=== PATIENT | female | born 1975 | race Caucasian/White ===

== ENCOUNTER 2024-05-28 15:58 | Outpatient (RCR) | payer MEDICARE, MEDICAID, SELFPAY ==
--- NOTE | 2024-05-28 17:31 | OPREHPOC ---
Outpatient Therapy Plan of Care This is a Multidisciplinary Plan of Care that may contain components documented by all disciplines (PT, OT, and ST.) PT Problem 1 PT Problem #1 Knowledge Deficit PT Goal 1 Goal / Goal Update The patient will be independent in a home exercise program. Target Visit 6 PT Problem 2 PT Problem #2 Pain PT Goal 1 Goal / Goal Update The patient will report no greater than 2/10 neck pain at worst Target Visit 12 PT Problem 3 PT Problem #3 Impaired Functional Mobility PT Goal 1 Goal / Goal Update The patient will demonstrate 20 % or less self perceived disability per the Neck Index questionnaire. Target Visit 12 PT Problem 4 PT Problem #4 Impaired Range of Motion PT Goal 1 Goal / Goal Update 1. 50 degrees or better active cervical flexion and extension 2. 40 degrees or better active cervical side bending bilat 3. 75 degrees or better active cervical rotation bilat Target Visit 12 PT Problem 5 PT Problem #5 Impaired Strength PT Goal 1 Goal / Goal Update 1. patient to display 5/5 UE strength 2. 4/5 or better deep neck flexor strength Target Visit 12
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
--- NOTE | 2024-06-18 09:03 | OPREHPOC ---
Outpatient Therapy Plan of Care This is a Multidisciplinary Plan of Care that may contain components documented by all disciplines (PT, OT, and ST.) PT Problem 1 PT Problem #1 Knowledge Deficit PT Goal 1 Goal / Goal Update The patient will be independent in a home exercise program. Target Visit 6 Progress Met PT Problem 2 PT Problem #2 Pain PT Goal 1 Goal / Goal Update The patient will report no greater than 2/10 neck pain at worst Target Visit 12 Progress Not Met PT Problem 3 PT Problem #3 Impaired Functional Mobility PT Goal 1 Goal / Goal Update The patient will demonstrate 20 % or less self perceived disability per the Neck Index questionnaire. Target Visit 12 Progress Not Met PT Problem 4 PT Problem #4 Impaired Range of Motion PT Goal 1 Goal / Goal Update 1. 50 degrees or better active cervical flexion and extension 2. 40 degrees or better active cervical side bending bilat 3. 75 degrees or better active cervical rotation bilat Target Visit 12 Progress Not Met PT Problem 5 PT Problem #5 Impaired Strength PT Goal 1 Goal / Goal Update 1. patient to display 5/5 UE strength 2. 4/5 or better deep neck flexor strength Target Visit 12 Progress Not Met
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
--- NOTE | 2024-07-09 07:36 | OPREHPOC ---
Outpatient Therapy Plan of Care This is a Multidisciplinary Plan of Care that may contain components documented by all disciplines (PT, OT, and ST.) PT Problem 1 PT Problem #1 Knowledge Deficit PT Goal 1 Goal / Goal Update The patient will be independent in a home exercise program. Target Visit 6 Progress Met PT Problem 2 PT Problem #2 Pain PT Goal 1 Goal / Goal Update The patient will report no greater than 2/10 neck pain at worst Target Visit 18 Progress Not Met PT Problem 3 PT Problem #3 Impaired Functional Mobility PT Goal 1 Goal / Goal Update The patient will demonstrate 20 % or less self perceived disability per the Neck Index questionnaire. Target Visit 18 Progress Not Met PT Problem 4 PT Problem #4 Impaired Range of Motion PT Goal 1 Goal / Goal Update 1. 50 degrees or better active cervical flexion and extension 2. 40 degrees or better active cervical side bending bilat 3. 75 degrees or better active cervical rotation bilat. partially met Target Visit 18 Progress Not Met PT Problem 5 PT Problem #5 Impaired Strength PT Goal 1 Goal / Goal Update 1. patient to display 5/5 UE strength 2. 4/5 or better deep neck flexor strength Target Visit 18 Progress Not Met PT Goal 2 Goal / Goal Update progressing
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
--- NOTE | 2024-07-15 09:13 | OPREHPOC ---
Outpatient Therapy Plan of Care This is a Multidisciplinary Plan of Care that may contain components documented by all disciplines (PT, OT, and ST.) PT Problem 1 PT Problem #1 Knowledge Deficit PT Goal 1 Goal / Goal Update The patient will be independent in a home exercise program. Target Visit 6 Progress Met PT Problem 2 PT Problem #2 Pain PT Goal 1 Goal / Goal Update The patient will report no greater than 2/10 neck pain at worst Target Visit 18 Progress Not Met PT Problem 3 PT Problem #3 Impaired Functional Mobility PT Goal 1 Goal / Goal Update The patient will demonstrate 20 % or less self perceived disability per the Neck Index questionnaire. Target Visit 18 Progress Met PT Problem 4 PT Problem #4 Impaired Range of Motion PT Goal 1 Goal / Goal Update 1. 50 degrees or better active cervical flexion and extension 2. 40 degrees or better active cervical side bending bilat 3. 75 degrees or better active cervical rotation bilat. partially met Target Visit 18 Progress Partially Met PT Problem 5 PT Problem #5 Impaired Strength PT Goal 1 Goal / Goal Update 1. patient to display 5/5 UE strength 2. 4/5 or better deep neck flexor strength Target Visit 18 Progress Met PT Goal 2 Goal / Goal Update .
--- NOTE | 2024-07-15 09:14 | PTOPDC ---
Assessment and note entered by JT File, PT Evaluation Information Assessment Status Discharge ICD-10 Condition Codes (PT) Cervicalgia M54.2,Pain in Thoracic Spine M54.6 Onset 05/21/24 Subjective Information patient reports she feels Good today. she reports she was unable to get her morning stretching done before therapy, but reports she still has little to no pain in the neck. she reports her pain does not fluctuate much over a 2- 3/10 pain any more. Reported Pain Level Pain Score 2: Self Report Assessment PT Clinical Summary mrs. reyez presents to skilled PT for her 18th skilled PT visit today. she presents with reduced pain, improve cervical rom, improve UE strength, and improved cervical strength. she has met or partially met nearly all goals. she is ready to transition to an independent HEP at this time. she will be DC'd from skilled PT services today. Plan of Care PT Services Indicated Yes
== END 2024-07-15 15:08 | disposition other institution (70) ==
LOC: CHSPT 15:58
PROVIDERS: Visit Provider Family Medicine
DX: M54.6 Pain in thoracic spine (principal); S16.1XXA Strain of muscle, fascia and tendon at neck level, initial encounter
CPT/HCPCS: 97110; 97140; 97150; 97161

== ENCOUNTER 2024-06-04 09:40 | Outpatient (CLI) | payer MEDICARE, MEDICAID, SELFPAY ==
--- NOTE | ~2024-06-04 | CT_ITS ---
Clinical Indication: Brachiocephalic artery stenosis CT Scan of the Chest with Contrast: Technique: Contiguous sections were acquired throughout the chest after intravenous administration of 75 cc of Omnipaque 350. Dose reduction technique was used on this scan by utilizing automated exposu re control and iterative reconstruction technique. The dose-length product (DLP) was 242.91 mGy-cm. Findings: There is no evidence of any significant mediastinal, hilar or axillary lymphadenopathy. Large densely calcified precarinal lymph node present. There is no filling defect in the pulmonary arterial tree t o suggest pulmonary embolus. There is no evidence of aortic dissection or aneurysm. No significant ar terial stenosis seen of the great vessels or aortic arch region. There is no evidence of pleural or pericardial effusion. Endovascular coils or other metallic artifact present in the left lower lobe. There is a small pulmon astrid AVM peripheral to the coils in the left lower lobe, with nidus measuring approximately 8 mm (axia l image 69). Calcified right lower lobe granuloma present. Images through the upper abdomen reveal no abnormalities. Impression: Small left lower lobe pulmonary AVM with 8 mm nidus and evidence of prior proximal endovascular coili ng. No evidence of brachiocephalic arterial stenosis. Reviewed, dictated and finalized at location M. RINTENDENT ELECTRIC POWER Impression: Small left lower lobe pulmonary AVM with 8 mm nidus and evidence of prior proxi mal endovascular coiling. No evidence of brachiocephalic arterial stenosis.
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
--- OUTSIDE RECORDS SUMMARY | 2024-06-05 22:41 | XMS_ITS | Encounter Summary ---
Author Organization [facility] [employer] [facility] Address [address] [place] [address] Phone Care Team Providers Care Hammer Runner Name Role Phone Robert Bernard MD Primary Care Provider Mark Mccurdy MD Unavailable [phone] Encounter Details Date Type Department Care Team (Latest Contact Info) Description 12/04/2016 Orders Only [facility] CONVERSION Scanning, Provider Social History Tobacco Use Types Packs/Day Years Used Date Smoking Tobacco: Never Assessed Comments Unknown Sex and Gender Information Value Date Recorded Sex Assigned at Not on file 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 Gender Identity Not on file Sexual Orientation Not on file documented as of this encounter Plan of Treatment Not on file documented as of this encounter Procedures Procedure Name Priority Date/Time Associated Diagnosis Comments VASCULAR LABORATORY REPORT 12/04/2016 6:35 PM CDT documented in this encounter Results * VASCULAR LABORATORY REPORT (12/04/2016 6:35 PM CDT) Anatomical Region Laterality Modality Ultrasound us Provider Scanning CV VASCULAR PROCEDURES Final R esult documented in this encounter Visit Diagnoses Not on filedocumented in this encounter Care Teams Hammer Runner Relationship Specialty Start Date End Date Robert Bernard MD PCP - General 10/06/16 Mark Mccurdy MD [address] [place] [address] Referring Physician Cardiology 01/21/20 documented as of this encounter
--- OUTSIDE RECORDS SUMMARY | 2024-06-05 22:41 | XMS_ITS | Encounter Summary ---
Author Organization [facility] Address [address] [place] [address] Phone Care Team Providers Care Office Support Name Role Phone Robert Bernard MD Primary Care Provider Mark Mccurdy MD Unavailable Encounter Details Date Type Department Care Team (Late st Contact Info) Description 07/03/2015 Orders Only [facility] IM CAR CLINCONV ProviderToney MD [address] [place], [place] [id number] Social History Tobacco Use Types Packs/Day Years Used Date Smoking Tobacco: Never Assessed Comments Unknown Sex and Gender Information Value Date Recorded Sex Assigned at Not on file 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 Historical Provider CV CARDIAC SERVICES HUNTER COCHRAN Final Result * CARDIOLOGY REPORT (07/03/2015) Anatomical Region Laterality Modality Other Narrative 07/03/2015 Ordered by an unspecified provider. Historical Provider CV CARDIAC SERVICES HUNTER COCHRAN Final Result documented in this encounter Visit Diagnoses Not on filedocumented in this encounter Care Teams Office Support Relationship Specialty Start Date End Date Robert Bernard MD PCP - General 10/06/16 Mark Mccurdy MD [address] [facility] [address] [place] [address] Referring Physician Cardiology 01/21/20 documented as of this encounter
--- OUTSIDE RECORDS SUMMARY | 2024-06-05 22:41 | XMS_ITS | Encounter Summary ---
Author Organization [facility] Address [address] [place] [address] Phone Care Team Providers Care Tray Checker Name Role Phone Robert Bernard MD Primary Care Provider Mark Mccurdy MD Unavailable [phone] Encounter Details Date Type Department Care Team (Late st Contact Info) Description 02/05/2015 Orders Only [facility] IM CAR CLINCONV ProviderToney MD [address] [place], [place] [id number] Social History Tobacco Use Types Packs/Day Years Used Date Smoking Tobacco: Never Assessed Comments Unknown Sex and Gender Information Value Date Recorded Sex Assigned at Not on file 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 Historical Provider CV CARDIAC SERVICES HUNTER COCHRAN Final Result * CARDIOLOGY REPORT (02/05/2015) Anatomical Region Laterality Modality Other Narrative 02/05/2015 Ordered by an unspecified provider. Historical Provider CV CARDIAC SERVICES HUNTER COCHRAN Final Result documented in this encounter Visit Diagnoses Not on filedocumented in this encounter Care Teams Tray Checker Relationship Specialty Start Date End Date Robert Bernard MD PCP - General 10/06/16 Mark Mccurdy MD [address] [facility] [address] [place] [address] Referring Physician Cardiology 01/21/20 documented as of this encounter
--- OUTSIDE RECORDS SUMMARY | 2024-06-05 22:41 | XMS_ITS | Encounter Summary ---
Author Organization [facility] [employer] [facility] Address [address] [place] [address] Phone Care Team Providers Care Hazmat Technician Name Role Phone Robert Bernard MD Primary Care Provider [phone] Mark Mccurdy MD Unavailable [phone] Encounter Details Date Type Department Care Team (Late st Contact Info) Description 04/14/2015 Orders Only [facility] IM CAR CLINCONV Provider, MD Toney [address] [place] [address] Social History Tobacco Use Types Packs/Day Years Used Date Smoking Tobacco: Never Assessed Comments Unknown Sex and Gender Information Value Date Recorded Sex Assigned at Not on file 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 Historical Provider CV CARDIAC SERVICES HUNTER COCHRAN Final Result documented in this encounter Visit Diagnoses Not on filedocumented in this encounter Care Teams Hazmat Technician Relationship Specialty Start Date End Date Robert Bernard MD PCP - General 10/06/16 Mark Mccurdy MD [address] [place] [address] Referring Physician Cardiology 01/21/20 documented as of this encounter
--- OUTSIDE RECORDS SUMMARY | 2024-06-05 22:41 | XMS_ITS | Encounter Summary ---
Author Organization [facility] Address [address] [place] [address] Phone Care Team Providers Care Operations Business Partner Name Role Phone Robert Bernard MD Primary Care Provider [phone] Mark Mccurdy MD Unavailable [phone] Encounter Details Date Type Department Care Team (Late st Contact Info) Description 07/15/2014 Orders Only [facility] IM CAR CLINCONV ProviderToney MD [address] [place], [place] [phone] Social History Tobacco Use Types Packs/Day Years Used Date Smoking Tobacco: Never Assessed Comments Unknown Sex and Gender Information Value Date Recorded Sex Assigned at Not on file 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 Historical Provider CV CARDIAC SERVICES PROCE DIMAS Final Result * CARDIOLOGY REPORT (07/15/2014) Anatomical Region Laterality Modality Other Narrative 07/15/2014 Ordered by an unspecified provider. Historical Provider CV CARDIAC SERVICES HUNTER COCHRAN Final Result documented in this encounter Visit Diagnoses Not on filedocumented in this encounter Care Teams Operations Business Partner Relationship Specialty Start Date End Date Robert Bernard MD PCP - General 10/06/16 Mark Mccurdy MD [address] [facility] [address] [place] [address] Referring Physician Cardiology 01/21/20 documented as of this encounter
--- OUTSIDE RECORDS SUMMARY | 2024-06-05 22:41 | XMS_ITS | Encounter Summary ---
Author Organization [facility] Address [address] [place] [address] Phone Care Team Providers Care Hoisting Laborer Name Role Phone Robert Bernard MD Primary Care Provider [phone] Mark Mccurdy MD Unavailable [phone] Encounter Details Date Type Department Care Team (Late st Contact Info) Description 09/26/2014 Orders Only [facility] IM CAR CLINCONV ProviderToney MD [address] [place], [place] [phone] Social History Tobacco Use Types Packs/Day Years Used Date Smoking Tobacco: Never Assessed Comments Unknown Sex and Gender Information Value Date Recorded Sex Assigned at Not on file 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 Historical Provider CV CARDIAC SERVICES HUNTER COCHRAN Final Result * CARDIOLOGY REPORT (09/26/2014) Anatomical Region Laterality Modality Other Narrative 09/26/2014 Ordered by an unspecified provider. Historical Provider CV CARDIAC SERVICES HUNTER COCHRAN Final Result documented in this encounter Visit Diagnoses Not on filedocumented in this encounter Care Teams Hoisting Laborer Relationship Specialty Start Date End Date Robert Bernard MD PCP - General 10/06/16 Mark Mccurdy MD [address] [facility] [address] [place] [address] Referring Physician Cardiology 01/21/20 documented as of this encounter
--- OUTSIDE RECORDS SUMMARY | 2024-06-05 22:41 | XMS_ITS | Clinical Summary ---
Author Organization [facility] Address [address] [place] [address]. [place], [place] [address] [place] [address] Care Team Providers Care Shipping Manager Name Role Phone Robert Bernard MD Primary Care Provider Social History Tobacco Use Types Packs/Day Years Used Date Smoking Tobacco: Former Comments No Sex and Gender Information Value Date Recorded Sex Assigned at Not on file Legal Sex Female 9:15 PM CDT Gender Identity Not on file Sexual Orientation Not on file Last Filed Vital Signs Vital Sign Reading Time Taken Comments Blood Pressure 114/82 06/29/2014 2:06 PM BARREL RAISER HELPER Pulse 91 06/29/2014 2:06 PM BARREL RAISER HELPER Temperature - - Respiratory Rate 18 06/29/2014 2:06 PM BARREL RAISER HELPER Oxygen Saturation - - Inhaled Oxygen Concentration - - Weight 64.4 kg (142 lb) 06/29/2014 2:06 PM BARREL RAISER HELPER Height 167.6 cm (5' 6 ) 06/29/2014 2:06 PM BARREL RAISER HELPER Body Mass Index 22.92 06/29/2014 2:06 PM BARREL RAISER HELPER Plan of Treatment Health Maintenance Due Date Last Done Comments Cervical Cancer Screening Pa p Smear (Age 30 to 64) Every 3 Years 1976 Colorectal Cancer Screening Colonoscopy (10 Years) 1976 Annual Physical 1979 Hepatitis C 1994 Hepatitis B Vaccines (1 of 3 - 19+ 3-dose series) 1995 Cervical Cancer Screening Pa p with HPV Testing (Age 30 to 64) Every 5 Years 2006 Cervical Cancer Screening wi th HPV 2006 COVID-19 Vaccine (2023-2 5 season) 2024 Influenza Adult (#1) 2024 02/07/2016 Mammogram Screening 12/20/2024 12/20/2022, 10/31/2022 DTaP, Tdap and Td Vaccines ( 2 - Td or Tdap) 01/10/2026 01/11/2016 Meningococcal B Vaccine Aged Out No l onger eligible based on patient's age to complete this topic Meningococcal Vaccine Aged Out No bebeto mckenzie eligible based on patient's age to complete this topic Pneumococcal Vaccine: Pediatrics (0 to 5 Years) and At-Risk Patients (6 to 64 Years) Aged Out No longer eligible b ased on patient's age to complete this topic RSV Immunizations Under 20 Months Aged Out No longer eligible b ased on patient's age to complete this topic Procedures Procedure Name Priority Date/Time Associated Diagnosis Comments MG DIAG W JESSIE RT DIGI Routine 12/20/2022 1:41 PM CDT Abnormal mammogram from Last 3 Months or Most Recently Relevant to Health Maintenance Results * MG DIAG W JESSIE RT DIGI (12/20/2022 1:41 PM CDT) Anatomical Region Laterality Modality Breast Right Mammography, Rad iographic Imaging 12/20/2022 3:1 8 PM CDT Narrative 12/20/2022 3:25 PM CDT Examination: Digital right diagnostic mammogram with CAD. [id number] Clinical history: Follow-up, abnormal screening mammogram. History of breast cysts. Comparison: 10/31/2022. Technique: True lateral and spot compression CC and MLO right digital mammograms. The exam was interpreted with the use of a computer-aided detection (CAD) system. Additional 3-D Tomosynthesis images were acquired. Tissue density: ??The breast tissue is heterogeneously dense. Findings: The patient returned for additional diagnostic imaging to further evaluate the upper outer quadrant fibroglandular asymmetry identified at screening. The area in question changes in configuration on the true lateral view. Under spot compression there is subtotal effacement with suggestion of an underlying partially obscured round to ovoid mass at the 11:30 position projecting approximately 7 cm deep to the nipple in the CC projection. This measures approximately 1.7 cm in greatest dimension. The visualized margins appear smooth. There is no associated architectural distortion or microcalcification. No other discrete mammographic abnormality is identified. Examination: Right breast ultrasound. Technique:Grayscale and color Doppler images. Findings: Survey was performed from the 9:00-3:00 positions through 12:00 encompassing the broad region of interest. At the 12:00 position 3 cm from the nipple a 1.9 x 1.6 x 0.7 cm simple cyst is demonstrated judged concordant with the mammographic finding. Additional scattered simple cysts are demonstrated measuring up to 1.8 cm in greatest dimension. These are mammographically occult. [place] appearing tissue architecture is otherwise demonstrated. No other sonographically discrete finding is identified. No sonographically suspicious abnormality is identified. Based on these findings, resumption of routine mammographic screening in October 2023 would now seem adequate. These findings were discussed with the patient. IMPRESSION: Additional diagnostic imaging fails to disclose any suspicious abnormality. There are benign findings as described. Resumption of routine mammographic screening in October 2023 would now seem adequate. Recommendation: 1: Routine screening mammogram ??Bilateral ?? in October 2023 Overall assessment: ACR BI-RADS Category 2 - Benign. Return for Routine Follow-Up: Yes Ordered By: RAHEEL YAEGER Interpreted By: Kevin Cabrera MD, 12/20/2022 3:18 PM Raheel Yeager [facility] MAMMO Final Result from Last 3 Months or Most Recently Relevant to Health Maintenance Insurance MEDICARE MEDICAID Care Teams Shipping Manager Relationship Specialty Start Date End Date Robert Bernard MD [address] [place] [phone] PCP - General FAMILY PRACTICE 07/01/19
--- OUTSIDE RECORDS SUMMARY | 2024-06-05 22:41 | XMS_ITS | Encounter Summary ---
Author Organization 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 Historical Provider [facility] Final Result * CARDIOLOGY REPORT (06/06/2015) Anatomical Region Laterality Modality Other Narrative 06/06/2015 Ordered by an unspecified provider. Historical Provider [facility] Final Result documented in this encounter Visit Diagnoses Not on filedocumented in this encounter Care Teams Gis Analyst Developer Relationship Specialty Start Date End Date Robert Bernard MD PCP - General 10/06/16 Mark Mccurdy MD [address] [facility] [address] [place] [address] Referring Physician Cardiology 01/21/20 documented as of this encounter
--- OUTSIDE RECORDS SUMMARY | 2024-06-05 22:41 | XMS_ITS | Referral Summary ---
Author Organization [facility] Address [address] [place] [address] Care Team Providers Care Antenna Specialist Name Role Phone Robert Bernard MD Primary Care Provider [phone] Mark Mccurdy MD Unavailable [phone] Encounters Date Type Department Care Team Description 05/26/2024 Orders Only [facility] Card[facility] [address] [facility] [address] [place] [address] Hema Norton MD PhD 05/26/2024 Telephone [facility] [address] [facility] [address]th [place] [address] [place] [address] Hema Norton MD PhD 05/23/2024 Telephone [facility] [address] [facility] 8th [place] [address] [place] [address] Hema Norton MD PhD 03/10/2024 Orders Only [facility] [address] [facility] 8th [place] [address] [place] [address] Douglas Orta MD from Last 3 Months Allergies No known active allergies Medications venlafaxine 150 mg tablet extended release 24hr 24 hr tablet Take 1 tablet (150 mg total) by mouth daily 04/29/2016 Active omeprazole (PriLOSEC) 20 mg capsule Take 1 capsule (20 mg total) by mouth daily as needed 02/24/2020 Active ARIPiprazole (ABILIFY) 10 mg tablet 1 tablet (10 mg total) daily 03/29/2021 Active baclofen (LIORESAL) 20 mg tabletIndicatio ns:Chronic pain syndrome Take 1 tablet (20 mg total) by mouth every 6 (six) hours 120 tablet 5 03/30/2021 Active atorvastatin (LIPITOR) 10 mg tablet TAKE 1 TABLET BY MOUTH EVERY DAY AT BEDTIME 30 tablet 11 04/24/2022 Active traMADoL (ULTRAM) 50 mg tablet Take by mouth 2 (two) times a day as needed 12/26/2022 Active clopidogreL (PLAVIX) 75 mg tablet TAKE 1 TABLET BY MOUTH DAILY 30 tablet 10 02/21/2024 Active metoprolol XL (TOPROL-XL) 100 mg 24 hr tablet TAKE 1 TABLET BY MOUTH DAILY 30 tablet 10 02/21/2024 Active Active Problems Problem Noted Date Diagnosed Date Patent foramen ovale 12/31/2017 SSS (sick sinus syndrome) (CMS/HCC) 12/27/2017 Presence of cardiac pacemaker 12/27/2017 Chronic pain syndrome 12/06/2017 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 VICE PRESIDENT Gender Identity Not on file Sexual Orientation Not on file Last Filed Vital Signs Vital Sign Reading Time Taken Comments Blood Pressure 115/79 02/26/2023 8:44 AM CDT Pulse 83 02/26/2023 8:44 AM CDT Temperature 36.5 ??C (97.7 ??F) 03/30/2021 10:[address] Respiratory Rate 16 03/30/2021 10:39 AM ORTHODONTIST VICE PRESIDENT Oxygen Saturation 99% 02/26/2023 8:44 AM CDT Inhaled Oxygen Concentration - - Weight 79.4 kg (175 lb) 02/26/2023 8:44 AM CDT Height 162.6 cm (5' 4 ) 12/05/2021 10:25 AM CDT Body Mass Index 30.04 12/05/2021 10:25 AM CDT Plan of Treatment Not on file Goals Goal Patient Goal Type Associated Problems Recent Progress Patient-Stated? Author CCM Chronic Pain Care Plan Chronic Care Management No change(03/30 10:46 AM ORTHODONTIST VICE PRESIDENT) No Gillian Vela RN Note: Problem: Chronic Pain Goals: 1. Minimize further functional decline 2. Maximize quality of life 3. Control pain Strategies: - Activity/exercise program recommendation - Conservative stepwise pain medicine strategy with multi-disciplinary approach - Recommend healthy lifestyle strategies and compensatory methods as needed Medical Devices Implanted Type Area Relocation Associate Device Identifier Shelf Expiration Date Model / Serial / Lot Pacemaker Chest Procedures Procedure Name Priority Date/Time Associated Diagnosis Comments DEVICE CHECK - REMOTE Routine 05/26/2024 9:30 PM ORTHODONTIST VICE PRESIDENT DEVICE CHECK - REMOTE Routine 03/10/2024 3:17 PM CDT from Last 3 Months Results * DEVICE CHECK - REMOTE (05/26/2024 9:30 PM ORTHODONTIST VICE PRESIDENT) Anatomical Region Laterality Modality Other 05/26/2024 9:30 PM ORTHODONTIST VICE PRESIDENT Narrative 06/01/2024 9:32 AM ORTHODONTIST VICE PRESIDENT Interpretation Summary: Battery and Leads (BL) Normal parameters noted on battery and lead(s) --- 1.5 yrs (1 to 1.5 yrs) remaining longevity (implanted 2014). ?Lead impedance, threshold, and RA sensing trends stable and appropriate. ?? No short V-V intervals. R wave out of range --- R wave 4.5 mV. ?? Trend is stable. ?? RV sensitivity is programmed 2.0 mV. Presenting Rhythm (RI) Atrial Sensing-Ventricular Sensing (-VS) --- /VS (SR/ST) 94 to 105 bpm. Arrhythmic events (AE) Atrial High-Rate Episode(s) identified --- Since 10/28/24: ?? 2 SVT/ST detections, max 38 sec, with EGMs appearing to show 1:1 AV rhythm, likely ST, max 182 bpm. Transmission Information (TI) Device Summary Report Follow Up (FU) Patient's primary treating physician will be apprised of findings Procedure Hema Bean MD PhD - 06/01/2024 Interpretation Summary: Battery and Leads (BL) Normal parameters noted on battery and lead(s) --- 1.5 yrs (1 to 1.5 yrs)remaining longevity (implanted 2014). Lead impedance, threshold, and RAsensing trends stable and appropriate. No short V-V intervals. R wave out of range --- R wave 4.5 mV. Trend is stable. RV sensitivityis programmed 2.0 mV. Presenting Rhythm (RI) Atrial Sensing-Ventricular Sensing (-VS) --- /VS (SR/ST) 94 to 105bpm. Arrhythmic events (AE) Atrial High-Rate Episode(s) identified --- Since 03/10/24: 2 SVT/STdetections, max 38 sec, with EGMs appearing to show 1:1 AV rhythm, likelyST, max 182 bpm. Transmission Information (TI) Device Summary Report Follow Up (FU) Patient's primary treating physician will be apprised of findings Hema Norton MD PhD [facility] PROCEDURES Final Result * DEVICE CHECK - REMOTE (03/10/2024 3:17 PM CDT) Anatomical Region Laterality Modality Other 03/10/2024 3:17 PM CDT Narrative 03/17/2024 10:07 AM ORTHODONTIST VICE PRESIDENT Interpretation Summary: Battery and Leads (BL) Normal parameters noted on battery and lead(s) --- 1.5 yrs (1 to 2 yrs) remaining longevity (implanted 2014). ?? Lead impedance, threshold, and RA sensing trends stable and appropriate. ??No short V-V intervals. R wave out of range --- R wave 3.8 mV. ?? Trend is stable over the past year. ?RV sensitivity is programmed 2.0 mV. ?CHANNEL PARTNERS <0.1%. Presenting Rhythm (RI) Atrial Sensing-Ventricular Sensing (-VS) --- /VS (SR) 74 to 84 bpm. Arrhythmic events (AE) Atrial High-Rate Episode(s) identified --- Since 11/20/23: ?? 2 SVT/ST detections, max 25 sec, with EGMs appearing to show 1:1 AV rhythm, likely ST, max 170s. Anticoagulation ??(AC) Patient is not on anticoagulant therapy Anticoagulation is not clinically indicated Transmission Information (TI) Device Summary Report Procedure Note Douglas Orta MD - 03/17/2024 Interpretation Summary: Battery and Leads (BL) Normal parameters noted on battery and lead(s) --- 1.5 yrs (1 to 2 yrs)remaining longevity (implanted 2014). Lead impedance, threshold, and RAsensing trends stable and appropriate. No short V-V intervals. R wave out of range --- R wave 3.8 mV. Trend is stable over the pastyear. RV sensitivity is programmed 2.0 mV. CHANNEL PARTNERS <0.1%. Presenting Rhythm (RI) Atrial Sensing-Ventricular Sensing (-VS) --- /VS (SR) 74 to 84 bpm. Arrhythmic events (AE) Atrial High-Rate Episode(s) identified --- Since 11/20/23: 2 SVT/STdetections, max 25 sec, with EGMs appearing to show 1:1 AV rhythm, likelyST, max 170s. Anticoagulation (AC) Patient is not on anticoagulant therapy Anticoagulation is not clinically indicated Transmission Information (TI) Device Summary Report Douglas Orta MD [facility] PROCEDURES Final Result from Last 3 Months [place] [address] [facility] Care Teams Antenna Specialist Relationship Specialty Start Date End Date Robert Bernard MD PCP - General 10/06/16 Mark Mccurdy MD [address] [place] [address] Referring Physician Cardiology 01/21/20
--- OUTSIDE RECORDS SUMMARY | 2024-06-05 22:41 | XMS_ITS | Encounter Summary ---
Author Organization [facility] Address [address] [place] [address] Phone Care Team Providers Care Mems Engineer Name Role Phone Robert Bernard MD Primary Care Provider Mark Mccurdy MD Unavailable [phone] Encounter Details Date Type Department Care Team (Late st Contact Info) Description 12/10/2015 Orders Only [facility] Provider, MD Toney [address] [place] [id number] Social History Tobacco Use Types Packs/Day Years Used Date Smoking Tobacco: Never Assessed Comments Unknown Sex and Gender Information Value Date Recorded Sex Assigned at Not on file Legal Sex Female 5:12 AM DENTURE WAXER Gender Identity Not on file Sexual Orientation Not on file documented as of this encounter Plan of Treatment Not on file documented as of this encounter Procedures Procedure Name Priority Date/Time Associated Diagnosis Comments CARDIOLOGY REPORT 12/10/2015 documented in this encounter Results * CARDIOLOGY REPORT (12/10/2015) Anatomical Region Laterality Modality Other Narrative 12/10/2015 Ordered by an unspecified provider. Historical Provider [facility] Final Result documented in this encounter Visit Diagnoses Not on filedocumented in this encounter Care Teams Mems Engineer Relationship Specialty Start Date End Date Robert Bernard MD PCP - General 10/06/16 Mark Mccurdy MD [address] [place] [address] Referring Physician Cardiology 01/21/20 documented as of this encounter
--- OUTSIDE RECORDS SUMMARY | 2024-06-05 22:41 | XMS_ITS | Encounter Summary ---
Author Organization [facility] Address [address] [place] [address] Phone Care Team Providers Care Carpentry Teacher Name Role Phone Robert Bernard MD Primary Care Provider Mark Mccurdy MD Unavailable [phone] Encounter Details Date Type Department Care Team (Late st Contact Info) Description 07/16/2016 Orders Only [facility] ProviderToney MD [address] [place], [place] [id number] Social History Tobacco Use Types Packs/Day Years Used Date Smoking Tobacco: Never Assessed Comments Unknown Sex and Gender Information Value Date Recorded Sex Assigned at Not on file Legal Sex Female 5:12 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 Historical Provider [facility] Final Result * CARDIOLOGY REPORT (07/16/2016) Anatomical Region Laterality Modality Other Narrative 07/16/2016 Ordered by an unspecified provider. Historical Provider [facility] Final Result documented in this encounter Visit Diagnoses Not on filedocumented in this encounter Care Teams Carpentry Teacher Relationship Specialty Start Date End Date Robert Bernard MD PCP - General 10/06/16 Mark Mccurdy MD [address] [facility] [address] [place] [address] Referring Physician Cardiology 01/21/20 documented as of this encounter
--- OUTSIDE RECORDS SUMMARY | 2024-06-05 22:41 | XMS_ITS | Encounter Summary ---
Author Organization [facility] Address [address] [place] [address] Phone Care Team Providers Care Management Lead Name Role Phone Robert Bernard MD Primary Care Provider Mark Mccurdy MD Unavailable [phone] Encounter Details Date Type Department Care Team (Late st Contact Info) Description 12/29/2014 Orders Only [facility] ProviderToney MD [address] [place], [place] [id number] Social History Tobacco Use Types Packs/Day Years Used Date Smoking Tobacco: Never Assessed Comments Unknown Sex and Gender Information Value Date Recorded Sex Assigned at Not on file Legal Sex Female 5:12 AM EDITOR GREETING CARD Gender Identity Not on file Sexual Orientation Not on file documented as of this encounter Plan of Treatment Not on file documented as of this encounter Procedures Procedure Name Priority Date/Time Associated Diagnosis Comments CARDIOLOGY REPORT 12/29/2014 CARDIOLOGY REPORT 12/29/2014 documented in this encounter Results * CARDIOLOGY REPORT (12/29/2014) Anatomical Region Laterality Modality Other Narrative 12/29/2014 Ordered by an unspecified provider. Historical Provider [facility] Final Result * CARDIOLOGY REPORT (12/29/2014) Anatomical Region Laterality Modality Other Narrative 12/29/2014 Ordered by an unspecified provider. Historical Provider [facility] Final Result documented in this encounter Visit Diagnoses Not on filedocumented in this encounter Care Teams Management Lead Relationship Specialty Start Date End Date Robert Bernard MD PCP - General 10/06/16 Mark Mccurdy MD [address] [facility] [address] [place] [address] Referring Physician Cardiology 01/21/20 documented as of this encounter
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
--- OUTSIDE RECORDS SUMMARY | 2024-06-05 22:41 | XMS_ITS | Encounter Summary ---
Author Organization [facility] Address [address] [place] [address] Phone Care Team Providers Care Plate Grinder Name Role Phone Robert Bernard MD Primary Care Provider [phone] Mark Mccurdy MD Unavailable [phone] Encounter Details Date Type Department Care Team (Late st Contact Info) Description 11/05/2016 Orders Only [facility] ProviderToney MD [address] [place], [place] [id number] Social History Tobacco Use Types Packs/Day Years Used Date Smoking Tobacco: Never Assessed Comments Unknown Sex and Gender Information Value Date Recorded Sex Assigned at Not on file Legal Sex Female 5:12 AM CLINICAL APPLICATION SPECIALIST Gender Identity Not on file Sexual Orientation Not on file documented as of this encounter Plan of Treatment Not on file documented as of this encounter Procedures Procedure Name Priority Date/Time Associated Diagnosis Comments CARDIOLOGY REPORT 11/05/2016 CARDIOLOGY REPORT 11/05/2016 documented in this encounter Results * CARDIOLOGY REPORT (11/05/2016) Anatomical Region Laterality Modality Other Narrative 11/05/2016 Ordered by an unspecified provider. Historical Provider [facility] Final Result * CARDIOLOGY REPORT (11/05/2016) Anatomical Region Laterality Modality Other Narrative 11/05/2016 Ordered by an unspecified provider. Historical Provider [facility] Final Result documented in this encounter Visit Diagnoses Not on filedocumented in this encounter Care Teams Plate Grinder Relationship Specialty Start Date End Date Robert Bernard MD PCP - General 10/06/16 Mark Mccurdy MD [address] [facility] [address] [place] [address] Referring Physician Cardiology 01/21/20 documented as of this encounter
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
--- OUTSIDE RECORDS SUMMARY | 2024-06-05 22:41 | XMS_ITS | Encounter Summary ---
Author Organization [facility] Healthcare Address [address] [place] [address] Care Team Providers Care Telecommunications Administrator Name Role Phone Robert Bernard MD Primary Care Provider Mark Mccurdy MD Unavailable [phone] Reason for Visit * Reason Onset Date Comments Med Refill 10/27/2019 Encounter Details Date Type Department Care Team (Late st Contact Info) Description 10/27/2019 Telephone [facility] [place] [address] [facility] [address] [place] [address] Olamide Pruitt MD [address] [facility] [address] [place] [address] Med Refill Social History Tobacco Use Types Packs/Day Years Used Date Smoking Tobacco: Former Cigarettes Q uit: 2007 Smokeless Tobacco: Never AUDIT-C Answer Date Recorded Q1: How often do you have a drink containing alc ohol? Never 10/28/2019 Average Number of Drinks Not on file 020 Frequency of Binge Drinking Not on file 10/12 Comments Unknown Sex and Gender Information Value Date Recorded Sex Assigned at Not on file Legal Sex Female 5:12 AM SCISSORS SHARPENER Gender Identity Not on file Sexual Orientation Not on file documented as of this encounter Plan of Treatment Not on file documented as of this encounter Goals Goal Patient Goal Type Associated Problems Recent Progress Patient-Stated? Author CCM Chronic Pain Care Plan Chronic Care Management No change(03/30 10:46 AM SCISSORS SHARPENER) No Gillian Vela, RN Note: Problem: Chronic Pain Goals: 1. Minimize further functional decline 2. Maximize quality of life 3. Control pain Strategies: - Activity/exercise program recommendation - Conservative stepwise pain medicine strategy with multi-disciplinary approach - Recommend healthy lifestyle strategies and compensatory methods as needed documented as of this encounter Visit Diagnoses Not on filedocumented in this encounter Care Teams Telecommunications Administrator Relationship Specialty Start Date End Date Robert Bernard MD PCP - General 10/06/16 Mark Mccurdy MD [address] [place] [address] Referring Physician Cardiology 01/21/20 documented as of this encounter
--- OUTSIDE RECORDS SUMMARY | 2024-06-05 22:41 | XMS_ITS | Encounter Summary ---
Author Organization [facility] Address [address] [place] [address] Phone Care Team Providers Care Senior Manager Asset Protection Name Role Phone Robert Bernard MD Primary Care Provider Mark Mccurdy MD Unavailable [phone] Encounter Details Date Type Department Care Team (Late st Contact Info) Description 09/05/2014 Orders Only [facility] ProviderToney MD [address] [place], [place] [id number] Social History Tobacco Use Types Packs/Day Years Used Date Smoking Tobacco: Never Assessed Comments Unknown Sex and Gender Information Value Date Recorded Sex Assigned at Not on file 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 Historical Provider [facility] Final Result * CARDIOLOGY REPORT (09/05/2014) Anatomical Region Laterality Modality Other Narrative 09/05/2014 Ordered by an unspecified provider. Historical Provider CV CARDIAC SERVICES [facility] Final Result documented in this encounter Visit Diagnoses Not on filedocumented in this encounter Care Teams Senior Manager Asset Protection Relationship Specialty Start Date End Date Robert Bernard MD PCP - General 10/06/16 Mark Mccurdy MD [address] [facility] [address] [place] [address] Referring Physician Cardiology 01/21/20 documented as of this encounter
--- OUTSIDE RECORDS SUMMARY | 2024-06-05 22:41 | XMS_ITS | Clinical Summary ---
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 Dyslipidemia 11/02/2014 Encounters Date Type Department Care Team Description 05/26/2024 Orders Only [facility] Cardiology [address] [facility] [address] [place] [address] Hema Norton MD PhD 05/26/[address] [facility] 8th [place] [address] [place] [address] Hema Norton MD PhD 05/23/[address] 8th [place] [address] [place] [address] Hema Norton MD PhD 03/10/2024 Orders Only [address] 8th [place] [address] [place] [address] Douglas Orta MD from Last 3 Months Surgical History Surgery Date Site/Laterality Comments CARDIAC PACEMAKER PLACEMENT Pacemaker Placement - Heart pacer placed 07/2013. 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 History of arteriovenous mal formation - (Added by TW Conv) Stroke (HCC) Anxiety Chronic pain Lower back pain Memory impairment Sick sinus syndrome (CMS/HCC) (HCC) Neuropathy (CMS/HCC) Depression Dyslipidemia Tachycardia Vision impairment Family History Medical History Relation Name Comments Diabetes Brother Family history of diabetes mellitus - (Added by TW Conv) Arrhythmia Father Family history of pacemaker - (Added by TW Conv) Hypertension Father Family history of hypertension - (Added by TW Conv) Anxiety disorder Mother Anxiety - ( Added by TW Conv) Chronic Pain Mother Chronic pain - (Added by TW Conv) Depression Mother Family history of depression - (Added by TW Conv) Diabetes Mother Family history of diabetes mellitus - (Added by TW Conv) Heart disease Mother Family history of cardiac disorder - (Added by TW Conv) Stent Mother Family history of stent - (Added by TW Conv) Relation Name Status Comments Brother Father Mother Social History Tobacco Use Types Packs/Day Years Used Date Smoking Tobacco: Former Cigarettes Q uit: 2008 Smokeless Tobacco: Never Alcohol Use Standard Drinks/Week [...] on file 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 Gender Identity Not on file Sexual Orientation Not on file Obstetrics History Last Filed Vital Signs Vital Sign Reading Time Taken Comments Blood Pressure 115/79 02/26/2023 8:44 AM CDT Pulse 83 02/26/2023 8:44 AM CDT Temperature 36.5 ??C (97.7 ??F) 03/30/2021 10:[address] Respiratory Rate 16 03/30/2021 10:39 AM PORCELAIN BUILDUP ASSISTANT Oxygen Saturation 99% 02/26/2023 8:44 AM CDT Inhaled Oxygen Concentration - - Weight 79.4 kg (175 lb) 02/26/2023 8:44 AM CDT Height 162.6 cm (5' 4 ) 12/05/2021 10:25 AM CDT Body Mass Index 30.04 12/05/2021 10:25 AM CDT Plan of Treatment Health Maintenance Due Date Last Done Comments Breast Cancer Screening-Mammogram 1976 Colon Cancer Screening-Colonoscopy 1976 Depression Screening 1976 Hepatitis C Screening 1976 Hepatitis B Screening 1994 Regular Well Visit/Exam 18-64 1994 Influenza Vaccine (#1) 2024 8, 02/07/2016 DTaP/Tdap/Td Vaccine (3 - Td or Tdap) 01/10/2026 01/11/2016, 10/03/2011 Pneumococcal vaccine <65 Aged Out No longer eligible based on patient's age to complete this topic Goals Goal Patient Goal Type Associated Problems Recent Progress Patient-Stated? Author CCM Chronic Pain Care Plan Chronic Care Management No change(03/30 10:46 AM PORCELAIN BUILDUP ASSISTANT) No Gillian Vela, RN Note: Problem: Chronic Pain Goals: 1. Minimize further functional decline 2. Maximize quality of life 3. Control pain Strategies: - Activity/exercise program recommendation - Conservative stepwise pain medicine strategy with multi-disciplinary approach - Recommend healthy lifestyle strategies and compensatory methods as needed Medical Devices Implanted Type Area Credit Risk Management Director Device Identifier Shelf Expiration Date Model / Serial / Lot Pacemaker Chest Procedures Procedure Name Priority Date/Time Associated Diagnosis Comments DEVICE CHECK - REMOTE Routine 05/26/2024 9:30 PM PORCELAIN BUILDUP ASSISTANT DEVICE CHECK - REMOTE Routine 03/10/2024 3:17 PM CDT from Last 3 Months Results * DEVICE CHECK - REMOTE (05/26/2024 9:30 PM PORCELAIN BUILDUP ASSISTANT) Anatomical Region Laterality Modality Other 05/26/2024 9:30 PM PORCELAIN BUILDUP ASSISTANT Narrative 06/01/2024 9:32 AM PORCELAIN BUILDUP ASSISTANT Interpretation Summary: Battery and Leads (BL) Normal parameters noted on battery and lead(s) --- 1.5 yrs (1 to 1.5 yrs) remaining longevity (implanted 2014). ?Lead impedance, threshold, and RA sensing trends stable and appropriate. ?? No short V-V intervals. R wave out of range --- R wave 4.5 mV. ?? Trend is stable. ?? RV sensitivity is programmed 2.0 mV. Presenting Rhythm ([place]) Atrial Sensing-Ventricular Sensing (-VS) --- /VS (SR/ST) 94 to 105 bpm. Arrhythmic events (AE) Atrial High-Rate Episode(s) identified --- Since 03/10/24: ?? 2 SVT/ST detections, max 38 sec, with EGMs appearing to show 1:1 AV rhythm, likely ST, max 182 bpm. Transmission Information (TI) Device Summary Report Follow Up (FU) Patient's primary treating physician will be apprised of findings Procedure Note Hema Norton MD PhD - 06/01/2024 Interpretation Summary: Battery and Leads (BL) Normal parameters noted on battery and lead(s) --- 1.5 yrs (1 to 1.5 yrs)remaining longevity (implanted 2014). Lead impedance, threshold, and RAsensing trends stable and appropriate. No short V-V intervals. R wave out of range --- R wave 4.5 mV. Trend is stable. RV sensitivityis programmed 2.0 mV. Presenting Rhythm (KY) Atrial Sensing-Ventricular Sensing (-VS) --- /VS (SR/ST) [...] 3:17 PM CDT Narrative 03/17/2024 10:07 AM PORCELAIN BUILDUP ASSISTANT Interpretation Summary: Battery and Leads (BL) Normal parameters noted on battery and lead(s) --- 1.5 yrs (1 to 2 yrs) remaining longevity (implanted 2014). ?? Lead impedance, threshold, and RA sensing trends stable and appropriate. ??No short V-V intervals. R wave out of range --- R wave 3.8 mV. ?? Trend is stable over the past year. ?RV sensitivity is programmed 2.0 mV. ?DATABASES SOFTWARE CONSULTANT <0.1%. Presenting Rhythm ([place]) Atrial Sensing-Ventricular Sensing (-VS) --- /VS (SR) [...] pastyear. RV sensitivity is programmed 2.0 mV. DATABASES SOFTWARE CONSULTANT <0.1%. Presenting Rhythm ([place]) Atrial Sensing-Ventricular Sensing (-VS) --- /VS (SR) 74 to 84 bpm. Arrhythmic events (AE) Atrial High-Rate Episode(s) identified --- Since 11/20/23: 2 SVT/STdetections, max 25 sec, with EGMs appearing to show 1:1 AV rhythm, likelyST, max 170s. Anticoagulation (AC) Patient is not on anticoagulant therapy Anticoagulation is not clinically indicated Transmission Information (TI) Device Summary Report Kedarpaige Orta MD CV CARDIAC SERVI [facility]RA PROCEDURES Final Result from Last 3 Months Insurance [facility] MEDICARE [facility] PL[facility] Care Teams Oil And Gas Exploration Technician Relationship Specialty Start Date End Date Robert Bernard MD PCP - General 10/06/16 Mark Mccurdy MD [address] [place] [address] Referring Physician Cardiology 01/21/20
--- OUTSIDE RECORDS SUMMARY | 2024-06-05 22:41 | XMS_ITS | Encounter Summary ---
Author Organization [facility] Address [address] [place] [address] Phone Care Team Providers Care Director Employee Safety And Health Name Role Phone Robert Bernard MD Primary Care Provider Mark Mccurdy MD Unavailable [phone] Encounter Details Date Type Department Care Team (Late st Contact Info) Description 02/01/2015 Orders Only [facility] ProviderToney MD [address] [place], [place] [id number] Social History Tobacco Use Types Packs/Day Years Used Date Smoking Tobacco: Never Assessed Comments Unknown Sex and Gender Information Value Date Recorded Sex Assigned at Not on file 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 Historical Provider CV CARDIAC [facility] Final Result * CARDIOLOGY REPORT (02/01/2015) Anatomical Region Laterality Modality Other Narrative 02/01/2015 Ordered by an unspecified provider. Historical Provider CV CARDIAC SERVICES [facility] Final Result documented in this encounter Visit Diagnoses Not on filedocumented in this encounter Care Teams Director Employee Safety And Health Relationship Specialty Start Date End Date Robert Bernard MD PCP - General 10/06/16 Mark Mccurdy MD [address] [facility] [address] [place] [address] Referring Physician Cardiology 01/21/20 documented as of this encounter
--- OUTSIDE RECORDS SUMMARY | 2024-06-05 22:41 | XMS_ITS | Encounter Summary ---
Author Organization [facility] Address [address] [place] [address] Phone Care Team Providers Care Public Policy Manager Name Role Phone Robert Bernard MD Primary Care Provider Mark Mccurdy MD Unavailable [phone] Encounter Details Date Type Department Care Team (Late st Contact Info) Description 10/19/2017 Telephone [facility] Cardiology [facility] [address]th [place] [address] [place] [id number] Shanique Maharaj, MPH Social History Tobacco Use Types Packs/Day Years Used Date Smoking Tobacco: Former Comments Unknown Sex and Gender Information Value Date Recorded Sex Assigned at Not on file Legal Sex Female 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
--- OUTSIDE RECORDS SUMMARY | 2024-06-05 22:41 | XMS_ITS | Encounter Summary ---
Author Organization [facility] Address [address] [place] [address] Phone Care Team Providers Care Plaster Mixer Name Role Phone Robert Bernard MD Primary Care Provider Mark Mccurdy MD Unavailable [phone] Encounter Details Date Type Department Care Team (Late st Contact Info) Description 09/24/2015 Orders Only [facility] ProviderToney MD [address] [place], [place] [phone] Social History Tobacco Use Types Packs/Day Years Used Date Smoking Tobacco: Never Assessed Comments Unknown Sex and Gender Information Value Date Recorded Sex Assigned at Not on file Legal Sex Female 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 Historical Provider [facility] CARDIAC [facility] Final Result * CARDIOLOGY REPORT (09/24/2015) Anatomical Region Laterality Modality Other Narrative 09/24/2015 Ordered by an unspecified provider. Historical Provider CV CARDIAC SERVICES [facility] Final Result documented in this encounter Visit Diagnoses Not on filedocumented in this encounter Care Teams Plaster Mixer Relationship Specialty Start Date End Date Robert Bernard MD PCP - General 10/06/16 Mark Mccurdy MD [address] [facility] [address] [place] [address] Referring Physician Cardiology 01/21/20 documented as of this encounter
--- OUTSIDE RECORDS SUMMARY | 2024-06-05 22:41 | XMS_ITS | Encounter Summary ---
Author Organization [facility] Address [address] [place] [address] Phone Care Team Providers Care Chip Bin Operator Name Role Phone Robert Bernard MD Primary Care Provider [phone] Mark Mccurdy MD Unavailable [phone] Encounter Details Date Type Department Care Team (Late st Contact Info) Description 07/28/2014 Orders Only [facility] Provider, MD Toney [address] [place] [id number] Social History Tobacco Use Types Packs/Day Years Used Date Smoking Tobacco: Never Assessed Comments Unknown Sex and Gender Information Value Date Recorded Sex Assigned at Not on file 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 Historical Provider CV CARDIAC SERVICES [facility] Final Result documented in this encounter Visit Diagnoses Not on filedocumented in this encounter Care Teams Chip Bin Operator Relationship Specialty Start Date End Date Robert Bernard MD PCP - General 10/06/16 Mark Mccurdy MD [address] [place] [address] Referring Physician Cardiology 01/21/20 documented as of this encounter
--- OUTSIDE RECORDS SUMMARY | 2024-06-05 22:41 | XMS_ITS | Encounter Summary ---
Author Organization [facility] Address [address] [place] [address] Phone Care Team Providers Care Senior Sales Engineer Name Role Phone Robert Bernard MD Primary Care Provider Mark Mccurdy MD Unavailable [phone] Encounter Details Date Type Department Care Team (Late st Contact Info) Description 07/30/2014 Orders Only [facility]INCON[facility] Provider, MD Toney [address] [place] [address] Social History Tobacco Use Types Packs/Day Years Used Date Smoking Tobacco: Never Assessed Comments Unknown Sex and Gender Information Value Date Recorded Sex Assigned at Not on file 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 Historical Provider CV CARDIAC SERVICES HUNTER CCOHRAN Final Result documented in this encounter Visit Diagnoses Not on filedocumented in this encounter Care Teams Senior Sales Engineer Relationship Specialty Start Date End Date Robert Bernard MD PCP - General 10/06/16 Mark Mccurdy MD [address] [place] [address] Referring Physician Cardiology 01/21/20 documented as of this encounter
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
== END 2024-06-04 09:41 | disposition home or self-care (01) ==
LOC: CHSIMG 09:44
PROVIDERS: PCP Family Medicine; Visit Provider Family Medicine
DX: S13.4XXA Sprain of ligaments of cervical spine, initial encounter (principal); I77.1 Stricture of artery; Q25.72 Congenital pulmonary arteriovenous malformation; M43.02 Spondylolysis, cervical region
CPT/HCPCS: 71260; 72125; Q9967

== ENCOUNTER 2024-06-26 13:33 | Outpatient (CLI) | payer MEDICAID, SELFPAY ==
--- NOTE | ~2024-06-26 | MM_ITS ---
EXAMINATION: MM screening monet BI w hernandez HISTORY: Screening TECHNIQUE: Craniocaudal and mediolateral oblique 3-D tomosynthesis images were obtained and synthetic 2-D images were generated. CAD analysis was submitted and interpreted. COMPARISON: No prior mammogram is available for comparison at this institution. BREAST PARENCHYMAL COMPOSITION: Dense: The breasts are heterogeneously dense, which may obscure small masses FINDINGS: There are bilateral nodular asymmetries centered in the upper outer quadrant of both breast s. There are no suspicious calcifications or distinct architectural distortion. IMPRESSION: 1. Bilateral nodular asymmetries. 2. Additional mammographic views and possible breast ultrasound are recommended. BI-RADS Category 0: Incomplete: Needs additional imaging evaluation. Reviewed, dictated and finalized at location B. T PROTECTION AGENT IMPRESSION: 1. Bilateral nodular asymmetries. 2. Additional mammographic views and possible breast ultrasound are recommended . BI-RADS Category 0: Incomplete: Needs additional imaging evaluation.
--- OUTSIDE RECORDS SUMMARY | 2024-06-26 13:38 | XMS_ITS | Encounter Summary ---
Author Organization [facility] [employer] [facility] Address [address] [place] [address] Phone Care Team Providers Care Pipe Recovery Specialist Name Role Phone Robert Bernard MD Primary Care Provider [phone] Mark Mccurdy MD Unavailable [phone] Encounter Details Date Type Department Care Team (Latest Contact Info) Description 12/04/2016 Orders Only [facility] CONVERSION Scanning, Provider Social History Tobacco Use Types Packs/Day Years Used Date Smoking Tobacco: Never Assessed Comments Unknown Sex and Gender Information Value Date Recorded Sex Assigned at Not on file 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
--- OUTSIDE RECORDS SUMMARY | 2024-06-26 13:38 | XMS_ITS | Encounter Summary ---
Author Organization [facility] Address [address] [place] [address] Phone Care Team Providers Care Carriage Feeder Name Role Phone Robert Bernard MD Primary Care Provider Mark Mccurdy MD Unavailable [phone] Encounter Details Date Type Department Care Team (Late st Contact Info) Description 02/01/2015 Orders Only [facility] IM CAR CLINCONV ProviderToney MD [address] [place], [place] [phone] Social History Tobacco Use Types Packs/Day Years Used Date Smoking Tobacco: Never Assessed Comments Unknown Sex and Gender Information Value Date Recorded Sex Assigned at Not on file 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
--- OUTSIDE RECORDS SUMMARY | 2024-06-26 13:38 | XMS_ITS | Encounter Summary ---
Author Organization [facility] Address [address] [place] [address] Phone Care Team Providers Care Conversion Developer Name Role Phone Robert Bernard MD Primary Care Provider Mark Mccurdy MD Unavailable [phone] Encounter Details Date Type Department Care Team (Late st Contact Info) Description 07/15/2014 Orders Only [facility] IM CAR CLINCONV ProviderToney MD [address] [place], [place] [phone] Social History Tobacco Use Types Packs/Day Years Used Date Smoking Tobacco: Never Assessed Comments Unknown Sex and Gender Information Value Date Recorded Sex Assigned at Not on file 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
--- OUTSIDE RECORDS SUMMARY | 2024-06-26 13:38 | XMS_ITS | Encounter Summary ---
Author Organization [facility] Address [address] [place] [address] Phone Care Team Providers Care Defect Repairer Glassware Name Role Phone Robert Bernard MD Primary Care Provider [phone] Mark Mccurdy MD Unavailable [phone] Encounter Details Date Type Department Care Team (Late st Contact Info) Description 07/16/2016 Orders Only [facility] IM CAR CLINCONV ProviderToney MD [address] [place], [place] [phone] Social History Tobacco Use Types Packs/Day Years Used Date Smoking Tobacco: Never Assessed Comments Unknown Sex and Gender Information Value Date Recorded Sex Assigned at Not on file 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
--- OUTSIDE RECORDS SUMMARY | 2024-06-26 13:38 | XMS_ITS | Encounter Summary ---
Author Organization [facility] [employer] [facility] Address [address] [place] [address] Phone Care Team Providers Care Manager Patient Name Role Phone Robert Bernard MD Primary Care Provider [phone] Mark Mccurdy MD Unavailable [phone] Encounter Details Date Type Department Care Team (Late st Contact Info) Description 12/10/2015 Orders Only [facility] IM CAR CLINCONV Provider, MD Toney [address] [place] [address] Social History Tobacco Use Types Packs/Day Years Used Date Smoking Tobacco: Never Assessed Comments Unknown Sex and Gender Information Value Date Recorded Sex Assigned at Not on file 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
--- OUTSIDE RECORDS SUMMARY | 2024-06-26 13:38 | XMS_ITS | Encounter Summary ---
Author Organization [facility] Address [address] [place] [address] Phone Care Team Providers Care Can Line Operator Name Role Phone Robert Bernard MD Primary Care Provider Mark Mccurdy MD Unavailable [phone] Encounter Details Date Type Department Care Team (Late st Contact Info) Description 09/24/2015 Orders Only [facility] IM CAR CLINCONV ProviderToney MD [address] [place], [place] [phone] Social History Tobacco Use Types Packs/Day Years Used Date Smoking Tobacco: Never Assessed Comments Unknown Sex and Gender Information Value Date Recorded Sex Assigned at Not on file 

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
--- OUTSIDE RECORDS SUMMARY | 2024-06-26 13:38 | XMS_ITS | Encounter Summary ---
Author Organization [facility] Address [address] [place] [address] Phone Care Team Providers Care Quality Assurance Calibrator Name Role Phone Robert Bernard MD Primary Care Provider [phone] Mark Mccurdy MD Unavailable [phone] Encounter Details Date Type Department Care Team (Late st Contact Info) Description 07/03/2015 Orders Only [facility]INCON[facility] ProviderToney MD [address] [place], [place] [id number] Social History Tobacco Use Types Packs/Day Years Used Date Smoking Tobacco: Never Assessed Comments Unknown Sex and Gender Information Value Date Recorded Sex Assigned at Not on file 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
--- OUTSIDE RECORDS SUMMARY | 2024-06-26 13:38 | XMS_ITS | Encounter Summary ---
Author Organization [facility] Address [address] [place] [address] Phone Care Team Providers Care Pediatrician Managing Partner Name Role Phone Robert Bernard MD Primary Care Provider Mark Mccurdy MD Unavailable [phone] Encounter Details Date Type Department Care Team (Late st Contact Info) Description 11/05/2016 Orders Only [facility] ProviderToney MD [address] [place], [place] [id number] Social History Tobacco Use Types Packs/Day Years Used Date Smoking Tobacco: Never Assessed Comments Unknown Sex and Gender Information Value Date Recorded Sex Assigned at Not on file 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
--- OUTSIDE RECORDS SUMMARY | 2024-06-26 13:38 | XMS_ITS | Encounter Summary ---
Author Organization [facility] Address [address] [place] [address] Phone Care Team Providers Care Human Resources Trainee Name Role Phone Robert Bernard MD Primary Care Provider Mark Mccurdy MD Unavailable [phone] Encounter Details Date Type Department Care Team (Late st Contact Info) Description 12/29/2014 Orders Only [facility] ProviderToney MD [address] [place], [place] [id number] Social History Tobacco Use Types Packs/Day Years Used Date Smoking Tobacco: Never Assessed Comments Unknown Sex and Gender Information Value Date Recorded Sex Assigned at Not on file 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
--- OUTSIDE RECORDS SUMMARY | 2024-06-26 13:38 | XMS_ITS | Patient Health Summary ---
Author Organization [facility] [employer] Address [address] [place] [address] Care Team Providers Care Sawdust Machine Operator Name Role Phone Robert Bernard MD Primary Care Provider [phone] Note from [facility] [place][note 2],non-owned Affiliates and Associated Physician Practices is amultiple site organization consisting of ambulatory clinics and hospital sitesin [place], [place], [place] and [place]. This disclosure is being madepursuant to the Care Everywhere program and may not contain all information available regarding this patient. Last updated 18.[facility] [employer] Allergies No known active allergies Medications * Be aware that medications may not be up to date on this document. Alwaysverify current medications with the patient. * methocarbamol (Robaxin) 750 MG tablet(Started 05/21/2024) Take 1 (one) tablet by mouth every 6 hours as needed for Muscle Spasms * HYDROcodone-acetaminophen ([place]) 5-325 MG tablet(Started 05/21/2024) Take 1 (one) [...] Comments Blood Pressure 138/82 05/21/2024 4:51 PM [facility] Pulse 89 05/21/2024 4:51 PM [facility] Temperature 36.3 C (97.4 F) 05/21/2024 4:51 PM [facility] Respiratory Rate 20 05/21/2024 4:51 PM [facility] Oxygen Saturation 97% 05/21/2024 4:51 PM [facility] Inhaled Oxygen Concentration - - Weight 72.6 kg (160 lb) 05/21/2024 2:19 PM [facility] Height 162.6 cm (5' 4 ) 05/21/2024 2:19 PM [facility] Body Mass Index 27.46 05/21/2024 2:19 PM [facility] Procedures * EKG 12-LEAD(Performed 05/21/2024) Performed for [...] Results * EKG 12-LEAD (05/21/2024 4:10 PM [facility]) Ventricular Rate 79 BPM [facility] Atrial Rate 79 BPM [facility] P-R Interval 152 ms [facility] QRS Duration ms 80 ms [facility] Q-T Interval ms 366 ms [facility] QTC Calculation (Bezet) 419 ms [facility] Calculated P [place] 22 degrees [facility] Calculated R [place] -3 degrees [facility] Calculated T [place] 30 degrees [facility] Interpretation EKG NORMAL SINUS RHYTHM NORMAL ECG NO PREVIOUS ECGS AVAILABLE Confirmed by PETER ROB, RILEY ([id number]) on 05/22/2024 4:19:01 PM [facility] MUSE 05/21/2024 4:10 PM [facility] 05/22/2024 4:19 PM [facility] Isaiah Swain MD ECG ORDERABLES [facility] MUSE * XR PELVIS 1 OR 2VW (05/21/2024 2:36 PM [facility]) Anatomical Region Laterality Modality Pelvis Digital Radiogra phy 05/21/2024 2:33 PM [facility] Impressions 05/22/2024 4:04 AM [facility] IMPRESSION: No acute fracture identified. Report dictated by Raheel Rowland MD, (academic vice president). Dusty Shaw MD have personally reviewed and interpreted this examination/study. > Interpreting Provider: Dusty Brar MD on 05/22/2024 4:04 AM Narrative 05/22/2024 4:04 AM [facility] PROCEDURE: XR PELVIS 1 OR 2VW, DATE/TIME OF EXAM: 05/21/2024 2:14 PM, LOCATION [facility] INDICATION: Trauma Fracture suspected COMPARISON: None. FINDINGS: No acute fracture is identified. The femoral heads appear well-seated within their respective acetabula. The pubic symphysis is intact. Bone density and texture are normal. Mild osteoarthritic changes of the SI joints. Procedure Note Dusty Brar MD - 05/22/2024 PROCEDURE: XR PELVIS 1 OR 2VW, DATE/TIME OF EXAM: 05/21/2024 2:14 PM, LOCATION [facility] INDICATION: Trauma Fracture suspected COMPARISON: None. FINDINGS: No acute fracture is identified. The femoral heads appear well-seated within their respective acetabula. The pubic symphysis is intact. Bone density and texture are normal. Mild osteoarthritic changes of the SI joints. IMPRESSION: No acute fracture identified. Report dictated by Raheel Rowland MD, MD (academic vice president). Dusty Shaw MD have personally reviewed and interpreted this examination/study. > Interpreting Provider: Dusty Brar MD on 05/22/2024 4:04 AM Jeremías Ramirez MD DIAGNOSTIC IMAGING O RDERABLES * XR CHEST 1VW PORTABLE (05/21/2024 2:35 PM [facility]) Anatomical Region Laterality Modality Chest Digital Radiogra phy 05/21/2024 2:22 PM [facility] Narrative 05/22/2024 4:04 AM [facility] PROCEDURE: XR CHEST 1VW PORTABLE, DATE/TIME OF EXAM: 05/21/2024 2:14 PM, LOCATION [facility] INDICATION: Trauma COMPARISON: None. TECHNIQUE: Frontal radiograph of the chest. FINDINGS/IMPRESSION: Lines/Tubes/Hardware: *Left chest wall cardiac device with leads superimposing the right atrium and right ventricle. *Endovascular coil superimposes the left midlung zone. Mild left basilar atelectasis. There is no focal consolidation, pleural effusion, or pneumothorax. The cardiomediastinal silhouette is normal. No acute osseous abnormality. Report dictated by Raheel Rowland MD, (Research Staff Member). Dusty Shaw MD have personally reviewed and interpreted this examination/study. > Interpreting Provider: Dutsy Brar MD on 05/22/2024 4:04 AM Procedure Note Dusty Brar MD - 05/22/2024 PROCEDURE: XR CHEST 1VW PORTABLE, DATE/TIME OF EXAM: 05/21/2024 2:14 PM, LOCATION [facility] INDICATION: Trauma COMPARISON: None. TECHNIQUE: Frontal radiograph of the chest. FINDINGS/IMPRESSION: Lines/Tubes/Hardware: *Left chest wall cardiac device with leads superimposing the rightatrium and right ventricle. *Endovascular coil superimposes the left midlung zone. Mild left basilar atelectasis. There is no focal consolidation, pleural effusion, or pneumothorax. The cardiomediastinal silhouette is normal.No acute osseous abnormality. Report dictated by Raheel Rowland MD, (Research Staff Member). Dusty Shaw MD have personally reviewed and interpreted this examination/study. > Interpreting Provider: Dusty Brar MD on 05/22/2024 4:04 AM Jeremías Ramirez MD DIAGNOSTIC IMAGING O RDERABLES * CT CHEST ABDOMEN PELVIS W CONT - Abdomen-pelvis trauma, blunt or penetrating (05/21/2024 2:29 PM [facility]) Anatomical Region Laterality Modality Chest, Abdomen, Pelvis Computed Tomography 05/21/2024 2:28 PM [facility] Impressions 05/21/2024 4:20 PM [facility] Impression: 1.A 6 mm subpleural pulmonary nodule [...] pelvis. > Dictated by Ana Zamudio MD, (academic vice president). I, Rui Smith MD have personally reviewed and interpreted this examination/study. > Interpreting Provider: Rui Smith MD on 05/21/2024 4:20 PM Narrative 05/21/2024 4:20 PM [facility] PROCEDURE: CT CHEST ABDOMEN PELVIS W CONT, DATE/TIME OF EXAM: 05/21/2024 2:18 PM, LOCATION [facility] INDICATION: Trauma ADDITIONAL CLINICAL INFORMATION: Ordering Provider [...] DATE/TIME OF EXAM: 05/21/2024 2:18 PM, LOCATION [facility] INDICATION: Trauma ADDITIONAL CLINICAL INFORMATION: Ordering Provider [...] orpelvis. > Dictated by Ana Zamudio MD, (academic vice president). I, Rui Smith MD have personally reviewed and interpreted this examination/study. > Interpreting Provider: Rui Smith MD on 05/21/2024 4:20 PM Jeremías Ramirez MD CT ORDERABLES * CT LUMBAR SPINE WO CONTRAST - T/L-spine trauma, Spine fracture (05/21/2024 2:29 PM [facility]) Anatomical Region Laterality Modality Spine Computed Tomogra phy 05/21/2024 2:37 PM [facility] Impressions 05/21/2024 3:10 PM [facility] IMPRESSION: 1. No evidence of acute fracture in the thoracic or lumbar spine. ILoi MD have personally reviewed and interpreted this examination/study. > Interpreting Provider: Loi Fernandez MD on 05/21/2024 3:10 PM Narrative 05/21/2024 3:10 PM [facility] PROCEDURE: CT LUMBAR SPINE WO CONTRAST, CT THORACIC SPINE WO CONTRAST, DATE/TIME OF EXAM: 05/21/2024 2:30 PM, LOCATION [facility] INDICATION: Trauma ADDITIONAL CLINICAL INFORMATION: Ordering Provider [...] DATE/TIME OF EXAM: 05/21/2024 2:30 PM, LOCATION [facility] INDICATION: Trauma ADDITIONAL CLINICAL INFORMATION: Ordering Provider [...] T/L-spine trauma, spine fracture (05/21/2024 2:29 PM [facility]) Anatomical Region Laterality Modality Spine Computed Tomogra phy 05/21/2024 2:37 PM [facility] Impressions 05/21/2024 3:10 PM [facility] IMPRESSION: 1. No evidence of acute fracture in the thoracic or lumbar spine. Loi Shaw MD have personally reviewed and interpreted this examination/study. > Interpreting Provider: Loi Fernandez MD on 05/21/2024 3:10 PM Narrative 05/21/2024 3:10 PM [facility] PROCEDURE: CT LUMBAR SPINE WO CONTRAST, CT THORACIC SPINE WO CONTRAST, DATE/TIME OF EXAM: 05/21/2024 2:30 PM, LOCATION [facility] INDICATION: Trauma ADDITIONAL CLINICAL INFORMATION: Ordering Provider [...] DATE/TIME OF EXAM: 05/21/2024 2:30 PM, LOCATION [facility] INDICATION: Trauma ADDITIONAL CLINICAL INFORMATION: Ordering Provider [...] C-Spine Trauma, Spine fracture (05/21/2024 2:29 PM [facility]) Anatomical Region Laterality Modality Spine Computed Tomogra phy 05/21/2024 3:00 PM [facility] Impressions 05/22/2024 8:46 AM [facility] IMPRESSION: 1. No evidence of acute fracture in the cervical spine. > Interpreting Provider: Loi Fernandez MD on 05/22/2024 8:46 AM Narrative 05/22/2024 8:46 AM [facility] PROCEDURE: CT CERVICAL SPINE WO CONTRAST, DATE/TIME OF EXAM: 05/21/2024 2:30 PM, LOCATION [facility] INDICATION: Trauma ADDITIONAL CLINICAL INFORMATION: Ordering Provider [...] DATE/TIME OF EXAM: 05/21/2024 2:30 PM, LOCATION [facility] INDICATION: Trauma ADDITIONAL CLINICAL INFORMATION: Ordering Provider [...] leak, mental status changes (05/21/2024 2:29 PM [facility]) Anatomical Region Laterality Modality Head Computed Tomogra phy 05/21/2024 2:26 PM [facility] Impressions 05/21/2024 3:00 PM [facility] IMPRESSION: 1.No acute intracranial hemorrhage, territorial infarct, or mass effect identified. This preliminary report was dictated by Td Flowers MD (DR/IR Resident). ILoi MD have personally reviewed and interpreted this examination/study. > Interpreting Provider: Loi Fernandez MD on 05/21/2024 3:00 PM Narrative 05/21/2024 3:00 PM [facility] PROCEDURE: CT HEAD WO CONTRAST, DATE/TIME OF EXAM: 05/21/2024 2:18 PM, LOCATION [facility] INDICATION: Trauma ADDITIONAL CLINICAL INFORMATION: Ordering Provider [...] DATE/TIME OF EXAM: 05/21/2024 2:18 PM, LOCATION [facility] INDICATION: Trauma ADDITIONAL CLINICAL INFORMATION: Ordering Provider [...] GLOBAL HEMOSTASIS W/ LYSIS (05/21/2024 2:16 PM [facility]) Citrated Kaolin R (Reaction Time) 2.3(L) 4.6 - 9.1 min 05/21/2024 3:20 PM [facility] Comment:CK R result below no rmal range. Consistent with hypercoagulable clotting factors. Citrated Kaolin LY30 (Lysis) 1.7 0.0 - 2.6 % 05/21/2024 3:20 PM [facility] Citrated Functional Fibrinogen MA (Max Amplitude) 18.9 15.0 - 32.0 mm 05/21/2024 3:20 PM [facility] Citrated RapidTEG MA (Max Amplitude) 60.6 52.0 - 70.0 mm 05/21/2024 3:20 PM [facility] Blood BLOOD SPECIMEN / Unknown Venipuncture / Unknown 05/21/2024 2:16 PM [facility] 05/21/2024 2:24 PM [facility] Jeremías Ramirez MD LAB - HEMATOLOGY ORD ERABLES [facility] [address] [place] [address], [facility] [phone] * (ABNORMAL) TEG 6S PLATELET MAPPING (05/21/2024 2:16 PM [facility]) TEGPLM (Max Amplitude) Koalin 60.3 53.0 - 68.0 mm 05/21/2024 3:26 PM [facility] TEGPLM (Max Amplitude) ACTF 12.0 2.0 - 19.0 mm 05/21/2024 3:26 PM [facility] TEGPLM (Max Amplitude) ADP 42.7(L) 45.0 - 69.0 mm 05/21/2024 3:26 PM [facility] Comment:ADP MA below normal range. Inhibition present. TEGPLM (Max Amplitude) AA 60.8 51.0 - 71.0 mm 05/21/2024 3:26 PM [facility] TEGPLM %Inhibition ADP 36.4(H) 0.0 - 17.0 % 05/21/2024 3:26 PM [facility] TEGPLM %Inhibition AA 0.0 0.0 - 11.0 % 05/21/2024 3:26 PM [facility] TEGPLM %Aggregation ADP 63.6(L) 83.0 - 100.0 % 05/21/2024 3:26 PM [facility] TEGPLM % Aggregation AA 100.0 89.0 - 100.0 % 05/21/2024 3:26 PM [facility] Blood BLOOD SPECIMEN / Unknown Venipuncture / Unknown 05/21/2024 2:16 PM [facility] 05/21/2024 2:24 PM [facility] Jeremías Ramirez MD LAB - HEMATOLOGY ORD ERABLES [facility] [address] [place] [address], [facility] [phone] * PTT [facility] (05/21/2024 2:16 PM [facility]) APTT 23.2 23.0 - 38.4 Seconds 05/21/2024 2:51 PM [facility] Comment:Suggested therapeuti c range for full dose I.V. unfractionated heparin therapy for venous thromboembolism is 71 to 109 seconds. Blood BLOOD SPECIMEN / Unknown Venipuncture / Unknown 05/21/2024 2:16 PM [facility] 05/21/2024 2:24 PM [facility] Jeremías Ramirez MD LAB - COAGULATION OR DERABLES Performing Organization Address [facility]/ZIP Co de Phone Number [address] [address], [facility] [phone] * PT-INR [facility] (05/21/2024 2:16 PM [facility]) Pathologist [facility] PT 13.2 12.1 - 14.8 Seconds 05/21/2024 2:51 PM [facility] INR 1.0 See Comment 05/21/2024 2:51 PM [facility] Comment:The suggested therap eutic range for standard coumadin (warfarin) therapy is an INR of 2.0-3.0. For high-risk patients (Mechanical Mitral Valve Prosthesis, etc.), the suggested prophylactic therapeutic range is an INR of 2.5-3.5. Blood BLOOD SPECIMEN / Unknown Venipuncture / Unknown 05/21/2024 2:16 PM [facility] 05/21/2024 2:24 PM [facility] Jeremías Ramirez MD LAB - COAGULATION OR DERABLES Performing Organization Address [facility] Co de Phone Number [address] [address], [facility] [phone] * (ABNORMAL) CBC W AUTO DIFFERENTIAL (05/21/2024 2:16 PM [facility]) Pathologist [facility] WBC 8.5 4.0 - 10.7 x10E9/L 05/21/2024 2:31 PM [facility] RBC Count 4.42 3.90 - 5.20 x10E12/L 05/21/2024 2:31 PM [facility] Hemoglobin 14.3 11.9 - 15.8 g/dL 05/21/2024 2:31 PM [facility] Hematocrit 41.8 34.8 - 46.1 % 05/21/2024 2:31 PM [facility] MCV 94.6 80.0 - 98.0 fL 05/21/2024 2:31 PM [facility] MCH 32.4 26.7 - 33.6 pg 05/21/2024 2:31 PM [facility] 34.[facility] 31.7 - 36.3 g/dL 05/21/2024 2:31 PM [facility] RDW-CV 12.4 11.3 - 14.8 % 05/21/2024 2:31 PM [facility] Platelet Count 181 150 - 420 x10E9/L 05/21/2024 2:31 PM [facility] MPV 10.2 7.8 - 11.4 fL 05/21/2024 2:31 PM [facility] Neutrophil % 76.9(H) 41.0 - 74.0 % 05/21/2024 2:31 PM [facility] Lymphocyte % 12.7(L) 17.0 - 47.0 % 05/21/2024 2:31 PM [facility] Monocyte % 8.6 3.0 - 11.0 % 05/21/2024 2:31 PM [facility] Eosinophil % 1.2 0.0 - 7.0 % 05/21/2024 2:31 PM [facility] Basophil % 0.2 0.0 - 1.6 % 05/21/2024 2:31 PM [facility] Immature Granulocytes % 0.4 0.0 - 1.0 % 05/21/2024 2:31 PM [facility] Neutrophil Absolute 6.57 1.60 - 7.50 x10E9/L 05/21/2024 2:31 PM [facility] Lymphocyte Absolute 1.08 1.00 - 4.40 x10E9/L 05/21/2024 2:31 PM [facility] Monocyte Absolute 0.73 0.15 - 1.00 x10E9/L 05/21/2024 2:31 PM [facility] Eosinophil Absolute 0.10 0.00 - 0.60 x10E9/L 05/21/2024 2:31 PM [facility] Basophil Absolute 0.02 0.00 - 0.13 x10E9/L 05/21/2024 2:31 PM [facility] Blood BLOOD SPECIMEN / Unknown Venipuncture / Unknown 05/21/2024 2:16 PM [facility] 05/21/2024 2:23 PM [facility] Jeremías Ramirez MD LAB - HEMATOLOGY ORD ERABLES [facility] [address] [place] [address], [facility] [phone] * BASIC METABOLIC PANEL (CALCIUM TOTAL) (05/21/2024 2:16 PM [facility]) BUN 12 7 - 26 mg/dL 05/21/2024 2:54 PM [facility] Creatinine 0.74 0.56 - 0.96 mg/dL 05/21/2024 2:54 PM [facility] Sodium 141 136 - 145 mmol/L 05/21/2024 2:54 PM [facility] Potassium 3.7 3.5 - 4.5 mmol/L 05/21/2024 2:54 PM [facility] Chloride 107 98 - 107 mmol/L 05/21/2024 2:54 PM [facility] CO2 25 22 - 29 mmol/L 05/21/2024 2:54 PM [facility] Glucose 95 70 - 99 mg/dL 05/21/2024 2:54 PM [facility] Calcium 9.7 8.4 - 10.2 mg/dL 05/21/2024 2:54 PM [facility] Anion Gap 9 6 - 16 05/21/2024 2:54 PM [facility] BUN/Creatinine Ratio 16 7 - 23 05/21/2024 2:54 PM [facility] Osmolality Calculated 292 275 - 295 mOsm/kg 05/21/2024 2:54 PM [facility] eGFR by CKD-EPI >90 >=90 mL/min/1.7 3 m2 05/21/2024 2:54 PM [facility] Blood BLOOD SPECIMEN / Unknown Venipuncture / Unknown 05/21/2024 2:16 PM [facility] 05/21/2024 2:24 PM [facility] Jeremías Ramirez MD LAB - CHEMISTRY PRADEEP RAMIREZ [facility] [address] [place] [address] [phone] * HCG BETA BLOOD QUANTITATIVE (05/21/2024 2:16 PM [facility]) [facility] Beta-hCG Total Quantitative <3 mIU/mL 05/21/2024 2:59 PM [facility] Comment: HCG Numeric Result Interpretation: Non- Females: [...] Unknown Venipuncture / Unknown 05/21/2024 2:16 PM [facility] 05/21/2024 2:24 PM [facility] Jeremías Ramirez MD LAB - CHEMISTRY PRADEEP RAMIREZ Performing Organization Address City/[facility]/ZIP Co de Phone Number [address] [address], [facility] [phone] * CK BLOOD (05/21/2024 2:16 PM [facility]) [facility] CK Total 113 30 - 200 U/L 05/21/2024 2:54 PM [facility] Blood BLOOD SPECIMEN / Unknown Venipuncture / Unknown 05/21/2024 2:16 PM [facility] 05/21/2024 2:24 PM [facility] Jeremías Ramirez MD LAB - CHEMISTRY PRADEEP RAMIREZ [address] [address], [facility] [phone] * ALCOHOL ETHYL BLOOD (05/21/2024 2:16 PM [facility]) [facility] Ethanol (mg/dL) <10 <10 mg/dL 2:54 PM [facility] Ethanol Calculated (g/dL) <0.010 <=0.010 g/dL 05/21/2024 2:54 PM [facility] Blood BLOOD SPECIMEN / Unknown Venipuncture / Unknown 05/21/2024 2:16 PM [facility] 05/21/2024 2:24 PM [facility] Narrative [facility] - 05/21/2024 2:54 PM [facility] Ethanol Interp <10: None Detected. Depression of BUSINESS BANKING RELATIONSHIP MANAGER: >100 mg/dl Potentially Critical: >250 mg/dl [...] Ramirez MD LAB - CHEMISTRY PRADEEP RAMIREZ [facility] Organization Address City/State/ZIP Co de Phone Number [facility] [address] [place] [address], [facility] [phone] Care Teams Sawdust Machine Operator Relationship Specialty Start Date End Date Robert Bernard MD [address] [place] [phone] PCP - General Family Medicine 05/21/24
--- OUTSIDE RECORDS SUMMARY | 2024-06-26 13:38 | XMS_ITS | Encounter Summary ---
Author Organization [facility] [employer] [facility] Address [address] [place] [address] Phone Care Team Providers Care Ferruler Name Role Phone Robert Bernard MD Primary Care Provider Mark Mccurdy MD Unavailable [phone] Encounter Details Date Type Department Care Team (Late st Contact Info) Description 04/14/2015 Orders Only [facility] IM [facility] CLINCONV Provider, MD Toney [address] [place] [id number] Social History Tobacco Use Types Packs/Day Years Used Date Smoking Tobacco: Never Assessed Comments Unknown Sex and Gender Information Value Date Recorded Sex Assigned at Not on file 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
--- OUTSIDE RECORDS SUMMARY | 2024-06-26 13:38 | XMS_ITS | Encounter Summary ---
Author Organization [facility] Address [address] [place] [address] Phone Care Team Providers Care Molder Fitting Name Role Phone Robert Bernard MD Primary Care Provider Mark Mccurdy MD Unavailable [phone] Encounter Details Date Type Department Care Team (Late st Contact Info) Description 07/28/2014 Orders Only [facility]IN[facility] Provider, MD Toney [address] [place] [address] Social History Tobacco Use Types Packs/Day Years Used Date Smoking Tobacco: Never Assessed Comments Unknown Sex and Gender Information Value Date Recorded Sex Assigned at Not on file 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
--- OUTSIDE RECORDS SUMMARY | 2024-06-26 13:38 | XMS_ITS | Clinical Summary ---
Author Organization [facility] Address [address] [place] [address] Care Team Providers Care Pharmacy Order Entry Technician Name Role Phone Robert Bernard MD Primary Care Provider Mark Mccurdy MD Unavailable [phone] Allergies No known active allergies Medications [...] Department Care Team Description 05/26/2024 Orders Only [facility] Cardiology [address] [place] [address] Hema Norton MD PhD 05/26/2024 Telephone [place] [id number] [facility] 8th [place] [address] [place] [address] Hema Norton MD PhD 05/23/2024 Telephone [facility] Cardiology Count includes the [facility] 8th [place] [address] [place] [address] Hema Norton MD PhD from Last 3 Months Surgical History Surgery Date Site/Laterality Comments CARDIAC PACEMAKER PLACEMENT Pacemaker Placement - Heart pacer placed 07/2013. (Added by TW Conv) HYSTERECTOMY Medical History Medical History Date [...] on file Legal Sex Female 5:12 AM ATTRACTION WORKER Gender Identity Not on file Sexual Orientation Not on file Obstetrics History Last Filed Vital Signs Vital Sign Reading Time Taken Comments Blood Pressure 115/79 02/26/2023 8:44 AM CDT Pulse 83 02/26/2023 8:44 AM CDT Temperature 36.5 C (97.7 F) 03/30/2021 10:39 AM ATTRACTION WORKER Respiratory Rate 16 03/30/2021 10:39 AM ATTRACTION WORKER Oxygen Saturation 99% 02/26/2023 8:44 AM CDT [...] Chronic Care Management No change(03/30 10:46 AM ATTRACTION WORKER) No Gillian Vela, LEEANNA Note: Problem: Chronic Pain Goals: 1. Minimize further functional decline 2. Maximize quality of life 3. Control pain Strategies: - Activity/exercise program recommendation - Conservative stepwise pain medicine strategy with multi-disciplinary approach - Recommend healthy lifestyle strategies and compensatory methods as needed Medical Devices Implanted Type Area Supervisor Agricultural Education Device Identifier Shelf Expiration Date Model / Serial / Lot Pacemaker Chest Procedures Procedure Name Priority Date/Time Associated Diagnosis Comments DEVICE CHECK - REMOTE Routine 05/26/2024 9:30 PM ATTRACTION WORKER from Last 3 Months Results * DEVICE CHECK - REMOTE (05/26/2024 9:30 PM ATTRACTION WORKER) Anatomical Region Laterality Modality Other 05/26/2024 9:30 PM ATTRACTION WORKER Narrative 06/01/2024 9:32 AM ATTRACTION WORKER Interpretation Summary: Battery and Leads (BL) Normal parameters noted on battery and lead(s) --- 1.5 yrs (1 to 1.5 yrs) remaining longevity (implanted 2014). Lead impedance, threshold, and RA sensing trends stable and appropriate. No short V-V intervals. R wave out of range --- R wave 4.5 mV. Trend is stable. RV sensitivity is programmed 2.0 mV. Presenting Rhythm (FL) Atrial Sensing-Ventricular Sensing (-VS) --- /VS (SR/ST) 94 to 105 bpm. Arrhythmic events (AE) Atrial High-Rate Episode(s) identified --- Since 03/10/24: 2 SVT/ST detections, max 38 sec, with [...] RV sensitivityis programmed 2.0 mV. Presenting Rhythm (FL) Atrial Sensing-Ventricular Sensing (-VS) --- /VS (SR/ST) [...] PhD CV CARDIAC SERVICES PROCEDURES Final Result from Last 3 Months Insurance [employer] MEDICARE [facility] Care Teams Pharmacy Order Entry Technician Relationship Specialty Start Date End Date Robert Bernard MD PCP - General 10/06/16 Mark Mccurdy MD [address] [place] [address] Referring Physician Cardiology 01/21/20
--- OUTSIDE RECORDS SUMMARY | 2024-06-26 13:38 | XMS_ITS | Encounter Summary ---
Author Organization [facility] Address [address] [place] [address] Phone Care Team Providers Care Golf Ball Cover Treater Name Role Phone Robert Bernard MD Primary Care Provider Mark Mccurdy MD Unavailable [phone] Encounter Details Date Type Department Care Team (Late st Contact Info) Description 10/19/2017 Telephone [facility] Cardiology 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
--- OUTSIDE RECORDS SUMMARY | 2024-06-26 13:38 | XMS_ITS | Encounter Summary ---
Author Organization [facility] Address [address] [place] [address] Phone Care Team Providers Care Gis Analyst Name Role Phone Robert Bernard MD Primary Care Provider [phone] Mark Mccurdy MD Unavailable [phone] Encounter Details Date Type Department Care Team (Late st Contact Info) Description 09/26/2014 Orders Only [facility] ProviderToney MD [address] [place], [place] [phone] Social History Tobacco Use Types Packs/Day Years Used Date Smoking Tobacco: Never Assessed Comments Unknown Sex and Gender Information Value Date Recorded Sex Assigned at Not on file 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
--- OUTSIDE RECORDS SUMMARY | 2024-06-26 13:38 | XMS_ITS | Encounter Summary ---
Author Organization [facility] Address [address] [place] [address] Phone Care Team Providers Care Mill Control Operator Name Role Phone Robert Bernard MD Primary Care Provider Mark Mccurdy MD Unavailable [phone] Encounter Details Date Type Department Care Team (Late st Contact Info) Description 09/05/2014 Orders Only [facility] ProviderToney MD [address] [place], [place] [phone] Social History Tobacco Use Types Packs/Day Years Used Date Smoking Tobacco: Never Assessed Comments Unknown Sex and Gender Information Value Date Recorded Sex Assigned at Not on file 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
--- OUTSIDE RECORDS SUMMARY | 2024-06-26 13:38 | XMS_ITS | Encounter Summary ---
Author Organization [facility] Address [address] [place] [address] Phone Care Team Providers Care Duplicating Machine Servicer Name Role Phone Robert Bernard MD Primary Care Provider [phone] Mark Mccurdy MD Unavailable [phone] Encounter Details Date Type Department Care Team (Late st Contact Info) Description 06/06/2015 Orders Only [facility]IN[facility] ProviderToney MD [address] [place], [place] [phone] Social History Tobacco Use Types Packs/Day Years Used Date Smoking Tobacco: Never Assessed Comments Unknown Sex and Gender Information Value Date Recorded Sex Assigned at Not on file 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
--- OUTSIDE RECORDS SUMMARY | 2024-06-26 13:38 | XMS_ITS | Encounter Summary ---
Author Organization [facility] Address [address] [place] [address] Phone Care Team Providers Care Family Service Caseworker Name Role Phone Robert Bernard MD Primary Care Provider Mark Mccurdy MD Unavailable [phone] Encounter Details Date Type Department Care Team (Late st Contact Info) Description 07/30/2014 Orders Only [facility]IN[facility] Provider, MD Toney [address] [place] [address] Social History Tobacco Use Types Packs/Day Years Used Date Smoking Tobacco: Never Assessed Comments Unknown Sex and Gender Information Value Date Recorded Sex Assigned at Not on file 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 Historical Provider [facility] CARDIAC SERVICES HUNTER COCHRNA Final Result documented in this encounter Visit Diagnoses Not on filedocumented in this encounter Care Teams Family Service Caseworker Relationship Specialty Start Date End Date Robert Bernard MD PCP - General 10/06/16 Mark Mccurdy MD [address] [place] [address] Referring Physician Cardiology 01/21/20 documented as of this encounter
--- OUTSIDE RECORDS SUMMARY | 2024-06-26 13:38 | XMS_ITS | Clinical Summary ---
Author Organization [facility] Address [address] [place] [address] Care Team Providers Care Garage Construction Equipment Mechanic Name Role Phone Robert Bernard MD Primary [...] Comments Blood Pressure 114/82 06/29/2014 2:06 PM MEDICAL DIRECTOR OCCUPATIONAL HEALTH Pulse 91 06/29/2014 2:06 PM MEDICAL DIRECTOR OCCUPATIONAL HEALTH Temperature - - Respiratory Rate 18 06/29/2014 2:06 PM MEDICAL DIRECTOR OCCUPATIONAL HEALTH Oxygen Saturation - - Inhaled Oxygen Concentration - - Weight 64.4 kg (142 lb) 06/29/2014 2:06 PM MEDICAL DIRECTOR OCCUPATIONAL HEALTH Height 167.6 cm (5' 6 ) 06/29/2014 2:06 PM MEDICAL DIRECTOR OCCUPATIONAL HEALTH Body Mass Index 22.92 06/29/2014 2:06 PM MEDICAL DIRECTOR OCCUPATIONAL HEALTH Plan of Treatment Health Maintenance Due Date [...] Breast Right Mammography, Rad iographic Imaging 12/20/2022 3:18 PM CDT Narrative 12/20/2022 3:25 PM CDT Examination: Digital right diagnostic mammogram with CAD. [id number] Clinical history: Follow-up, abnormal screening mammogram. History of breast cysts. Comparison: 10/31/2022. Technique: True lateral and spot compression CC and MLO right digital mammograms. The exam was interpreted with the use of a computer-aided detection (CAD) system. Additional 3-D Tomosynthesis images were acquired. Tissue density: The breast tissue is heterogeneously dense. Findings: The [...] in greatest dimension. These are mammographically occult. [place] appearing tissue architecture is otherwise demonstrated. No [...] seem adequate. Recommendation: 1: Routine screening mammogram Bilateral in October 2023 Overall assessment: ACR BI-RADS Category 2 - Benign. Return for Routine Follow-Up: Yes Ordered By: RAHEEL YEAGER Interpreted By: Kevin Cabrera MD, 12/20/2022 3:18 PM Raheel Yeager ID [id number] Final Result from Last 3 Months or Most Recently Relevant to Health Maintenance Insurance MEDICARE MEDICAID Care Teams Garage Construction Equipment Mechanic Relationship Specialty Start Date End Date Robert Bernard MD [address] [place] [phone] PCP - General FAMILY PRACTICE 07/01/19
--- OUTSIDE RECORDS SUMMARY | 2024-06-26 13:38 | XMS_ITS | Encounter Summary ---
Author Organization [facility] Address [address] [place] [address] Phone Care Team Providers Care Nondestructive Tester Name Role Phone Robert Bernard MD Primary Care Provider [phone] Mark Mccurdy MD Unavailable [phone] Encounter Details Date Type Department Care Team (Late st Contact Info) Description 02/05/2015 Orders Only [facility] CLINCON[facility] ProviderToney MD [address] [place], [place] [phone] Social History Tobacco Use Types Packs/Day Years Used Date Smoking Tobacco: Never Assessed Comments Unknown Sex and Gender Information Value Date Recorded Sex Assigned at Not on file 

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
--- OUTSIDE RECORDS SUMMARY | 2024-06-26 13:38 | XMS_ITS | Referral Summary ---
Author Organization [facility] Address [address] [place] [address] Care Team Providers Care Superintendent Board Mill Name Role Phone Robert Bernard MD Primary Care Provider Mark Mccurdy MD Unavailable [phone] Encounters Date Type Department Care Team Description 05/26/2024 Orders Only [facility] Cardiology [address] [place] [phone] Hema Norton MD PhD 05/26/2024 Telephone [facility] Cardiology [address] [facility] Advanced Medicine 8th [place] [address] [place] [phone] Hema Norton MD PhD 05/23/2024 Telephone [facility] Cardiology [address] [facility] Advanced Medicine 8th [place] [address] [place] [phone] Hema Norton MD PhD from Last 3 Months Allergies No known [...] on file Legal Sex Female 5:12 AM OIL CHANGE TECHNICIAN Gender Identity Not on file Sexual Orientation Not on file Last Filed Vital Signs Vital Sign Reading Time Taken Comments Blood Pressure 115/79 02/26/2023 8:44 AM CDT Pulse 83 02/26/2023 8:44 AM CDT Temperature 36.5 C (97.7 F) 03/30/2021 10:39 AM OIL CHANGE TECHNICIAN Respiratory Rate 16 03/30/2021 10:39 AM OIL CHANGE TECHNICIAN Oxygen Saturation 99% 02/26/2023 8:44 AM CDT [...] Chronic Care Management No change(03/30 10:46 AM OIL CHANGE TECHNICIAN) No Gillian Vela, LEEANNA Note: Problem: Chronic Pain Goals: 1. Minimize further functional decline 2. Maximize quality of life 3. Control pain Strategies: - Activity/exercise program recommendation - Conservative stepwise pain medicine strategy with multi-disciplinary approach - Recommend healthy lifestyle strategies and compensatory methods as needed Medical Devices Implanted Type Area Office Supervisor Device Identifier Shelf Expiration Date Model / Serial / Lot Pacemaker Chest Procedures Procedure Name Priority Date/Time Associated Diagnosis Comments DEVICE CHECK - REMOTE Routine 05/26/2024 9:30 PM OIL CHANGE TECHNICIAN from Last 3 Months Results * DEVICE CHECK - REMOTE (05/26/2024 9:30 PM OIL CHANGE TECHNICIAN) Anatomical Region Laterality Modality Other 05/26/2024 9:30 PM OIL CHANGE TECHNICIAN Narrative 06/01/2024 9:32 AM OIL CHANGE TECHNICIAN Interpretation Summary: Battery and Leads (BL) Normal parameters noted on battery and lead(s) --- 1.5 yrs (1 to 1.5 yrs) remaining longevity (implanted 2014). Lead impedance, threshold, and RA sensing trends stable and appropriate. No short V-V intervals. R wave out of range --- R wave 4.5 mV. Trend is stable. RV sensitivity is programmed 2.0 mV. Presenting Rhythm (CT) Atrial Sensing-Ventricular Sensing (-VS) --- /VS (SR/ST) [...] RV sensitivityis programmed 2.0 mV. Presenting Rhythm (CT) Atrial Sensing-Ventricular Sensing (-VS) --- /VS (SR/ST) [...] Final Result from Last 3 Months Insurance [facility] MEDICARE [facility] Care Teams Superintendent Board Mill Relationship Specialty Start Date End Date Robert Bernard MD PCP - General 10/06/16 Mark Mccurdy MD [address] [place] [address] Referring Physician Cardiology 01/21/20
--- OUTSIDE RECORDS SUMMARY | 2024-06-26 13:38 | XMS_ITS | Encounter Summary ---
Author Organization [facility] Healthcare Address [address] [place] [address] Care Team Providers Care Director Of Professional Services Name Role Phone Robert Bernard MD Primary Care Provider Mark Mccurdy MD Unavailable [phone] Reason for Visit * Reason Onset Date Comments Med Refill 10/27/2019 Encounter Details Date Type Department Care Team (Late st Contact Info) Description 10/27/[address] [facility] [address] [facility] [address] [place] [address] Olamide Pruitt MD [address] [facility] [address] [place] [address] Med Refill Social History Tobacco Use Types [...] on file Legal Sex Female 5:12 AM EXTRAS CASTING DIRECTOR Gender Identity Not on file Sexual Orientation Not on file documented as of this encounter Plan of Treatment Not on file documented as of this encounter Goals Goal Patient Goal Type Associated Problems Recent Progress Patient-Stated? Author CCM Chronic Pain Care Plan Chronic Care Management No change(03/30 10:46 AM EXTRAS CASTING DIRECTOR) No Gillian Vela, RN Note: Problem: Chronic Pain Goals: 1. Minimize further functional decline 2. Maximize quality of life 3. Control pain Strategies: - Activity/exercise program recommendation - Conservative stepwise pain medicine strategy with multi-disciplinary approach - Recommend healthy lifestyle strategies and compensatory methods as needed documented as of this encounter Visit Diagnoses Not on filedocumented in this encounter Care Teams Director Of Professional Services Relationship Specialty Start Date End Date Robert Bernard MD PCP - General 10/06/16 Mark Mccurdy MD [address] [place] [address] Referring Physician Cardiology 01/21/20 documented as of this encounter
== END 2024-06-26 13:34 | disposition home or self-care (01) ==
PROVIDERS: PCP Family Medicine; Visit Provider Family Medicine
DX: Z12.31 Encounter for screening mammogram for malignant neoplasm of breast (principal); R92.8 Other abnormal and inconclusive findings on diagnostic imaging of breast
CPT/HCPCS: 77063; 77067

== ENCOUNTER 2024-07-21 08:52 | Outpatient (CLI) | payer MEDICARE, SELFPAY ==
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
--- OUTSIDE RECORDS SUMMARY | 2024-07-21 09:45 | XMS_ITS | Encounter Summary ---
Author Organization [facility] Address [address] [place] [address] Phone Care Team Providers Care Lab Aid Name Role Phone Robert Bernard MD Primary Care Provider Mark Mccurdy MD Unavailable [phone] Encounter Details Date Type Department Care Team (Late st Contact Info) Description 11/05/2016 Orders Only [facility] ProviderToney MD [address] [place], [place] [id number] Social History Tobacco Use Types Packs/Day Years Used Date Smoking Tobacco: Never Assessed Comments Unknown Sex and Gender Information Value Date Recorded Sex Assigned at Not on file 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
--- OUTSIDE RECORDS SUMMARY | 2024-07-21 09:45 | XMS_ITS | Patient Health Summary ---
Author Organization [facility] Address [address] [place] [address] Care Team Providers Care Tank Shop Supervisor Name Role Phone Robert Bernard MD Primary Care Provider [phone] Note from [facility],non-owned Affiliates and Associated Physician Practices is amultiple site organization consisting of ambulatory clinics and hospital sitesin [place], [place], [place] and [place]. This disclosure is being madepursuant to the Care Everywhere program and may not contain all information available regarding this patient. Last updated 18.[facility] [employer] Allergies No known active allergies Medications * Be aware that medications may not be up to date on this document. Alwaysverify current medications with the patient. * methocarbamol (Robaxin) 750 MG tablet(Started 05/21/2024) Take 1 (one) tablet by mouth every 6 hours as needed for Muscle Spasms * HYDROcodone-acetaminophen ([place]) 5-325 MG tablet(Started 05/21/2024) Take 1 (one) [...] Comments Blood Pressure 138/82 05/21/2024 4:51 PM [facility] Pulse 89 05/21/2024 4:51 PM [facility] Temperature 36.3 C (97.4 F) 05/21/2024 4:51 PM [facility] Respiratory Rate 20 05/21/2024 4:51 PM [facility] Oxygen Saturation 97% 05/21/2024 4:51 PM [facility] Inhaled Oxygen Concentration - - Weight 72.6 kg (160 lb) 05/21/2024 2:19 PM [facility] Height 162.6 cm (5' 4 ) 05/21/2024 2:19 PM [facility] Body Mass Index 27.46 05/21/2024 2:19 PM [facility] Procedures * EKG 12-LEAD(Performed 05/21/2024) Performed for [...] Results * EKG 12-LEAD (05/21/2024 4:10 PM [facility]) Ventricular Rate 79 BPM [facility] Atrial Rate 79 BPM [facility] P-R Interval 152 ms [facility] QRS Duration ms 80 ms [facility] Q-T Interval ms 366 ms [facility] QTC Calculation (Bezet) 419 ms [facility] Calculated P [place] 22 degrees [facility] Calculated R [place] -3 degrees [facility] Calculated T [place] 30 degrees [facility] Interpretation EKG NORMAL SINUS RHYTHM NORMAL ECG NO PREVIOUS ECGS AVAILABLE Confirmed by PETER ROB, RILEY ([id number]) on 05/22/2024 4:19:01 PM [facility] MUSE 05/21/2024 4:10 PM [facility] 05/22/2024 4:19 PM [facility] Isaiah Swain MD ECG ORDERABLES [facility] MUSE * XR PELVIS 1 OR 2VW (05/21/2024 2:36 PM [facility]) Anatomical Region Laterality Modality Pelvis Digital Radiogra phy 05/21/2024 2:33 PM [facility] Impressions 05/22/2024 4:04 AM [facility] IMPRESSION: No acute fracture identified. Report dictated by Raheel Rowland MD, (information services vice president). Dusty Shaw MD have personally reviewed and interpreted this examination/study. > Interpreting Provider: Dusty Brar MD on 05/22/2024 4:04 AM Narrative 05/22/2024 4:04 AM [facility] PROCEDURE: XR PELVIS 1 OR 2VW, DATE/TIME OF EXAM: 05/21/2024 2:14 PM, LOCATION [facility] INDICATION: Trauma Fracture suspected COMPARISON: None. FINDINGS: No acute fracture is identified. The femoral heads appear well-seated within their respective acetabula. The pubic symphysis is intact. Bone density and texture are normal. Mild osteoarthritic changes of the SI joints. Procedure Note Dusty Brar MD - 05/22/2024 PROCEDURE: XR PELVIS 1 OR 2VW, DATE/TIME OF EXAM: 05/21/2024 2:14 PM, LOCATION [facility] INDICATION: Trauma Fracture suspected COMPARISON: None. FINDINGS: No acute fracture is identified. The femoral heads appear well-seated within their respective acetabula. The pubic symphysis is intact. Bone density and texture are normal. Mild osteoarthritic changes of the SI joints. IMPRESSION: No acute fracture identified. Report dictated by Raheel Rowland MD, MD (information services vice president). Dusty Shaw MD have personally reviewed and interpreted this examination/study. > Interpreting Provider: Dusty Brar MD on 05/22/2024 4:04 AM Jeremías Ramirez MD DIAGNOSTIC IMAGING O RDERABLES * XR CHEST 1VW PORTABLE (05/21/2024 2:35 PM [facility]) Anatomical Region Laterality Modality Chest Digital Radiogra phy 05/21/2024 2:22 PM [facility] Narrative 05/22/2024 4:04 AM [facility] PROCEDURE: XR CHEST 1VW PORTABLE, DATE/TIME OF EXAM: 05/21/2024 2:14 PM, LOCATION [facility] INDICATION: Trauma COMPARISON: None. TECHNIQUE: Frontal radiograph of the chest. FINDINGS/IMPRESSION: Lines/Tubes/Hardware: *Left chest wall cardiac device with leads superimposing the right atrium and right ventricle. *Endovascular coil superimposes the left midlung zone. Mild left basilar atelectasis. There is no focal consolidation, pleural effusion, or pneumothorax. The cardiomediastinal silhouette is normal. No acute osseous abnormality. Report dictated by Raheel Rowland MD, (Drafter Topographical). Dusty Shaw MD have personally reviewed and interpreted this examination/study. > Interpreting Provider: Dusty Brar MD on 05/22/2024 4:04 AM Procedure Note Dusty Brar MD - 05/22/2024 PROCEDURE: XR CHEST 1VW PORTABLE, DATE/TIME OF EXAM: 05/21/2024 2:14 PM, LOCATION [facility] INDICATION: Trauma COMPARISON: None. TECHNIQUE: Frontal radiograph of the chest. FINDINGS/IMPRESSION: Lines/Tubes/Hardware: *Left chest wall cardiac device with leads superimposing the rightatrium and right ventricle. *Endovascular coil superimposes the left midlung zone. Mild left basilar atelectasis. There is no focal consolidation, pleural effusion, or pneumothorax. The cardiomediastinal silhouette is normal.No acute osseous abnormality. Report dictated by Raheel Rowland MD, (Drafter Topographical). Dusty Shaw MD have personally reviewed and interpreted this examination/study. > Interpreting Provider: Dusty Brar MD on 05/22/2024 4:04 AM Jeremías Ramirez MD DIAGNOSTIC IMAGING O RDERABLES * CT CHEST ABDOMEN PELVIS W CONT - Abdomen-pelvis trauma, blunt or penetrating (05/21/2024 2:29 PM [facility] [employer] [facility]) Anatomical Region Laterality Modality Chest, Abdomen, Pelvis Computed Tomography 05/21/2024 2:28 PM [facility] Impressions 05/21/2024 4:20 PM [facility] Impression: 1.A 6 mm subpleural pulmonary nodule [...] pelvis. > Dictated by Ana Zamudio MD, (information services vice president). I, Rui Smith MD have personally reviewed and interpreted this examination/study. > Interpreting Provider: Rui Smith MD on 05/21/2024 4:20 PM Narrative 05/21/2024 4:20 PM [facility] PROCEDURE: CT CHEST ABDOMEN PELVIS W CONT, DATE/TIME OF EXAM: 05/21/2024 2:18 PM, LOCATION [facility] INDICATION: Trauma ADDITIONAL CLINICAL INFORMATION: Ordering Provider [...] DATE/TIME OF EXAM: 05/21/2024 2:18 PM, LOCATION [facility] INDICATION: Trauma ADDITIONAL CLINICAL INFORMATION: Ordering Provider [...] orpelvis. > Dictated by Ana Zamudio MD, (information services vice president). I, Rui Smith MD have personally reviewed and interpreted this examination/study. > Interpreting Provider: Rui Smith MD on 05/21/2024 4:20 PM Jeremías Ramirez MD CT ORDERABLES * CT LUMBAR SPINE WO CONTRAST - T/L-spine trauma, Spine fracture (05/21/2024 2:29 PM [facility] [employer] [facility]) Anatomical Region Laterality Modality Spine Computed Tomogra phy 05/21/2024 2:37 PM [facility] Impressions 05/21/2024 3:10 PM [facility] IMPRESSION: 1. No evidence of acute fracture in the thoracic or lumbar spine. ILoi MD have personally reviewed and interpreted this examination/study. > Interpreting Provider: Loi Fernandez MD on 05/21/2024 3:10 PM Narrative 05/21/2024 3:10 PM [facility] PROCEDURE: CT LUMBAR SPINE WO CONTRAST, CT THORACIC SPINE WO CONTRAST, DATE/TIME OF EXAM: 05/21/2024 2:30 PM, LOCATION [facility] INDICATION: Trauma ADDITIONAL CLINICAL INFORMATION: Ordering Provider [...] DATE/TIME OF EXAM: 05/21/2024 2:30 PM, LOCATION [facility] INDICATION: Trauma ADDITIONAL CLINICAL INFORMATION: Ordering Provider [...] T/L-spine trauma, spine fracture (05/21/2024 2:29 PM [facility] [facility]) Anatomical Region Laterality Modality Spine Computed Tomogra phy 05/21/2024 2:37 PM [facility] Impressions 05/21/2024 3:10 PM [facility] [facility] IMPRESSION: 1. No evidence of acute fracture in the thoracic or lumbar spine. Loi Shaw MD have personally reviewed and interpreted this examination/study. > Interpreting Provider: Loi Fernandez MD on 05/21/2024 3:10 PM Narrative 05/21/2024 3:10 PM [facility] PROCEDURE: CT LUMBAR SPINE WO CONTRAST, CT THORACIC SPINE WO CONTRAST, DATE/TIME OF EXAM: 05/21/2024 2:30 PM, LOCATION [facility] INDICATION: Trauma ADDITIONAL CLINICAL INFORMATION: Ordering Provider [...] DATE/TIME OF EXAM: 05/21/2024 2:30 PM, LOCATION [facility] INDICATION: Trauma ADDITIONAL CLINICAL INFORMATION: Ordering Provider [...] C-Spine Trauma, Spine fracture (05/21/2024 2:29 PM [facility] [facility]) Anatomical Region Laterality Modality Spine Computed Tomogra phy 05/21/2024 3:00 PM [facility] Impressions 05/22/2024 8:46 AM [facility] IMPRESSION: 1. No evidence of acute fracture in the cervical spine. > Interpreting Provider: Loi Fernandez MD on 05/22/2024 8:46 AM Narrative 05/22/2024 8:46 AM [facility] PROCEDURE: CT CERVICAL SPINE WO CONTRAST, DATE/TIME OF EXAM: 05/21/2024 2:30 PM, LOCATION [facility] INDICATION: Trauma ADDITIONAL CLINICAL INFORMATION: Ordering Provider [...] DATE/TIME OF EXAM: 05/21/2024 2:30 PM, LOCATION [facility] INDICATION: Trauma ADDITIONAL CLINICAL INFORMATION: Ordering Provider [...] leak, mental status changes (05/21/2024 2:29 PM [facility]) Anatomical Region Laterality Modality Head Computed Tomogra phy 05/21/2024 2:26 PM [facility] Impressions 05/21/2024 3:00 PM [facility] IMPRESSION: 1.No acute intracranial hemorrhage, territorial infarct, or mass effect identified. This preliminary report was dictated by Td Flowers MD (DR/IR Resident). ILoi MD have personally reviewed and interpreted this examination/study. > Interpreting Provider: Loi Fernandez MD on 05/21/2024 3:00 PM Narrative 05/21/2024 3:00 PM [facility] PROCEDURE: CT HEAD WO CONTRAST, DATE/TIME OF EXAM: 05/21/2024 2:18 PM, LOCATION [facility] INDICATION: Trauma ADDITIONAL CLINICAL INFORMATION: Ordering Provider [...] DATE/TIME OF EXAM: 05/21/2024 2:18 PM, LOCATION [facility] INDICATION: Trauma ADDITIONAL CLINICAL INFORMATION: Ordering Provider [...] GLOBAL HEMOSTASIS W/ LYSIS (05/21/2024 2:16 PM [facility]) Citrated Kaolin R (Reaction Time) 2.3(L) 4.6 - 9.1 min 05/21/2024 3:20 PM [facility] Comment:CK R result below no rmal range. Consistent with hypercoagulable clotting factors. Citrated Kaolin LY30 (Lysis) 1.7 0.0 - 2.6 % 05/21/2024 3:20 [address] [facility] Citrated Functional Fibrinogen MA (Max Amplitude) 18.9 15.0 - 32.0 mm 05/21/2024 3:20 [address] [facility] Citrated RapidTEG MA (Max Amplitude) 60.6 52.0 - 70.0 mm 05/21/2024 3:20 PM [facility] Blood BLOOD SPECIMEN / Unknown Venipuncture / Unknown 05/21/2024 2:16 PM [facility] 05/21/2024 2:24 PM [facility] Jeremías Ramirez MD LAB - HEMATOLOGY ORD ERABLES [facility] [address] [place] [address], [facility] [phone] * (ABNORMAL) TEG 6S PLATELET MAPPING (05/21/2024 2:16 PM [facility]) TEGPLM (Max Amplitude) Koalin 60.3 53.0 - 68.0 mm 05/21/2024 3:[address] [facility] TEGPLM (Max Amplitude) ACTF 12.0 2.0 - 19.0 mm 05/21/2024 3:26 PM [facility] TEGPLM (Max Amplitude) ADP 42.7(L) 45.0 - 69.0 mm 05/21/2024 3:26 PM [facility] Comment:ADP MA below normal range. Inhibition present. TEGPLM (Max Amplitude) AA 60.8 51.0 - 71.0 mm 05/21/2024 3:26 PM [facility] TEGPLM %Inhibition ADP 36.4(H) 0.0 - 17.0 % 05/21/2024 3:26 PM [facility] TEGPLM %Inhibition AA 0.0 0.0 - 11.0 % 05/21/2024 3:26 PM [facility] TEGPLM %Aggregation ADP 63.6(L) 83.0 - 100.0 % 05/21/2024 3:26 PM [facility] TEGPLM % Aggregation AA 100.0 89.0 - 100.0 % 05/21/2024 3:26 PM [facility] Blood BLOOD SPECIMEN / Unknown Venipuncture / Unknown 05/21/2024 2:16 PM [facility] 05/21/2024 2:24 PM [facility] [facility] [facility] Jeremías Ramirez MD LAB - HEMATOLOGY ORD ERABLES [facility] [address] [place] [phone], [facility] [phone] * PTT [facility] (05/21/2024 2:16 PM [facility]) APTT 23.2 23.0 - 38.4 Seconds 05/21/2024 2:51 PM [facility] Comment:Suggested therapeuti c range for full dose I.V. unfractionated heparin therapy for venous thromboembolism is 71 to 109 seconds. Blood BLOOD SPECIMEN / Unknown Venipuncture / Unknown 05/21/2024 2:16 PM [facility] 05/21/2024 2:24 PM [facility] [facility] Jeremías Ramirez MD LAB - COAGULATION OR DERABLES Performing Organization Address [facility]/ZIP Co de Phone Number [address] [address], [facility] [phone] * PT-INR [facility] (05/21/2024 2:16 PM [facility] [facility]) Pathologist [facility] PT 13.2 12.1 - 14.8 Seconds 05/21/2024 2:51 PM [facility] INR 1.0 See Comment 05/21/2024 2:51 PM [facility] Comment:The suggested therap eutic range for standard coumadin (warfarin) therapy is an INR of 2.0-3.0. For high-risk patients (Mechanical Mitral Valve Prosthesis, etc.), the suggested prophylactic therapeutic range is an INR of 2.5-3.5. Blood BLOOD SPECIMEN / Unknown Venipuncture / Unknown 05/21/2024 2:16 PM [facility] 05/21/2024 2:24 PM [facility] Jeremías Ramirez MD LAB - COAGULATION OR DERABLES Performing Organization Address [facility] Co de Phone Number [address] [address], [facility] [phone] * (ABNORMAL) CBC W AUTO DIFFERENTIAL (05/21/2024 2:16 PM [facility] [facility]) Pathologist [facility] WBC 8.5 4.0 - 10.7 x10E9/L 05/21/2024 2:31 PM [facility] RBC Count 4.42 3.90 - 5.20 x10E12/L 05/21/2024 2:31 PM [facility] Hemoglobin 14.3 11.9 - 15.8 g/dL 05/21/2024 2:31 PM [facility] Hematocrit 41.8 34.8 - 46.1 % 05/21/2024 2:31 PM [facility] MCV 94.6 80.0 - 98.0 fL 05/21/2024 2:31 PM [facility] MCH 32.4 26.7 - 33.6 pg 05/21/2024 2:[address] [facility] 34.[facility] 31.7 - 36.3 g/dL 05/21/2024 2:31 PM [facility] RDW-CV 12.4 11.3 - 14.8 % 05/21/2024 2:31 PM [facility] Platelet Count 181 150 - 420 x10E9/L 05/21/2024 2:31 PM [facility] MPV 10.2 7.8 - 11.4 fL 05/21/2024 2:31 PM [facility] Neutrophil % 76.9(H) 41.0 - 74.0 % 05/21/2024 2:31 PM [facility] Lymphocyte % 12.7(L) 17.0 - 47.0 % 05/21/2024 2:31 PM [facility] Monocyte % 8.6 3.0 - 11.0 % 05/21/2024 2:31 PM [facility] Eosinophil % 1.2 0.0 - 7.0 % 05/21/2024 2:31 PM [facility] Basophil % 0.2 0.0 - 1.6 % 05/21/2024 2:31 PM [facility] Immature Granulocytes % 0.4 0.0 - 1.0 % 05/21/2024 2:31 PM [facility] Neutrophil Absolute 6.57 1.60 - 7.50 x10E9/L 05/21/2024 2:31 PM [facility] Lymphocyte Absolute 1.08 1.00 - 4.40 x10E9/L 05/21/2024 2:31 PM [facility] Monocyte Absolute 0.73 0.15 - 1.00 x10E9/L 05/21/2024 2:31 PM [facility] Eosinophil Absolute 0.10 0.00 - 0.60 x10E9/L 05/21/2024 2:31 PM [facility] Basophil Absolute 0.02 0.00 - 0.13 x10E9/L 05/21/2024 2:31 PM [facility] Blood BLOOD SPECIMEN / Unknown Venipuncture / Unknown 05/21/2024 2:16 PM [facility] 05/21/2024 2:23 PM [facility] Jeremías Ramirez MD LAB - HEMATOLOGY ORD ERABLES [facility] [address] [place] [address], [facility] [phone] * BASIC METABOLIC PANEL (CALCIUM TOTAL) (05/21/2024 2:16 PM [facility]) BUN 12 7 - 26 mg/dL 05/21/2024 2:54 PM [facility] Creatinine 0.74 0.56 - 0.96 mg/dL 05/21/2024 2:54 PM [facility] Sodium 141 136 - 145 mmol/L 05/21/2024 2:54 PM [facility] Potassium 3.7 3.5 - 4.5 mmol/L 05/21/2024 2:54 PM [facility] Chloride 107 98 - 107 mmol/L 05/21/2024 2:54 PM [facility] CO2 25 22 - 29 mmol/L 05/21/2024 2:54 PM [facility] Glucose 95 70 - 99 mg/dL 05/21/2024 2:54 PM [facility] Calcium 9.7 8.4 - 10.2 mg/dL 05/21/2024 2:54 PM [facility] Anion Gap 9 6 - 16 05/21/2024 2:54 PM [facility] BUN/Creatinine Ratio 16 7 - 23 05/21/2024 2:54 PM [facility] Osmolality Calculated 292 275 - 295 mOsm/kg 05/21/2024 2:54 PM [facility] eGFR by CKD-EPI >90 >=90 mL/min/1.7 3 m2 05/21/2024 2:54 PM [facility] Blood BLOOD SPECIMEN / Unknown Venipuncture / Unknown 05/21/2024 2:16 PM [facility] 05/21/2024 2:24 PM [facility] Jeremías Ramirez MD LAB - CHEMISTRY PRADEEP RAMIREZ [facility] [address] [place] [address] [phone] * HCG BETA BLOOD QUANTITATIVE (05/21/2024 2:16 PM [facility]) [facility] Beta-hCG Total Quantitative <3 mIU/mL 05/21/2024 2:59 PM [facility] Comment: HCG Numeric [...] Unknown Venipuncture / Unknown 05/21/2024 2:16 PM [facility] 05/21/2024 2:24 PM [facility] Jeremías Ramirez MD LAB - CHEMISTRY PRADEEP RAMIREZ Performing Organization Address City/[facility]/ZIP Co de Phone Number [address] [address], [facility] [phone] * CK BLOOD (05/21/2024 2:16 PM [facility]) [facility] CK Total 113 30 - 200 U/L 05/21/2024 2:54 PM [facility] Blood BLOOD SPECIMEN / Unknown Venipuncture / Unknown 05/21/2024 2:16 PM [facility] 05/21/2024 2:24 PM [facility] Jeremías Ramirez MD LAB - CHEMISTRY PRADEEP RAMIREZ [address] [address], [facility] [phone] * ALCOHOL ETHYL BLOOD (05/21/2024 2:16 PM [facility]) [facility] Ethanol (mg/dL) <10 <10 mg/dL 2:54 PM [facility] Ethanol Calculated (g/dL) <0.010 <=0.010 g/dL 05/21/2024 2:54 PM [facility] Blood BLOOD SPECIMEN / Unknown Venipuncture / Unknown 05/21/2024 2:16 PM [facility] 05/21/2024 2:24 PM [facility] Narrative [facility] - 05/21/2024 2:54 PM [facility] Ethanol Interp <10: None Detected. Depression of FUR STRETCHER: >100 mg/dl Potentially Critical: >250 mg/dl Potentially [...] Ramirez MD LAB - CHEMISTRY PRADEEP RAMIREZ [facility] Organization Address City/State/ZIP Co de Phone Number [facility] [address] [place] [address], [facility] [phone] Care Teams Tank Shop Supervisor Relationship Specialty Start Date End Date Robert Bernard MD [address] [place] [phone] PCP - General Family Medicine 05/21/24
--- OUTSIDE RECORDS SUMMARY | 2024-07-21 09:45 | XMS_ITS | Encounter Summary ---
Author Organization [facility] Address [address] [place] [address] Phone Care Team Providers Care Machine Records Units Supervisor Name Role Phone Robert Bernard MD Primary Care Provider Mark Mccurdy MD Unavailable [phone] Encounter Details Date Type Department Care Team (Late st Contact Info) Description 09/26/2014 Orders Only [facility] CLINCONV ProviderToney MD [address] [place], [place] [id number] Social History Tobacco Use Types Packs/Day Years Used Date Smoking Tobacco: Never Assessed Comments Unknown Sex and Gender Information Value Date Recorded Sex Assigned at Not on file 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
--- OUTSIDE RECORDS SUMMARY | 2024-07-21 09:45 | XMS_ITS | Encounter Summary ---
Author Organization [facility] Address [address] [place] [address] Phone Care Team Providers Care Value Engineer Name Role Phone Robert Bernard MD Primary Care Provider Mark Mccurdy MD Unavailable [phone] Encounter Details Date Type Department Care Team (Late st Contact Info) Description 07/15/2014 Orders Only [facility] CLINCONV ProviderToney MD [address] [place], [place] [phone] Social History Tobacco Use Types Packs/Day Years Used Date Smoking Tobacco: Never Assessed Comments Unknown Sex and Gender Information Value Date Recorded Sex Assigned at Not on file 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
--- OUTSIDE RECORDS SUMMARY | 2024-07-21 09:45 | XMS_ITS | Encounter Summary ---
Author Organization [facility] Address [address] [place] [address] Phone Care Team Providers Care Machine Packer Name Role Phone Robert Bernard MD Primary Care Provider Mark Mccurdy MD Unavailable [phone] Encounter Details Date Type Department Care Team (Late st Contact Info) Description 09/05/2014 Orders Only [facility] CAR CLINCONV ProviderToney MD [address] [place], [place] [phone] Social History Tobacco Use Types Packs/Day Years Used Date Smoking Tobacco: Never Assessed Comments Unknown Sex and Gender Information Value Date Recorded Sex Assigned at Not on file 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
--- OUTSIDE RECORDS SUMMARY | 2024-07-21 09:45 | XMS_ITS | Encounter Summary ---
Author Organization [facility] Address [address] [place] [address] Phone Care Team Providers Care Egg Candler Name Role Phone Robret Bernard MD Primary Care Provider Mark Mccurdy MD Unavailable [phone] Encounter Details Date Type Department Care Team (Late st Contact Info) Description 02/05/2015 Orders Only [facility] CAR CLINCONV ProviderToney MD [address] [place], [place] [phone] Social History Tobacco Use Types Packs/Day Years Used Date Smoking Tobacco: Never Assessed Comments Unknown Sex and Gender Information Value Date Recorded Sex Assigned at Not on file 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
--- OUTSIDE RECORDS SUMMARY | 2024-07-21 09:45 | XMS_ITS | Encounter Summary ---
Author Organization [facility] [employer] [facility] Address [address] [place] [address] Phone Care Team Providers Care Guide Domestic Tour Name Role Phone Robert Bernard MD Primary Care Provider Mark Mccurdy MD Unavailable [phone] Encounter Details Date Type Department Care Team (Late st Contact Info) Description 12/10/2015 Orders Only [facility] Provider, MD Toney [address] [place] [address] Social History Tobacco Use Types Packs/Day Years Used Date Smoking Tobacco: Never Assessed Comments Unknown Sex and Gender Information Value Date Recorded Sex Assigned at Not on file 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
--- OUTSIDE RECORDS SUMMARY | 2024-07-21 09:45 | XMS_ITS | Encounter Summary ---
Author Organization [facility] Address [address] [place] [address] Phone Care Team Providers Care Full Stack Software Developer Name Role Phone Robert Bernard MD Primary Care Provider Mark Mccurdy MD Unavailable [phone] Encounter Details Date Type Department Care Team (Late st Contact Info) Description 09/24/2015 Orders Only [facility] ProviderToney MD [address] [place], [place] [id number] Social History Tobacco Use Types Packs/Day Years Used Date Smoking Tobacco: Never Assessed Comments Unknown Sex and Gender Information Value Date Recorded Sex Assigned at Not on file 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 [address] [place] [address] Referring Physician Cardiology 01/21/20 documented as of this encounter
--- OUTSIDE RECORDS SUMMARY | 2024-07-21 09:45 | XMS_ITS | Encounter Summary ---
Author Organization [facility] [employer] [facility] Address [address] [place] [address] Phone Care Team Providers Care Naphthalene Operator Name Role Phone Robert Bernard MD Primary Care Provider Mark Mccurdy MD Unavailable [phone] Encounter Details Date Type Department Care Team (Late st Contact Info) Description 07/30/2014 Orders Only [facility] Provider, MD Toney [address] [place] [address] Social History Tobacco Use Types Packs/Day Years Used Date Smoking Tobacco: Never Assessed Comments Unknown Sex and Gender Information Value Date Recorded Sex Assigned at Not on file 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
--- OUTSIDE RECORDS SUMMARY | 2024-07-21 09:45 | XMS_ITS | Clinical Summary ---
Author Organization [facility] Address [address] [place] [id number] Care Team Providers Care Agricultural Sciences Professor Name Role Phone Robert Bernard MD Primary [...] Comments Blood Pressure 114/82 06/29/2014 2:06 PM CUTTING MACHINE FIXER Pulse 91 06/29/2014 2:06 PM CUTTING MACHINE FIXER Temperature - - Respiratory Rate 18 06/29/2014 2:06 PM CUTTING MACHINE FIXER Oxygen Saturation - - Inhaled Oxygen Concentration - - Weight 64.4 kg (142 lb) 06/29/2014 2:06 PM CUTTING MACHINE FIXER Height 167.6 cm (5' 6 ) 06/29/2014 2:06 PM CUTTING MACHINE FIXER Body Mass Index 22.92 06/29/2014 2:06 PM CUTTING MACHINE FIXER Plan of Treatment Health Maintenance Due Date [...] Examination: Digital right diagnostic mammogram with CAD. [id number] Clinical history: Follow-up, abnormal screening mammogram. History [...] in greatest dimension. These are mammographically occult. [place] appearing tissue architecture is otherwise demonstrated. No [...] Cabrera MD, 12/20/2022 3:18 PM Raheel Yeager [place] MAMMO Final Result from Last 3 Months or Most Recently Relevant to Health Maintenance Insurance MEDICARE MEDICAID Care Teams Agricultural Sciences Professor Relationship Specialty Start Date End Date Robert Bernard MD [address] [place] [phone] PCP - General FAMILY PRACTICE 07/01/19
--- OUTSIDE RECORDS SUMMARY | 2024-07-21 09:45 | XMS_ITS | Encounter Summary ---
Author Organization [facility] Address [address] [place] [address] Care Team Providers Care Geophysical Laboratory Director Name Role Phone Robert Bernard MD Primary Care Provider Mark Mccurdy MD Unavailable [phone] Reason for Visit * Reason Onset Date Comments Med Refill 10/27/2019 Encounter Details Date Type Department Care Team (Late st Contact Info) Description 10/27/2019 Telephone [facility] [address] [facility] [address] [place] [address] Olamide Pruitt MD [address] [facility] [address] [place] [address] Med Refill Social History Tobacco Use Types [...] on file 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 Author CCM Chronic Pain Care Plan Chronic Care Management No change(03/30 10:46 AM ATHLETIC TURF WORKER) Gillian Segovia, RN Note: Problem: Chronic Pain Goals: 1. Minimize further functional decline 2. Maximize quality of life 3. Control pain Strategies: - Activity/exercise program recommendation - Conservative stepwise pain medicine strategy with multi-disciplinary approach - Recommend healthy lifestyle strategies and compensatory methods as needed documented as of this encounter Visit Diagnoses Not on filedocumented in this encounter Care Teams Geophysical Laboratory Director Relationship Specialty Start Date End Date Robert Bernard MD PCP - General 10/06/16 Mark Mccurdy MD [address] [place] [address] Referring Physician Cardiology 01/21/20 documented as of this encounter
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
--- OUTSIDE RECORDS SUMMARY | 2024-07-21 09:45 | XMS_ITS | Encounter Summary ---
Author Organization [facility] Address [address] [place] [address] Phone Care Team Providers Care Ham Facer Name Role Phone Robert Bernard MD Primary Care Provider Mark Mccurdy MD Unavailable [phone] Encounter Details Date Type Department Care Team (Late st Contact Info) Description 07/03/2015 Orders Only [facility] CLINCONV ProviderToney MD [address] [place], [place] [id number] Social History Tobacco Use Types Packs/Day Years Used Date Smoking Tobacco: Never Assessed Comments Unknown Sex and Gender Information Value Date Recorded Sex Assigned at Not on file 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
--- OUTSIDE RECORDS SUMMARY | 2024-07-21 09:45 | XMS_ITS | Encounter Summary ---
Author Organization [facility] Address [address] [place] [address] Phone Care Team Providers Care Behavioral Therapy Coordinator Name Role Phone Robert Bernard MD Primary Care Provider Mark Mccurdy MD Unavailable [phone] Encounter Details Date Type Department Care Team (Late st Contact Info) Description 06/06/2015 Orders Only [facility] CLINCONV ProviderToney MD [address] [place], [place] [id number] Social History Tobacco Use Types Packs/Day Years Used Date Smoking Tobacco: Never Assessed Comments Unknown Sex and Gender Information Value Date Recorded Sex Assigned at Not on file 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
--- OUTSIDE RECORDS SUMMARY | 2024-07-21 09:45 | XMS_ITS | Encounter Summary ---
Author Organization [facility] Address [address] [place] [address] Phone Care Team Providers Care Seam Rubbing Machine Operator Name Role Phone Robert Bernard MD Primary Care Provider Mark Mccurdy MD Unavailable [phone] Encounter Details Date Type Department Care Team (Late st Contact Info) Description 10/19/2017 Telephone [facility] Cardiology [facility] 8th [place] [address] [place] [id number] Shanique Maharaj, MPH Social History Tobacco Use Types Packs/Day Years Used Date Smoking Tobacco: Former Comments Unknown Sex and Gender Information Value Date Recorded Sex Assigned at Not on file 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
--- OUTSIDE RECORDS SUMMARY | 2024-07-21 09:45 | XMS_ITS | Encounter Summary ---
Author Organization [facility] Address [address] [place] [address] Phone Care Team Providers Care Studio Coordinator Name Role Phone Robert Bernard MD Primary Care Provider [phone] Mark Mccurdy MD Unavailable [phone] Encounter Details Date Type Department Care Team (Late st Contact Info) Description 12/29/2014 Orders Only [facility] CAR CLINCONV ProviderToney MD [address] [place], [place] [phone] Social History Tobacco Use Types Packs/Day Years Used Date Smoking Tobacco: Never Assessed Comments Unknown Sex and Gender Information Value Date Recorded Sex Assigned at Not on file 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
--- OUTSIDE RECORDS SUMMARY | 2024-07-21 09:45 | XMS_ITS | Encounter Summary ---
Author Organization [facility] Address [address] [place] [address] Phone Care Team Providers Care Produce Shipper Name Role Phone Robert Bernard MD Primary Care Provider Mark Mccurdy MD Unavailable [phone] Encounter Details Date Type Department Care Team (Late st Contact Info) Description 07/28/2014 Orders Only [facility] CLINCONV Provider, MD Toney [address] [place] [address] Social History Tobacco Use Types Packs/Day Years Used Date Smoking Tobacco: Never Assessed Comments Unknown Sex and Gender Information Value Date Recorded Sex Assigned at Not on file 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
--- OUTSIDE RECORDS SUMMARY | 2024-07-21 09:45 | XMS_ITS | Encounter Summary ---
Author Organization [facility] Address [address] [place] [address] Phone Care Team Providers Care Improvement Nurse Name Role Phone Robert Bernard MD Primary Care Provider Mark Mccurdy MD Unavailable [phone] Encounter Details Date Type Department Care Team (Late st Contact Info) Description 04/14/2015 Orders Only [facility] CLINCONV Provider, MD Toney [address] [place] [address] Social History Tobacco Use Types Packs/Day Years Used Date Smoking Tobacco: Never Assessed Comments Unknown Sex and Gender Information Value Date Recorded Sex Assigned at Not on file 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
--- OUTSIDE RECORDS SUMMARY | 2024-07-21 09:45 | XMS_ITS | Encounter Summary ---
Author Organization [facility] Address [address] [place] [address] Phone Care Team Providers Care Dentures Lab Technician Name Role Phone Robert Bernard MD Primary Care Provider [phone] Mark Mccurdy MD Unavailable [phone] Encounter Details Date Type Department Care Team (Late st Contact Info) Description 07/16/2016 Orders Only [facility] CLINCONV ProviderToney MD [address] [place], [place] [id number] Social History Tobacco Use Types Packs/Day Years Used Date Smoking Tobacco: Never Assessed Comments Unknown Sex and Gender Information Value Date Recorded Sex Assigned at Not on file 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
--- OUTSIDE RECORDS SUMMARY | 2024-07-21 09:45 | XMS_ITS | Referral Summary ---
Author Organization [facility] Address [address] [place] [address] Care Team Providers Care Odd Job Laborer Name Role Phone Robert Bernard MD Primary Care Provider Mark Mccurdy MD Unavailable [phone] Encounters Date Type Department Care Team Description 05/26/2024 Orders Only [facility] Cardiology [address] [facility] [address] [place] [address] Hema Norton MD PhD 05/26/2024 Telephone [facility] Cardiology [address] [facility] 8th [place] [address] [place] [address] Hema Norton MD PhD 05/23/2024 Telephone [facility] Cardiology [address] [facility] 8th [place] [address] [place] [phone] eHma Norton MD PhD from Last 3 Months [...] foramen ovale 12/31/2017 SSS (sick sinus syndrome) 12/27/2017 Presence of cardiac pacemaker 12/27/2017 Chronic [...] on file Legal Sex Female 5:12 AM VIDEO GAME PRODUCER Gender Identity Not on file Sexual Orientation Not on file Last Filed Vital Signs Vital Sign Reading Time Taken Comments Blood Pressure 115/79 02/26/2023 8:44 AM CDT Pulse 83 02/26/2023 8:44 AM CDT Temperature 36.5 C (97.7 F) 03/30/2021 10:39 AM VIDEO GAME PRODUCER Respiratory Rate 16 03/30/2021 10:39 AM VIDEO GAME PRODUCER Oxygen Saturation 99% 02/26/2023 8:44 AM CDT [...] Chronic Care Management No change(03/30 10:46 AM VIDEO GAME PRODUCER) No Gillian Vela RN Note: Problem: Chronic Pain Goals: 1. Minimize further functional decline 2. Maximize quality of life 3. Control pain Strategies: - Activity/exercise program recommendation - Conservative stepwise pain medicine strategy with multi-disciplinary approach - Recommend healthy lifestyle strategies and compensatory methods as needed Medical Devices Implanted Type Area Cloth Bin Packer Device Identifier Shelf Expiration Date Model / Serial / Lot Pacemaker Chest Procedures Procedure Name Priority Date/Time Associated Diagnosis Comments DEVICE CHECK - REMOTE Routine 05/26/2024 9:30 PM VIDEO GAME PRODUCER from Last 3 Months Results * DEVICE CHECK - REMOTE (05/26/2024 9:30 PM VIDEO GAME PRODUCER) Anatomical Region Laterality Modality Other 05/26/2024 9:30 PM VIDEO GAME PRODUCER Narrative 06/01/2024 9:32 AM VIDEO GAME PRODUCER Interpretation Summary: Battery and Leads (BL) Normal parameters noted on battery and lead(s) --- 1.5 yrs (1 to 1.5 yrs) remaining longevity (implanted 2014). Lead impedance, threshold, and RA sensing trends stable and appropriate. No short V-V intervals. R wave out of range --- R wave 4.5 mV. Trend is stable. RV sensitivity is programmed 2.0 mV. Presenting Rhythm (DC) Atrial Sensing-Ventricular Sensing (-VS) --- /VS (SR/ST) [...] RV sensitivityis programmed 2.0 mV. Presenting Rhythm (DC) Atrial Sensing-Ventricular Sensing (-VS) --- /VS (SR/ST) [...] Final Result from Last 3 Months Insurance [facility] MEDICARE [facility] Care Teams Odd Job Laborer Relationship Specialty Start Date End Date Robert Bernard MD PCP - General 10/06/16 Mark Mccurdy MD [address] [place] [address] Referring Physician Cardiology 01/21/20
--- OUTSIDE RECORDS SUMMARY | 2024-07-21 09:45 | XMS_ITS | Encounter Summary ---
Author Organization [facility] Address [address] [place] [address] Phone Care Team Providers Care Director Long Term Care Name Role Phone Robert Bernard MD Primary Care Provider Mark Mccurdy MD Unavailable [phone] Encounter Details Date Type Department Care Team (Late st Contact Info) Description 02/01/2015 Orders Only [facility] CLINCONV ProviderToney MD [address] [place], [place] [phone] Social History Tobacco Use Types Packs/Day Years Used Date Smoking Tobacco: Never Assessed Comments Unknown Sex and Gender Information Value Date Recorded Sex Assigned at Not on file 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
--- OUTSIDE RECORDS SUMMARY | 2024-07-21 09:45 | XMS_ITS | Clinical Summary ---
Author Organization [facility] Address [address] [place] [address] Care Team Providers Care Wireless Sales Associate Name Role Phone Robert Bernard MD Primary Care Provider Mark Mccurdy MD Unavailable [phone] Allergies No known active allergies Medications [...] Department Care Team Description 05/26/2024 Orders Only [facility] Cardiology [address] [facility] [address] [place] [address] Hema Norton MD PhD 05/26/2024 Telephone [facility] Cardiology [address] [facility] 8th [place] [address] [place] [phone] Hema Norton MD PhD 05/23/2024 Telephone [facility] Cardiology [facility] [facility] 8th [place] [address] [place] [address] Hema Norton MD PhD from [...] back pain Memory impairment Sick sinus syndrome (HCC) Neuropathy Depression Dyslipidemia Tachycardia Vision impairment Family History [...] on file Legal Sex Female 5:12 AM SUPERVISOR DOPING Gender Identity Not on file Sexual Orientation Not on file Obstetrics History Last Filed Vital Signs Vital Sign Reading Time Taken Comments Blood Pressure 115/79 02/26/2023 8:44 AM CDT Pulse 83 02/26/2023 8:44 AM CDT Temperature 36.5 C (97.7 F) 03/30/2021 10:39 AM SUPERVISOR DOPING Respiratory Rate 16 03/30/2021 10:39 AM SUPERVISOR DOPING Oxygen Saturation 99% 02/26/2023 8:44 AM CDT [...] Chronic Care Management No change(03/30 10:46 AM SUPERVISOR DOPING) No Gillian Vela, LEEANNA Note: Problem: Chronic Pain Goals: 1. Minimize further functional decline 2. Maximize quality of life 3. Control pain Strategies: - Activity/exercise program recommendation - Conservative stepwise pain medicine strategy with multi-disciplinary approach - Recommend healthy lifestyle strategies and compensatory methods as needed Medical Devices Implanted Type Area Certified Physical Therapist Assistant Device Identifier Shelf Expiration Date Model / Serial / Lot Pacemaker Chest Procedures Procedure Name Priority Date/Time Associated Diagnosis Comments DEVICE CHECK - REMOTE Routine 05/26/2024 9:30 PM SUPERVISOR DOPING from Last 3 Months Results * DEVICE CHECK - REMOTE (05/26/2024 9:30 PM SUPERVISOR DOPING) Anatomical Region Laterality Modality Other 05/26/2024 9:30 PM SUPERVISOR DOPING Narrative 06/01/2024 9:32 AM SUPERVISOR DOPING Interpretation Summary: Battery and Leads (BL) Normal parameters noted on battery and lead(s) --- 1.5 yrs (1 to 1.5 yrs) remaining longevity (implanted 2014). Lead impedance, threshold, and RA sensing trends stable and appropriate. No short V-V intervals. R wave out of range --- R wave 4.5 mV. Trend is stable. RV sensitivity is programmed 2.0 mV. Presenting Rhythm ([place]) Atrial Sensing-Ventricular Sensing (-VS) --- /VS (SR/ST) [...] RV sensitivityis programmed 2.0 mV. Presenting Rhythm (MO) Atrial Sensing-Ventricular Sensing (-VS) --- /VS (SR/ST) [...] Final Result from Last 3 Months Insurance [facility] MEDICARE [facility] [place] [facility] Care Teams Wireless Sales Associate Relationship Specialty Start Date End Date Robert Bernard MD PCP - General 10/06/16 Mark Mccurdy MD [address] [place] [address] Referring Physician Cardiology 01/21/20
--- OUTSIDE RECORDS SUMMARY | 2024-07-21 09:45 | XMS_ITS | Encounter Summary ---
Author Organization [facility] Address [address] [place] [address] Phone Care Team Providers Care Mosaic Layer Name Role Phone Robert Bernard MD Primary Care Provider Mark Mccurdy MD Unavailable [phone] Encounter Details Date Type Department Care Team (Latest Contact Info) Description 12/04/2016 Orders Only [facility] CONVERSION Scanning, Provider Social History Tobacco Use Types Packs/Day Years Used Date Smoking Tobacco: Never Assessed Comments Unknown Sex and Gender Information Value Date Recorded Sex Assigned at Not on file 

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
== END 2024-07-21 08:53 | disposition home or self-care (01) ==
LOC: CHSIMG 08:55
PROVIDERS: PCP Family Medicine; Visit Provider Family Medicine
DX: R92.8 Other abnormal and inconclusive findings on diagnostic imaging of breast (principal)
CPT/HCPCS: 76642; 77062; 77066; G0279

== ENCOUNTER 2024-10-29 15:16 | Emergency (ER) | payer MEDICARE, MEDICAID, SELFPAY ==
[2024-10-29] VITALS (22 sets, daily range): BP systolic 97–129; BP diastolic 54–88; PULSE 70–97; RESP 13–22; TEMP 36.3–36.5; O2SAT 97–100
--- NOTE | ~2024-10-29 | CT_ITS ---
CT brain wo con Ordering provider: Alicia Son PA-C History: 49 years Female with . L sided tingling, hx cva . Comparison: None. Technique: CT of the head without contrast. Radiation reduction technique utilized.The dose-length pr oduct was 605.33 mGy-cm. FINDINGS: BRAIN PARENCHYMA AND CSF SPACES: 6 mm Tonsillar ectopia is seen on the left side suggestive of Chiari I malformation. No midline shift, mass effect or hemorrhage. The brain parenchyma and CSF spaces ar e otherwise normal. VISUALIZED PARANASAL SINUSES: Left maxillary sinus disease. Well aerated. MASTOIDS: Well aerated. BONES: The bones appear intact. SOFT TISSUES: Visualized nasopharynx is normal. Superficial soft tissues are normal. IMPRESSION: No acute intracranial findings. Tonsillar ectopia is seen in the left side suggestive of Chiari I malformation. Reviewed, dictated and finalized at location A.
--- NOTE | ~2024-10-29 | XR_ITS ---
CHEST RADIOGRAPH, PA AND LATERAL CLINICAL HISTORY: cva w/u LT SIDED WEAKNESS . COMPARISON: None available TECHNIQUE: PA and lateral views of the chest. FINDINGS The left mid lung is partially obscured due to pacemaker generator. Wires project over the right atrium and right ventricle. Coils project over the left posterior basal pulmonary artery. The remainder of the cardiomediastinal silhouette is otherwise unremarkable. The lungs are clear. IMPRESSION: No focal infiltrate or effusion. Reviewed, dictated and finalized at location A.
--- NOTE | 2024-10-29 16:29 | ED_ITS ---
HPI - Weakness General Chief complaint: Weakness Stated complaint: Left sided weakness x several days, CVA hx Time Seen by Provider: 10/29/24 16:29 Focused HPI: Patient is a 49 y/o female, with PMH of 3 previous CVA, pacemaker, who presents to the ED via EMS with report of L sided numbness/tingling. Patient reports she began having aching and numbness/tingling in her left-sided hand 2 days ago. Today, around noon, the numbness/tingling began moving upper left arm. She is also reporting numbness/tingling in L sided facial cheek and throughout the entire left leg, R-sided LUNA. Denies significant weakness of L arm/leg. Denies vision changes, speech disturbance. Does not currently follow with a neurologist. Patient is on plavix, atorvastatin. GENERAL: Well-appearing, well-nourished, and in no acute distress. HEAD: Normocephalic, atraumatic. CHEST: Clear to auscultation. ?No respiratory distress. HEART: Regular rate and rhythm.? NEURO: A&O X3. Speech clear. Follows commands. CN II-XII intact. Sensation subjectively decreased in LUE/LLE. Steady gait. No ataxic movements. Strength 5/5 in upper and lower extremities bilaterally. No pronator drift. Equal senior principal process engineer strength bilaterally. PSYCHIATRIC: Appropriate mood and affect. Normal interaction. Patient screened in triage and initial orders placed.? ?Additional care and disposition to be based upon?diagnostic testing and treatment. Source: patient Mode of arrival: EMS Limitations: no limitations Related Data Allergies Allergy/AdvReac Type Severity Reaction Status Date / Time No Known Allergies Allergy Verified 10/29/24 15:17 Course Vital Signs Vital signs: Vital Signs Temperature 97.4 F L 10/29/24 15:39 Pulse Rate 81 10/29/24 15:39 Respiratory Rate 16 10/29/24 15:39 Blood Pressure 129/88 10/29/24 15:39 Pulse Oximetry 97 10/29/24 15:39 Temperature 97.7 F 10/29/24 17:37 Pulse Rate 76 10/30/24 00:00 Respiratory Rate 13 10/30/24 00:00 Blood Pressure 104/60 10/30/24 00:00 Pulse Oximetry 99 10/30/24 00:00 Oxygen Delivery Room Air 10/29/24 19:20 MDM - Weakness MDM Narrative Medical decision making narrative: MSE by KIMBERLEE in triage. Lab Data 10/29/24 17:51 10/29/24 17:51 Labs: Lab Results 10/29/24 10/29/24 10/29/24 Range/Units 17:50 17:51 22:11 WBC 8.6 (4.5-10.0) K/mm3 RBC 5.05 (4.2-5.4) M/mm3 Hgb 15.9 H (12.0-15.0) g/dL Hct 47.6 H (37.0-47.0) % MCV 94.3 (80-100) fl MCH 31.5 (26-34) pg MCHC 33.4 (32-36) g/dl RDW 12.4 (11.5-14.5) % Plt Count 241 (150-375) k/mm3 MPV 10.3 (7.4-10.4) fl Immature Gran % (Auto) 0.2 (0-0.5) % Neut % (Auto) 67.1 (45.5-73.1) % Lymph % (Auto) 24.7 (18.3-44.2) % Martin % (Auto) 5.7 (2.6-8.5) % Eos % (Auto) 2.1 (0-4.4) % Baso % (Auto) 0.2 (0.2-1.2) % Lymph # (Auto) 2.11 (0.9-3.2) K/mm3 Martin # (Auto) 0.5 (0.1-0.6) K/mm3 Eos # (Auto) 0.2 (0-0.3) K/mm3 Baso # (Auto) 0.0 (0.0-0.1) K/mm3 Abs Immat Gran (auto) 0.02 (0.00-0.031) K/mm3 Absolute Neuts (auto) 5.7 (1.3-6.7) K/mm3 Absolute Nucleated RBC 0.000 (0.0-0.012) K/mm3 Nucleated RBC % 0.0 (0.0-0.2) % PT 13.4 (11.1-14.7) Seconds INR 1.0 APTT 28.5 (22.3-36.8) Seconds Sodium 141 (137-145) mmol/L Potassium 3.4 (3.4-5.0) mmol/L Chloride 104 (98-107) mmol/L Carbon Dioxide 26 (22-30) mmol/L Anion Gap 11 (4-12) mmol/L BUN 10 (7-17) mg/dL Creatinine 0.73 (0.7-1.0) mg/dL Estim Creat Clear Calc Not Reportable Estimated GFR > 60 (59 - ) Glucose 140 H (65-110) mg/dL Calcium 9.8 (8.4-10.2) mg/dL Total Bilirubin 0.6 (0.2-1.3) mg/dL AST 27 (14-36) U/L ALT 21 (6-35) U/L Alkaline Phosphatase 86 (38-126) U/L Troponin I < 0.012 (0.000-0.034) ng/mL Total Protein 8.1 (6.3-8.2) g/dL Albumin 4.4 (3.5-5.1) g/dL TSH 1.840 (0.465-4.680) uIU/mL Urine Color Yellow (Yellow) Urine Appearance Clear (Clear) Urine pH 5.5 (5.0-9.0) Ur Specific Bath 1.008 (1.001-1.035) Urine Protein Negative (Negative) mg/dL Urine Glucose (UA) Negative (Negative) mg/dL Urine Ketones Negative (Negative) mg/dL Ur Blood (Man) Negative (Negative) Urine Nitrate Negative (Negative) Urine Bilirubin Negative (Negative) Urine Urobilinogen 0.2 (<2.0) mg/dL Leukocyte Esterase Rfl Negative (Negative) SUJIT/UL Discharge Plan Discharge Clinical Impression: Paresthesia of arm Patient Disposition: Acute Care Hospital Condition: Stable Patient Language: Lithuanian Follow-up/Referrals: Memo,Ela Marin MD [Primary Care Provider] -
--- NOTE | 2024-10-29 16:36 | ECG_ITS ---
Test Date: 2024-10-29 17:44:00 Measurements Intervals [place] Rate: 93 P: 54 SC: 169 QRS: -18 QRSD: 84 T: 57 QT: 334 QTc: 417 Interpretive Statements SINUS RHYTHM BORDERLINE R WAVE PROGRESSION, ANTERIOR LEADS BASELINE ARTIFACT- I, II, III, AVR, AVL BORDERLINE ECG No previous ECG available for comparison Electronically Signed On 10-29-2024 21:11:01 CDT by Jose Alejandro Og D.O.
--- OUTSIDE RECORDS SUMMARY | 2024-10-29 17:07 | XMS_ITS | Encounter Summary ---
Author Organization [facility] Address [address] [place] [address] Phone Care Team Providers Care Healthcare Facility Administrator Name Role Phone Robert Bernard MD Primary Care Provider [phone] Mark Mccurdy MD Unavailable Encounter Details Date Type Department Care Team (Late st Contact Info) Description 07/15/2014 Orders Only [facility] ProviderToney MD [address] [place], [place] [id number] Social History Tobacco Use Types Packs/Day Years Used Date Smoking Tobacco: Never Assessed Comments Unknown Sex and Gender Information Value Date Recorded Sex Assigned at Not on file Legal Sex Female 5:12 AM EXAMINATION PROCTOR Gender Identity Not on file Sexual Orientation [...] on filedocumented in this encounter Care Teams Healthcare Facility Administrator Relationship Specialty Start Date End Date Robert Bernard MD PCP - General 10/06/16 Mark Mccurdy MD [address] [facility] [address] [place] [address] Referring Physician Cardiology 01/21/20 documented as of this encounter
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
--- OUTSIDE RECORDS SUMMARY | 2024-10-29 17:07 | XMS_ITS | Encounter Summary ---
Author Organization [facility] Address [address] [place] [address] Phone Care Team Providers Care Telemarketing Supervisor Name Role Phone Robert Bernard MD Primary Care Provider [phone] Mark Mccurdy MD Unavailable [phone] Encounter Details Date Type Department Care Team (Late st Contact Info) Description 02/01/2015 Orders Only [facility] ProviderToney MD [address] [place], [place] [phone] Social History Tobacco Use Types Packs/Day Years Used Date Smoking Tobacco: Never Assessed Comments Unknown Sex and Gender Information Value Date Recorded Sex Assigned at Not on file 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
--- OUTSIDE RECORDS SUMMARY | 2024-10-29 17:07 | XMS_ITS | Encounter Summary ---
Author Organization [facility] [employer] [facility] Address [address] [place] [address] Phone Care Team Providers Care Fountain Manager Name Role Phone Robert Bernard MD Primary Care Provider Mark Mccurdy MD Unavailable [phone] Encounter Details Date Type Department Care Team (Late st Contact Info) Description 07/28/2014 Orders Only [facility] Provider, MD Toney [address] [place] [id number] Social History Tobacco Use Types Packs/Day Years Used Date Smoking Tobacco: Never Assessed Comments Unknown Sex and Gender Information Value Date Recorded Sex Assigned at Not on file Legal Sex Female 5:12 AM SENIOR BUSINESS BROKER Gender Identity Not on file Sexual Orientation [...] on filedocumented in this encounter Care Teams Fountain Manager Relationship Specialty Start Date End Date Robert Bernard MD PCP - General 10/06/16 Mark Mccurdy MD [address] [place] [address] Referring Physician Cardiology 01/21/20 documented as of this encounter
--- OUTSIDE RECORDS SUMMARY | 2024-10-29 17:07 | XMS_ITS | Encounter Summary ---
Author Organization [facility] [employer] [facility] Address [address] [place] [address] Phone Care Team Providers Care Community Artist Name Role Phone Robert Bernard MD Primary Care Provider Mark Mccurdy MD Unavailable [phone] Encounter Details Date Type Department Care Team (Late st Contact Info) Description 07/30/2014 Orders Only [facility] Provider, MD Toney [address] [place] [address] Social History Tobacco Use Types Packs/Day Years Used Date Smoking Tobacco: Never Assessed Comments Unknown Sex and Gender Information Value Date Recorded Sex Assigned at Not on file 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
--- OUTSIDE RECORDS SUMMARY | 2024-10-29 17:07 | XMS_ITS | Encounter Summary ---
Author Organization [facility] Address [address] [place] [address] Phone Care Team Providers Care Pulmonary Function Technologist Name Role Phone Robert Bernard MD Primary Care Provider [phone] Mark Mccurdy MD Unavailable [phone] Encounter Details Date Type Department Care Team (Late st Contact Info) Description 12/29/2014 Orders Only [facility] ProviderToney MD [address] [place], [place] [phone] Social History Tobacco Use Types Packs/Day Years Used Date Smoking Tobacco: Never Assessed Comments Unknown Sex and Gender Information Value Date Recorded Sex Assigned at Not on file 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
--- OUTSIDE RECORDS SUMMARY | 2024-10-29 17:07 | XMS_ITS | Encounter Summary ---
Author Organization [facility] Address [address] [place] [address] Phone Care Team Providers Care Breakfast Server Name Role Phone Robert Bernard MD Primary Care Provider [phone] Mark Mccurdy MD Unavailable [phone] Encounter Details Date Type Department Care Team (Late st Contact Info) Description 02/05/2015 Orders Only [facility] ProviderToney MD [address] [place], [place] [phone] Social History Tobacco Use Types Packs/Day Years Used Date Smoking Tobacco: Never Assessed Comments Unknown Sex and Gender Information Value Date Recorded Sex Assigned at Not on file Legal Sex Female 5:12 AM CARE COORDINATION MANAGER Gender Identity Not on file Sexual [...] on filedocumented in this encounter Care Teams Breakfast Server Relationship Specialty Start Date End Date Robert Bernard MD PCP - General 10/06/16 Mark Mccurdy MD [address] [facility] [address] [place] [address] Referring Physician Cardiology 01/21/20 documented as of this encounter
--- OUTSIDE RECORDS SUMMARY | 2024-10-29 17:07 | XMS_ITS | Encounter Summary ---
Author Organization [facility] Address [address] [place] [address] Phone Care Team Providers Care Bridge Crane Operator Name Role Phone Robert Bernard MD Primary Care Provider Mark Mccurdy MD Unavailable [phone] Encounter Details Date Type Department Care Team (Late st Contact Info) Description 09/05/2014 Orders Only [facility] ProviderToney MD [address] [place], [place] [phone] Social History Tobacco Use Types Packs/Day Years Used Date Smoking Tobacco: Never Assessed Comments Unknown Sex and Gender Information Value Date Recorded Sex Assigned at Not on file 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
--- OUTSIDE RECORDS SUMMARY | 2024-10-29 17:07 | XMS_ITS | Encounter Summary ---
Author Organization [facility] Healthcare Address [address] [place] [address] Care Team Providers Care Offender Employment Specialist Name Role Phone Robret Bernard MD Primary Care Provider Mark Mccurdy MD Unavailable [phone] Reason for Visit * Reason Onset Date Comments Med Refill 10/27/2019 Encounter Details Date Type Department Care Team (Late st Contact Info) Description 10/27/2019 Telephone [facility] [address] [place] [address] Olamide Pruitt MD [address] [facility] [address] [place] [address] Med Refill Social History Tobacco Use Types [...] on file Legal Sex Female 5:12 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 Author CCM Chronic Pain Care Plan Chronic Care Management No change(03/30 10:46 AM ELEMENTARY SPANISH TEACHER) Gillian Segovia, RN Note: Problem: Chronic Pain Goals: 1. Minimize further functional decline 2. Maximize quality of life 3. Control pain Strategies: - Activity/exercise program recommendation - Conservative stepwise pain medicine strategy with multi-disciplinary approach - Recommend healthy lifestyle strategies and compensatory methods as needed documented as of this encounter Visit Diagnoses Not on filedocumented in this encounter Care Teams Offender Employment Specialist Relationship Specialty Start Date End Date Robert Bernard MD PCP - General 10/06/16 Mark Mccurdy MD [address] [place] [address] Referring Physician Cardiology 01/21/20 documented as of this encounter
--- OUTSIDE RECORDS SUMMARY | 2024-10-29 17:08 | XMS_ITS | Encounter Summary ---
Author Organization [facility] Address [address] [place] [address] Phone Care Team Providers Care Skein Mercerizing Machine Operator Name Role Phone Robert Bernard MD Primary Care Provider [phone] Mark Mccurdy MD Unavailable [phone] Encounter Details Date Type Department Care Team (Late st Contact Info) Description 07/16/2016 Orders Only [facility] ProviderToney MD [address] [place], [place] [phone] Social History Tobacco Use Types Packs/Day Years Used Date Smoking Tobacco: Never Assessed Comments Unknown Sex and Gender Information Value Date Recorded Sex Assigned at Not on file Legal Sex Female 5:12 AM SENIOR OPERATIONS ANALYST Gender Identity Not on file Sexual Orientation [...] on filedocumented in this encounter Care Teams Skein Mercerizing Machine Operator Relationship Specialty Start Date End Date Robert Bernard MD PCP - General 10/06/16 Mark Mccurdy MD [address] [facility] [address] [place] [address] Referring Physician Cardiology 01/21/20 documented as of this encounter
--- OUTSIDE RECORDS SUMMARY | 2024-10-29 17:08 | XMS_ITS | Clinical Summary ---
Author Organization [facility] Address [address] [place] [address] Care Team Providers Care Scale Assembly Set Up Worker Name Role Phone Robert Bernard MD Primary Care Provider Mark Mccurdy MD Unavailable [phone] Allergies No known active allergies Medications [...] Encounters Date Type Department Care Team Description 10/17/2024 Orders Only [facility] [address] [place] [address] [place] [address] Hema Norton MD PhD Presence of cardiac pacemaker (Primary Dx) 10/17/2024 Telephone [facility] Cardiology [address] [place] [address] 8th [place] [address] [place] [address] Hema Norton MD PhD 09/09/2024 Telephone [facility] [address] [place] [address] 8th [place] [address] [place] [address] Hema Norton MD PhD from Last 3 [...] on file Legal Sex Female 5:12 AM MANAGER COST Gender Identity Not on file Sexual Orientation Not on file Obstetrics History Last Filed Vital Signs Vital Sign Reading Time Taken Comments Blood Pressure 115/79 02/26/2023 8:44 AM CDT Pulse 83 02/26/2023 8:44 AM CDT Temperature 36.5 C (97.7 F) 03/30/2021 10:39 AM MANAGER COST Respiratory Rate 16 03/30/2021 10:39 AM MANAGER COST Oxygen Saturation 99% 02/26/2023 8:44 AM CDT Inhaled Oxygen Concentration - - Weight 79.4 kg (175 lb) 02/26/2023 8:44 AM CDT Height 162.6 cm (5' 4) 12/05/2021 10:25 AM CDT Body Mass Index 30.04 12/05/2021 10:25 AM CDT Plan of Treatment Health Maintenance Due Date Last Done Comments Breast Cancer Screening-Mammogram 1976 Colon Cancer Screening-Colonoscopy 1976 Depression Screening 1976 Hepatitis C Screening 1976 Hepatitis B Screening 1994 Regular Well Visit/Exam 18-64 1994 Influenza Vaccine (Season Ended) 2025 07/19/2017, 02/07/2016 DTaP/Tdap/Td Vaccine (3 - Td or Tdap) 01/10/2026 01/11/2016, 10/03/2011 Pneumococcal vaccine <65 Aged Out No longer eligible based on patient's age to complete this topic Goals Goal Patient Goal Type Associated Problems Recent Progress Patient-Stated? Author CCM Chronic Pain Care Plan Chronic Care Management No change(03/30 10:46 AM MANAGER COST) No Gillian Vela, RN Note: Problem: Chronic Pain Goals: 1. Minimize further functional decline 2. Maximize quality of life 3. Control pain Strategies: - Activity/exercise program recommendation - Conservative stepwise pain medicine strategy with multi-disciplinary approach - Recommend healthy lifestyle strategies and compensatory methods as needed Medical Devices Implanted Type Area Mortgage Loan Underwriter Device Identifier Shelf Expiration Date Model / Serial / Lot Pacemaker Chest Insurance [employer] MEDICARE IDPA [facility] Care Teams Scale Assembly Set Up Worker Relationship Specialty Start Date End Date Robert Bernard MD PCP - General 10/06/16 Mrak Mccurdy MD [address] [place] [address] Referring Physician Cardiology 01/21/20
--- OUTSIDE RECORDS SUMMARY | 2024-10-29 17:08 | XMS_ITS | Encounter Summary ---
Author Organization [facility] Address [address] [place] [address] Phone Care Team Providers Care Huc Ob Name Role Phone Robert Bernard MD Primary Care Provider Mark Mccurdy MD Unavailable [phone] Encounter Details Date Type Department Care Team (Late st Contact Info) Description 09/24/2015 Orders Only [facility] ProviderToney MD [address] [place], [place] [phone] Social History Tobacco Use Types Packs/Day Years Used Date Smoking Tobacco: Never Assessed Comments Unknown Sex and Gender Information Value Date Recorded Sex Assigned at Not on file Legal Sex Female 5:12 AM PRODUCT SAFETY TESTER Gender Identity Not on file Sexual [...] on filedocumented in this encounter Care Teams Huc Ob Relationship Specialty Start Date End Date Robert Bernard MD PCP - General 10/06/16 Mark Mccurdy MD [address] [facility] [address] [place] [address] Referring Physician Cardiology 01/21/20 documented as of this encounter
--- OUTSIDE RECORDS SUMMARY | 2024-10-29 17:08 | XMS_ITS | Referral Summary ---
Author Organization [facility] Address [address] [place] [address] Care Team Providers Care Collections Analyst Name Role Phone Robert Bernard MD Primary Care Provider Mark Mccurdy MD Unavailable [phone] Encounters Date Type Department Care Team Description 10/17/2024 Orders Only [facility] [address] [place] [address] Advanced Medicine [facility] [place] [address] [place] [address] Hema Norton MD PhD Presence of cardiac pacemaker (Primary Dx) 10/17/2024 Telephone [facility] [address] [place] [address] [place] [address] [place] [address] Hema Norton MD PhD 09/09/2024 Telephone [facility] [address] [place] [address] [place] [address] [place] [address] Hema Norton MD PhD from Last 3 [...] on file Legal Sex Female 5:12 AM WEAVER TIRE CORD Gender Identity Not on file Sexual Orientation Not on file Last Filed Vital Signs Vital Sign Reading Time Taken Comments Blood Pressure 115/79 02/26/2023 8:44 AM CDT Pulse 83 02/26/2023 8:44 AM CDT Temperature 36.5 C (97.7 F) 03/30/2021 10:39 AM WEAVER TIRE CORD Respiratory Rate 16 03/30/2021 10:39 AM WEAVER TIRE CORD Oxygen Saturation 99% 02/26/2023 8:44 AM CDT [...] Chronic Care Management No change(03/30 10:46 AM WEAVER TIRE CORD) No Gillian Vela RN Note: Problem: Chronic Pain Goals: 1. Minimize further functional decline 2. Maximize quality of life 3. Control pain Strategies: - Activity/exercise program recommendation - Conservative stepwise pain medicine strategy with multi-disciplinary approach - Recommend healthy lifestyle strategies and compensatory methods as needed Medical Devices Implanted Type Area Automotive Customer Experience Advisor Device Identifier Shelf Expiration Date Model / Serial / Lot Pacemaker Chest Insurance [employer] MEDICARE [facility] Address: [address] [address] [place] [address] [employer] [facility] Care Teams Collections Analyst Relationship Specialty Start Date End Date Robert Bernard MD PCP - General 10/06/16 Mark cMcurdy MD [address] [place] [address] Referring Physician Cardiology 01/21/20
--- OUTSIDE RECORDS SUMMARY | 2024-10-29 17:08 | XMS_ITS | Encounter Summary ---
Author Organization [facility] [facility] Address [address] [place] [address] Phone Care Team Providers Care Commercial Administrator Name Role Phone Robert Bernard MD Primary Care Provider Mark Mccurdy MD Unavailable [phone] Encounter Details Date Type Department Care Team (Late st Contact Info) Description 12/10/2015 Orders Only [facility]INCONV Provider, MD Toney [address] [place] [address] Social History Tobacco Use Types Packs/Day Years Used Date Smoking Tobacco: Never Assessed Comments Unknown Sex and Gender Information Value Date Recorded Sex Assigned at Not on file 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
--- OUTSIDE RECORDS SUMMARY | 2024-10-29 17:08 | XMS_ITS | Encounter Summary ---
Author Organization [facility] Address [address] [place] [address] Phone Care Team Providers Care Lay Midwife Name Role Phone Robert Bernard MD Primary Care Provider Mark Mccurdy MD Unavailable [phone] Encounter Details Date Type Department Care Team (Late st Contact Info) Description 09/26/2014 Orders Only [facility] CLINCONV ProviderToney MD [address] [place], [place] [phone] Social History Tobacco Use Types Packs/Day Years Used Date Smoking Tobacco: Never Assessed Comments Unknown Sex and Gender Information Value Date Recorded Sex Assigned at Not on file 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
--- OUTSIDE RECORDS SUMMARY | 2024-10-29 17:08 | XMS_ITS | Encounter Summary ---
Author Organization [facility] Address [address] [place] [address] Phone Care Team Providers Care Conference Assistant Name Role Phone Robert Bernard MD Primary Care Provider Mark Mccurdy MD Unavailable Encounter Details Date Type Department Care Team (Late st Contact Info) Description 11/05/2016 Orders Only [facility] CLINCONV ProviderToney MD [address] [place], [place] [phone] Social History Tobacco Use Types Packs/Day Years Used Date Smoking Tobacco: Never Assessed Comments Unknown Sex and Gender Information Value Date Recorded Sex Assigned at Not on file 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
--- OUTSIDE RECORDS SUMMARY | 2024-10-29 17:08 | XMS_ITS | Encounter Summary ---
Author Organization [facility] Address [address] [place] [address] Phone Care Team Providers Care Meter Inspector Name Role Phone Robert Bernard MD Primary Care Provider Mark Mccurdy MD Unavailable [phone] Encounter Details Date Type Department Care Team (Late st Contact Info) Description 10/19/2017 Telephone [facility] Count includes the 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
--- OUTSIDE RECORDS SUMMARY | 2024-10-29 17:08 | XMS_ITS | Encounter Summary ---
Author Organization [facility] [facility] Address [address] [place] [address] Phone Care Team Providers Care Community Service Patrol Officer Name Role Phone Robert Bernard MD Primary Care Provider Mark Mccurdy MD Unavailable [phone] Encounter Details Date Type Department Care Team (Latest Contact Info) Description 12/04/2016 Orders Only [facility] CONVERSION Scanning, Provider Social History Tobacco Use Types Packs/Day Years Used Date Smoking Tobacco: Never Assessed Comments Unknown Sex and Gender Information Value Date Recorded Sex Assigned at Not on file 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
--- OUTSIDE RECORDS SUMMARY | 2024-10-29 17:08 | XMS_ITS | Encounter Summary ---
Author Organization [facility] Address [address] [place] [address] Phone Care Team Providers Care Toe Trimmer Name Role Phone Robert Bernard MD Primary Care Provider Mark Mccurdy MD Unavailable [phone] Encounter Details Date Type Department Care Team (Late st Contact Info) Description 04/14/2015 Orders Only [facility] CLINCONV Provider, MD Toney [address] [place] [address] Social History Tobacco Use Types Packs/Day Years Used Date Smoking Tobacco: Never Assessed Comments Unknown Sex and Gender Information Value Date Recorded Sex Assigned at Not on file 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
--- OUTSIDE RECORDS SUMMARY | 2024-10-29 17:08 | XMS_ITS | Encounter Summary ---
Author Organization [facility] Address [address] [place] [address] Phone Care Team Providers Care Cat Swamper Name Role Phone Robert Bernard MD Primary Care Provider Mark Mccurdy MD Unavailable [phone] Encounter Details Date Type Department Care Team (Late st Contact Info) Description 06/06/2015 Orders Only [facility] CLINCONV ProviderToney MD [address] [place], [place] [phone] Social History Tobacco Use Types Packs/Day Years Used Date Smoking Tobacco: Never Assessed Comments Unknown Sex and Gender Information Value Date Recorded Sex Assigned at Not on file 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
--- OUTSIDE RECORDS SUMMARY | 2024-10-29 17:08 | XMS_ITS | Encounter Summary ---
Author Organization [facility] Address [address] [place] [address] Phone Care Team Providers Care Finisher Special Stocks Name Role Phone Robert Bernard MD Primary Care Provider Mark Mccurdy MD Unavailable [phone] Encounter Details Date Type Department Care Team (Late st Contact Info) Description 07/03/2015 Orders Only [facility] CLINCONV ProviderToney MD [address] [place], [place] [phone] Social History Tobacco Use Types Packs/Day Years Used Date Smoking Tobacco: Never Assessed Comments Unknown Sex and Gender Information Value Date Recorded Sex Assigned at Not on file 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
[2024-10-29 18:03] LABS: Basophils Percent Auto 0.2 % (0.2-1.2); Eosinophils Absolute Auto 0.2 K/mm3 (0-0.3); Eosinophils Percent Auto 2.1 % (0-4.4); Hematocrit 47.6 % (37.0-47.0); Hemoglobin 15.9 g/dL (12.0-15.0); Immature Granulocyte Absolute 0.02 K/mm3 (0.00-0.031); Immature Granulocyte Percent A 0.2 % (0-0.5); Lymphocytes Absolute Auto 2.11 K/mm3 (0.9-3.2); Lymphocytes Percent Auto 24.7 % (18.3-44.2); Mean Corpuscular HGB Conc 33.4 g/dl (32-36); Mean Corpuscular Hemoglobin 31.5 pg (26-34); Mean Corpuscular Volume 94.3 fl (80-100); Mean Platelet Volume 10.3 fl (7.4-10.4); Monocytes Absolute Auto 0.5 K/mm3 (0.1-0.6); Monocytes Percent Auto 5.7 % (2.6-8.5); Neutrophils Absolute Auto 5.7 K/mm3 (1.3-6.7); Neutrophils Percent Auto 67.1 % (45.5-73.1); Platelet Count Result 241 k/mm3 (150-375); Red Blood Count 5.05 M/mm3 (4.2-5.4); Red Cell Distribution Width 12.4 % (11.5-14.5); White Blood Count 8.6 K/mm3 (4.5-10.0)
[2024-10-29] MEDS: ONDANSETRON INJ 4 MG/2 ML VIAL IV PUSH (18:04)
[2024-10-29 18:12] LABS: Alanine Aminotransferase 21 U/L (6-35); Albumin Level 4.4 g/dL (3.5-5.1); Alkaline Phosphatase 86 U/L (38-126); Anion Gap 11 mmol/L (4-12); Aspartate Amino Transferase 27 U/L (14-36); Bilirubin,Total 0.6 mg/dL (0.2-1.3); Blood Urea Nitrogen 10 mg/dL (7-17); Calcium 9.8 mg/dL (8.4-10.2); Carbon Dioxide 26 mmol/L (22-30); Chloride 104 mmol/L (98-107); Estimated Glomerular Filt Rate > 60; Glucose 140 mg/dL (65-110); Potassium 3.4 mmol/L (3.4-5.0); Sodium 141 mmol/L (137-145); Total Protein 8.1 g/dL (6.3-8.2)
[2024-10-29 18:14] LABS: Prothrombin Time 13.4 Seconds (11.1-14.7)
[2024-10-29 18:15] LABS: Partial Thromboplastin Time 28.5 Seconds (22.3-36.8)
[2024-10-29 18:24] LABS: Troponin I < 0.012 ng/mL (0.000-0.034)
--- NOTE | 2024-10-29 19:20 | ED.GENADULT ---
HPI - General Adult General Chief complaint: Weakness Stated complaint: Left sided weakness x several days, CVA hx Time Seen by Provider: 10/29/24 16:29 Source: patient Mode of arrival: EMS Limitations: no limitations History of Present Illness HPI narrative: 59 years old white female came to the ED by private car complaining of numbness of the left hand started 2 days ago, today numbness went up involving the whole left upper extremity. Steady, no aggravating or relieving factors, patient reports intermittent headache. She denies any fever, chills, nausea, vomiting. 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, was hospitalized at [facility], possible hole in the lung and in the heart patient currently on Plavix, metoprolol and atorvastatin she denies smoking or drinking or using drugs Related Data Allergies Allergy/AdvReac Type Severity Reaction Status Date / Time No Known Allergies Allergy Verified 10/29/24 15:17 Review of Systems Review of Systems: All systems reviewed & are unremarkable except as noted in HPI and below Exam Narrative: General appearance: Well-developed, well-nourished Skin: Normal color Head: Normocephalic, nontraumatic Eyes: Clear conjunctiva ENT: Oropharynx normal, ears normal, nose normal Neck: Supple, nontender Chest and respiratory: Airway patent, no respiratory distress, no accessory muscle use Heart: Regular rate/rhythm Abdomen: Soft, nontender, no organomegaly, quiet bowel sounds Vascular: Normal peripheral pulses, normal capillary refill. Musculoskeletal: Normal range of motion, nontender back Neurologic: Alert and oriented ?3, FELT STRIP FINISHER is normal as tested, no gross motor deficit Course Consultations Consultation #1: DR SOTO, NEUROLOGIST AT [facility] WHO RECOMMENDS TO ADMIT PATIENT IN OUR FACILITY FOR MRI OF THE BRAIN TOMORROW. HIS TELLING ME THAT PATIENT OLD RECORDS SHOWING THAT SHE HAD AVM AND PFO Date: 10/29/24 Time: 21:09 Consultation #2: DR IGNACIO IS TELLING ME THAT PATIENT HAVE PACEMAKER AND WE CANNOT DO MRI OF THE BRAIN IN THIS SITUATION. Date: 10/29/24 Consultation #3: DR SOTO DECLINED TO ACCEPT PATIENT TRANSFERRED TO [facility]. HE REPORTED THAT PATIENT NEED MRI OF THE BRAIN AND ECHO OF THE HEART WHICH CAN BE DONE IN MY FACILITY DR. VEE IN DECLINED TO ACCEPT THE PATIENT ADMISSION BECAUSE MRI CANNOT BE DONE ON ANY PATIENT WITH PACEMAKER. Date: 10/29/24 Additional Consultation(s): DR LAZARO NEUROLOGIST AT [facility] WHO ACCEPTED PATIENT TRANSFER. Vital Signs Vital signs: Vital Signs Temperature 36.3 C L 10/29/24 15:39 Pulse Rate 81 10/29/24 15:39 Respiratory Rate 16 10/29/24 15:39 Blood Pressure 129/88 10/29/24 15:39 Pulse Oximetry 97 10/29/24 15:39 Temperature 36.5 C 10/29/24 17:37 Pulse Rate 70 10/29/24 19:20 Respiratory Rate 18 10/29/24 19:20 Blood Pressure 120/75 10/29/24 19:20 Pulse Oximetry 100 10/29/24 19:20 Oxygen Delivery Room Air 10/29/24 19:20 Medical Decision Making MDM Narrative Medical decision making narrative: Patient presents with paresthesias left upper extremity Vital signs are stable Physical examination showing a pacemaker in place otherwise insignificant finding Differential diagnose left upper extremity paresthesia could be secondary to new stroke. Blood workup today includes CBC, CMP, coags, TSH and troponin showed insignificant abnormality Chest x-ray showed no acute abnormality CT head without contrast showed possible Chiari malformation DR SOTO, THE NEUROLOGIST ON-CALL AT [facility] REQUESTED TO ADMIT PATIENT TO OUR FACILITY FOR BRAIN MRI. TRANSFERRING THE PATIENT AT THIS TIME CONSIDERED ABUSE TO THE RESOURCES. PATIENT WAS ACCEPTED TO TRANSFERRED TO [facility]/ Differential Diagnosis Differential Diagnosis: As above Vital Signs Vital Signs: Vital Signs Temperature 36.3 C L 10/29/24 15:39 Pulse Rate 81 10/29/24 15:39 Respiratory Rate 16 10/29/24 15:39 Blood Pressure 129/88 10/29/24 15:39 Pulse Oximetry 97 10/29/24 15:39 Temperature 36.5 C 10/29/24 17:37 Pulse Rate 70 10/29/24 19:20 Respiratory Rate 18 10/29/24 19:20 Blood Pressure 120/75 10/29/24 19:20 Pulse Oximetry 100 10/29/24 19:20 Oxygen Delivery Room Air 10/29/24 19:20 Lab Data 10/29/24 17:51 10/29/24 17:51 Labs: Lab Results 10/29/24 10/29/24 10/29/24 Range/Units 17:50 17:51 22:11 WBC 8.6 (4.5-10.0) K/mm3 RBC 5.05 (4.2-5.4) M/mm3 Hgb 15.9 H (12.0-15.0) g/dL Hct 47.6 H (37.0-47.0) % MCV 94.3 (80-100) fl MCH 31.5 (26-34) pg MCHC 33.4 (32-36) g/dl RDW 12.4 (11.5-14.5) % Plt Count 241 (150-375) k/mm3 MPV 10.3 (7.4-10.4) fl Immature Gran % (Auto) 0.2 (0-0.5) % Neut % (Auto) 67.1 (45.5-73.1) % Lymph % (Auto) 24.7 (18.3-44.2) % [place] % (Auto) 5.7 (2.6-8.5) % Eos % (Auto) 2.1 (0-4.4) % Baso % (Auto) 0.2 (0.2-1.2) % Lymph # (Auto) 2.11 (0.9-3.2) K/mm3 [place] # (Auto) 0.5 (0.1-0.6) K/mm3 Eos # (Auto) 0.2 (0-0.3) K/mm3 Baso # (Auto) 0.0 (0.0-0.1) K/mm3 Abs Immat Gran (auto) 0.02 (0.00-0.031) K/mm3 Absolute Neuts (auto) 5.7 (1.3-6.7) K/mm3 Absolute Nucleated RBC 0.000 (0.0-0.012) K/mm3 Nucleated RBC % 0.0 (0.0-0.2) % PT 13.4 (11.1-14.7) Seconds INR 1.0 APTT 28.5 (22.3-36.8) Seconds Sodium 141 (137-145) mmol/L Potassium 3.4 (3.4-5.0) mmol/L Chloride 104 (98-107) mmol/L Carbon Dioxide 26 (22-30) mmol/L Anion Gap 11 (4-12) mmol/L BUN 10 (7-17) mg/dL Creatinine 0.73 (0.7-1.0) mg/dL Estim Creat Clear Calc Not Reportable Estimated GFR > 60 (59 - ) Glucose 140 H (65-110) mg/dL Calcium 9.8 (8.4-10.2) mg/dL Total Bilirubin 0.6 (0.2-1.3) mg/dL AST 27 (14-36) U/L ALT 21 (6-35) U/L Alkaline Phosphatase 86 (38-126) U/L Troponin I < 0.012 (0.000-0.034) ng/mL Total Protein 8.1 (6.3-8.2) g/dL Albumin 4.4 (3.5-5.1) g/dL TSH 1.840 (0.465-4.680) uIU/mL Urine Color Yellow (Yellow) Urine Appearance Clear (Clear) Urine pH 5.5 (5.0-9.0) Ur Specific [place] 1.008 (1.001-1.035) Urine Protein Negative (Negative) mg/dL Urine Glucose (UA) Negative (Negative) mg/dL Urine Ketones Negative (Negative) mg/dL Ur Blood (Man) Negative (Negative) Urine Nitrate Negative (Negative) Urine Bilirubin Negative (Negative) Urine Urobilinogen 0.2 (<2.0) mg/dL Leukocyte Esterase Rfl Negative (Negative) SUJIT/UL Imaging Data Radiologist's impression: Impressions Head CT 10/29/24 16:53 IMPRESSION: No acute intracranial findings. Tonsillar ectopia is seen in the left side suggestive of Chiari I malformation. Chest X-Ray 10/29/24 16:58 IMPRESSION: No focal infiltrate or effusion. Critical Care Time Critical Care Time Critical Care Time: Yes Total Critical Care Time: 60 Discharge Plan Discharge Clinical Impression: Paresthesia of arm Patient Disposition: Acute Care Hospital Condition: Stable Patient Language: Greenlandic Follow-up/Referrals: Memo,Ela Marin MD [Primary Care Provider] - Quality Stroke Scale Stroke Scale 1: Stroke scale date:: 10/29/24 1a Level of consciousness: alert-0 1b Level of consciousness questions: answers both correctly-0 1c Level of consciousness commands: obeys both correctly-0 2 Best gaze: normal-0 3 Visual: no visual loss-0 4 Facial palsy: normal-0 5a Motor: left arm: no drift-0 5b Motor: right arm: no drift-0 6a Motor: left leg: no drift-0 6b Motor: right leg: no drift-0 7 Limb ataxia: absent-0 8 Sensory: normal-0 9 Best language: no aphasia-0 10 Dysarthria: normal-0 11 Extinction and inattention: no abnormality-0 Level:: 0
--- OUTSIDE RECORDS SUMMARY | 2024-10-29 20:31 | XMS_ITS | Encounter Summary ---
Author Organization [facility] Address [address] [place] [address] Phone Care Team Providers Care Cutch Cleaner Name Role Phone Robert Bernard MD Primary Care Provider Mark Mccurdy MD Unavailable [phone] Encounter Details Date Type Department Care Team (Late st Contact Info) Description 07/15/2014 Orders Only [facility] CAR CLINCONV ProviderToney MD [address] [place], [place] [phone] Social History Tobacco Use Types Packs/Day Years Used Date Smoking Tobacco: Never Assessed Comments Unknown Sex and Gender Information Value Date Recorded Sex Assigned at Not on file 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
--- OUTSIDE RECORDS SUMMARY | 2024-10-29 20:31 | XMS_ITS | Encounter Summary ---
Author Organization [facility] Address [address] [place] [address] Phone Care Team Providers Care Film Examiner Name Role Phone Robert Bernard MD Primary Care Provider Mark Mccurdy MD Unavailable [phone] Encounter Details Date Type Department Care Team (Late st Contact Info) Description 02/05/2015 Orders Only [facility] CAR CLINCONV ProviderToney MD [address] [place], [place] [phone] Social History Tobacco Use Types Packs/Day Years Used Date Smoking Tobacco: Never Assessed Comments Unknown Sex and Gender Information Value Date Recorded Sex Assigned at Not on file 

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
--- OUTSIDE RECORDS SUMMARY | 2024-10-29 20:31 | XMS_ITS | Encounter Summary ---
Author Organization [facility] Healthcare Address [address] [place] [address] Care Team Providers Care Recycling Operations Manager Name Role Phone Robert Bernard MD Primary Care Provider Mark Mccurdy MD Unavailable [phone] Reason for Visit * Reason Onset Date Comments Med Refill 10/27/2019 Encounter Details Date Type Department Care Team (Late st Contact Info) Description 10/27/2019 Telephone [facility] [address] [facility] [address] [place] [address] Olamide Pruitt MD [address] [facility] [address] [place] [address] Med Refill Social History Tobacco Use Types [...] on file Legal Sex Female 5:12 AM TRANSPORTATION DEPARTMENT HEAD Gender Identity Not on file Sexual Orientation Not on file documented as of this encounter Functional Status documented as of this encounter Plan of Treatment Not on file documented as of this encounter Goals Goal Patient Goal Type Associated Problems Recent Progress Patient-Stated? Author CCM Chronic Pain Care Plan Chronic Care Management No change(03/30 10:46 AM TRANSPORTATION DEPARTMENT HEAD) Gillian Segovia, RN Note: Problem: Chronic Pain Goals: 1. Minimize further functional decline 2. Maximize quality of life 3. Control pain Strategies: - Activity/exercise program recommendation - Conservative stepwise pain medicine strategy with multi-disciplinary approach - Recommend healthy lifestyle strategies and compensatory methods as needed documented as of this encounter Visit Diagnoses Not on filedocumented in this encounter Care Teams Recycling Operations Manager Relationship Specialty Start Date End Date Robert Bernard MD PCP - General 10/06/16 Mark Mccurdy MD [address] [place] [address] Referring Physician Cardiology 01/21/20 documented as of this encounter
--- OUTSIDE RECORDS SUMMARY | 2024-10-29 20:31 | XMS_ITS | Encounter Summary ---
Author Organization [facility] Address [address] [place] [address] Phone Care Team Providers Care Braille Operator Name Role Phone Robert Bernard MD Primary Care Provider Mark Mccurdy MD Unavailable [phone] Encounter Details Date Type Department Care Team (Late st Contact Info) Description 12/10/2015 Orders Only [facility] CLINCONV Provider, MD Toney [address] [place] [address] Social History Tobacco Use Types Packs/Day Years Used Date Smoking Tobacco: Never Assessed Comments Unknown Sex and Gender Information Value Date Recorded Sex Assigned at Not on file 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
--- OUTSIDE RECORDS SUMMARY | 2024-10-29 20:31 | XMS_ITS | Encounter Summary ---
Author Organization [facility] Address [address] [place] [address] Phone Care Team Providers Care Odd Bundle Worker Name Role Phone Robert Bernard MD Primary Care Provider Mark Mccurdy MD Unavailable Encounter Details Date Type Department Care Team (Late st Contact Info) Description 02/01/2015 Orders Only [facility] CLINCONV ProviderToney MD [address] [place], [place] [phone] Social History Tobacco Use Types Packs/Day Years Used Date Smoking Tobacco: Never Assessed Comments Unknown Sex and Gender Information Value Date Recorded Sex Assigned at Not on file Legal Sex Female 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
--- OUTSIDE RECORDS SUMMARY | 2024-10-29 20:31 | XMS_ITS | Encounter Summary ---
Author Organization [facility] Address [address] [place] [address] Phone Care Team Providers Care Dental Assisting Instructor Name Role Phone Robert Bernard MD Primary Care Provider Mark Mccurdy MD Unavailable [phone] Encounter Details Date Type Department Care Team (Late st Contact Info) Description 07/03/2015 Orders Only [facility] CLINCONV ProviderToney MD [address] [place], [place] [phone] Social History Tobacco Use Types Packs/Day Years Used Date Smoking Tobacco: Never Assessed Comments Unknown Sex and Gender Information Value Date Recorded Sex Assigned at Not on file 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
--- OUTSIDE RECORDS SUMMARY | 2024-10-29 20:31 | XMS_ITS | Encounter Summary ---
Author Organization [facility] [employer] of [facility] Address [address] [place] [address] Phone Care Team Providers Care Loan Officer Name Role Phone Robert Bernard MD Primary Care Provider Mark Mccurdy MD Unavailable [phone] Encounter Details Date Type Department Care Team (Late st Contact Info) Description 07/30/2014 Orders Only [facility] CLINCONV Provider, MD Toney [address] [place] [address] Social History Tobacco Use Types Packs/Day Years Used Date Smoking Tobacco: Never Assessed Comments Unknown Sex and Gender Information Value Date Recorded Sex Assigned at Not on file 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
--- OUTSIDE RECORDS SUMMARY | 2024-10-29 20:31 | XMS_ITS | Encounter Summary ---
Author Organization [facility] Address [address] [place] [address] Phone Care Team Providers Care Pleating Supervisor Name Role Phone Robert Bernard MD Primary Care Provider Mark Mccurdy MD Unavailable [phone] Encounter Details Date Type Department Care Team (Late st Contact Info) Description 06/06/2015 Orders Only [facility] CLINCONV ProviderToney MD [address] [place], [place] [phone] Social History Tobacco Use Types Packs/Day Years Used Date Smoking Tobacco: Never Assessed Comments Unknown Sex and Gender Information Value Date Recorded Sex Assigned at Not on file 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
--- OUTSIDE RECORDS SUMMARY | 2024-10-29 20:31 | XMS_ITS | Clinical Summary ---
Author Organization [facility] Address [address] [place] [address] Care Team Providers Care Parts Room Clerk Name Role Phone Robert Bernard MD Primary Care Provider Mark Mccurdy MD Unavailable [phone] Allergies No known active allergies Medications [...] Department Care Team Description 10/17/2024 Orders Only [facility] Cardiology [address] [facility] 8th [place] [address] [place] [address] Hema Norton MD PhD Presence of cardiac pacemaker (Primary Dx) 10/17/2024 Telephone [facility] Cardiology [address] [place] [address] 8th [place] [address] [place] [address] Hema Norton MD PhD 09/09/2024 Telephone [facility]iology [address] [place] [address] 8th [place] [address] [place] [address] Hema Norton MD PhD from Last 3 [...] on file Legal Sex Female 5:12 AM HELPER ANIMAL LABORATORY Gender Identity Not on file Sexual Orientation Not on file Obstetrics History Last Filed Vital Signs Vital Sign Reading Time Taken Comments Blood Pressure 115/79 02/26/2023 8:44 AM CDT Pulse 83 02/26/2023 8:44 AM CDT Temperature 36.5 C (97.7 F) 03/30/2021 10:39 AM HELPER ANIMAL LABORATORY Respiratory Rate 16 03/30/2021 10:39 AM HELPER ANIMAL LABORATORY Oxygen Saturation 99% 02/26/2023 8:44 AM CDT [...] Chronic Care Management No change(03/30 10:46 AM HELPER ANIMAL LABORATORY) No Gillian Vela, RN Note: Problem: Chronic Pain Goals: 1. Minimize further functional decline 2. Maximize quality of life 3. Control pain Strategies: - Activity/exercise program recommendation - Conservative stepwise pain medicine strategy with multi-disciplinary approach - Recommend healthy lifestyle strategies and compensatory methods as needed Medical Devices Implanted Type Area Mental Health Practitioner Device Identifier Shelf Expiration Date Model / Serial / Lot Pacemaker Chest Insurance [employer] MEDICARE IDPA [facility] PLAN Care Teams Parts Room Clerk Relationship Specialty Start Date End Date Robert Bernard MD PCP - General 10/06/16 Mark Mccurdy MD [address] [place] [address] Referring Physician Cardiology 01/21/20
--- OUTSIDE RECORDS SUMMARY | 2024-10-29 20:31 | XMS_ITS | Encounter Summary ---
Author Organization [facility] Address [address] [place] [address] Phone Care Team Providers Care Dive Superintendent Name Role Phone Robert Bernard MD Primary Care Provider Mark Mccurdy MD Unavailable [phone] Encounter Details Date Type Department Care Team (Late st Contact Info) Description 12/29/2014 Orders Only [facility] CLIN[facility] ProviderToney MD [address] [place], [place] [phone] Social History Tobacco Use Types Packs/Day Years Used Date Smoking Tobacco: Never Assessed Comments Unknown Sex and Gender Information Value Date Recorded Sex Assigned at Not on file 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
--- OUTSIDE RECORDS SUMMARY | 2024-10-29 20:31 | XMS_ITS | Encounter Summary ---
Author Organization [facility] [employer] [facility] Address [address] [place] [address] Phone Care Team Providers Care Senior Regulatory Affairs Specialist Name Role Phone Robert Bernard MD Primary Care Provider Mark Mccurdy MD Unavailable [phone] Encounter Details Date Type Department Care Team (Late st Contact Info) Description 04/14/2015 Orders Only [facility] Provider, MD Toney [address] [place] [address] Social History Tobacco Use Types Packs/Day Years Used Date Smoking Tobacco: Never Assessed Comments Unknown Sex and Gender Information Value Date Recorded Sex Assigned at Not on file Legal Sex Female 5:12 AM FOOD SERVICE TEAM MEMBER Gender Identity Not on file Sexual Orientation [...] filedocumented in this encounter Care Teams Senior Regulatory Affairs Specialist Relationship Specialty Start Date End Date Robert Bernard MD PCP - General 10/06/16 Mark Mccurdy MD [address] [place] [address] Referring Physician Cardiology 01/21/20 documented as of this encounter
--- OUTSIDE RECORDS SUMMARY | 2024-10-29 20:31 | XMS_ITS | Encounter Summary ---
Author Organization [facility] [employer] of [facility] Address [address] [place] [address] Phone Care Team Providers Care Securities Analyst Name Role Phone Robert Bernard MD Primary Care Provider Mark Mccurdy MD Unavailable [phone] Encounter Details Date Type Department Care Team (Late st Contact Info) Description 07/28/2014 Orders Only [facility]IN[facility] Provider, MD Toney [address] [place] [address] Social History Tobacco Use Types Packs/Day Years Used Date Smoking Tobacco: Never Assessed Comments Unknown Sex and Gender Information Value Date Recorded Sex Assigned at Not on file Legal Sex Female 5:12 AM SOLDER DEPOSIT OPERATOR Gender Identity Not on file Sexual [...] on filedocumented in this encounter Care Teams Securities Analyst Relationship Specialty Start Date End Date Robert Bernard MD PCP - General 10/06/16 Mark Mccurdy MD [address] [place] [address] Referring Physician Cardiology 01/21/20 documented as of this encounter
--- OUTSIDE RECORDS SUMMARY | 2024-10-29 20:31 | XMS_ITS | Encounter Summary ---
Author Organization [facility] [employer] [facility] Address [address] [place] [address] Phone Care Team Providers Care Technology Lab Teacher Name Role Phone Robert Bernard MD Primary Care Provider Mark Mccurdy MD Unavailable [phone] Encounter Details Date Type Department Care Team (Latest Contact Info) Description 12/04/2016 Orders Only [facility] CONVERSION Scanning, Provider Social History Tobacco Use Types Packs/Day Years Used Date Smoking Tobacco: Never Assessed Comments Unknown Sex and Gender Information Value Date Recorded Sex Assigned at Not on file Legal Sex Female 5:12 AM EMBOSSING PRESS OPERATOR APPRENTICE Gender Identity Not on file Sexual [...] on filedocumented in this encounter Care Teams Technology Lab Teacher Relationship Specialty Start Date End Date Robert Bernard MD PCP - General 10/06/16 Mark Mccurdy MD [address] [place] [address] Referring Physician Cardiology 01/21/20 documented as of this encounter
--- OUTSIDE RECORDS SUMMARY | 2024-10-29 20:31 | XMS_ITS | Encounter Summary ---
Author Organization [facility] Address [address] [place] [address] Phone Care Team Providers Care Agriculture Instructor Name Role Phone Robert Bernard MD Primary Care Provider Mark Mccurdy MD Unavailable [phone] Encounter Details Date Type Department Care Team (Late st Contact Info) Description 11/05/2016 Orders Only [facility] CLINCONV ProviderToney MD [address] [place], [place] [phone] Social History Tobacco Use Types Packs/Day Years Used Date Smoking Tobacco: Never Assessed Comments Unknown Sex and Gender Information Value Date Recorded Sex Assigned at Not on file Legal Sex Female 5:12 AM HOSPICE PLAN ADMINISTRATOR Gender Identity Not on file Sexual Orientation [...] on filedocumented in this encounter Care Teams Agriculture Instructor Relationship Specialty Start Date End Date Robert Bernard MD PCP - General 10/06/16 Mark Mccurdy MD [address] [facility] [address] [place] [address] Referring Physician Cardiology 01/21/20 documented as of this encounter
--- OUTSIDE RECORDS SUMMARY | 2024-10-29 20:31 | XMS_ITS | Encounter Summary ---
Author Organization [facility] Address [address] [place] [address] Phone Care Team Providers Care Utility Forester Name Role Phone Robert Bernard MD Primary Care Provider Mark Mccurdy MD Unavailable [phone] Encounter Details Date Type Department Care Team (Late st Contact Info) Description 09/24/2015 Orders Only [facility] CLINCONV ProviderToney MD [address] [place], [place] [phone] Social History Tobacco Use Types Packs/Day Years Used Date Smoking Tobacco: Never Assessed Comments Unknown Sex and Gender Information Value Date Recorded Sex Assigned at Not on file Legal Sex Female 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
--- OUTSIDE RECORDS SUMMARY | 2024-10-29 20:31 | XMS_ITS | Encounter Summary ---
Author Organization [facility] Address [address] [place] [address] Phone Care Team Providers Care Bread Slicer Machine Name Role Phone Robert Bernard MD Primary Care Provider Mark Mccurdy MD Unavailable [phone] Encounter Details Date Type Department Care Team (Late st Contact Info) Description 09/05/2014 Orders Only [facility] CLINCONV ProviderToney MD [address] [place], [place] [phone] Social History Tobacco Use Types Packs/Day Years Used Date Smoking Tobacco: Never Assessed Comments Unknown Sex and Gender Information Value Date Recorded Sex Assigned at Not on file Legal Sex Female 5:12 AM OPTIMIZATION CONSULTANT Gender Identity Not on file Sexual [...] on filedocumented in this encounter Care Teams Bread Slicer Machine Relationship Specialty Start Date End Date Robert Bernard MD PCP - General 10/06/16 Mark Mccurdy MD [address] [facility] [address] [place] [address] Referring Physician Cardiology 01/21/20 documented as of this encounter
--- OUTSIDE RECORDS SUMMARY | 2024-10-29 20:31 | XMS_ITS | Encounter Summary ---
Author Organization [facility] Address [address] [place] [address] Phone Care Team Providers Care Brand Advocate Name Role Phone Robert Bernard MD Primary Care Provider Mark Mccurdy MD Unavailable [phone] Encounter Details Date Type Department Care Team (Late st Contact Info) Description 07/16/2016 Orders Only [facility] CLINCONV ProviderToney MD [address] [place], [place] [phone] Social History Tobacco Use Types Packs/Day Years Used Date Smoking Tobacco: Never Assessed Comments Unknown Sex and Gender Information Value Date Recorded Sex Assigned at Not on file Legal Sex Female 5:12 AM CONTROL CLERK HEAD Gender Identity Not on file Sexual [...] on filedocumented in this encounter Care Teams Brand Advocate Relationship Specialty Start Date End Date Robert Bernard MD PCP - General 10/06/16 Mark Mccurdy MD [address] [facility] [address] [place] [address] Referring Physician Cardiology 01/21/20 documented as of this encounter
--- OUTSIDE RECORDS SUMMARY | 2024-10-29 20:31 | XMS_ITS | Referral Summary ---
Author Organization [facility] Address [address] [place] [address] Care Team Providers Care Life Coach Name Role Phone Robert Bernard MD Primary Care Provider [phone] Mark Mccurdy MD Unavailable [phone] Encounters Date Type Department Care Team Description 10/17/2024 Orders Only [facility] Cardiology [address] [place] [address] [address] [facility] [place] [address] [place] [address] Hema Norton MD PhD Presence of cardiac pacemaker (Primary Dx) 10/17/2024 Telephone [facility] Cardiology [address] [place] [address] [place] [address] [place] [address] Hema Norton MD PhD 09/09/2024 Telephone [facility] Cardiology [address] [place] [address] [place] [address] [place] [address] Hema Norton MD PhD from Last 3 [...] on file Legal Sex Female 5:12 AM WEAPONS OFFICER Gender Identity Not on file Sexual Orientation Not on file Last Filed Vital Signs Vital Sign Reading Time Taken Comments Blood Pressure 115/79 02/26/2023 8:44 AM CDT Pulse 83 02/26/2023 8:44 AM CDT Temperature 36.5 C (97.7 F) 03/30/2021 10:39 AM WEAPONS OFFICER Respiratory Rate 16 03/30/2021 10:39 AM WEAPONS OFFICER Oxygen Saturation 99% 02/26/2023 8:44 AM CDT [...] Chronic Care Management No change(03/30 10:46 AM WEAPONS OFFICER) No Gillian Vela RN Note: Problem: Chronic Pain Goals: 1. Minimize further functional decline 2. Maximize quality of life 3. Control pain Strategies: - Activity/exercise program recommendation - Conservative stepwise pain medicine strategy with multi-disciplinary approach - Recommend healthy lifestyle strategies and compensatory methods as needed Medical Devices Implanted Type Area Pit Slagman Device Identifier Shelf Expiration Date Model / Serial / Lot Pacemaker Chest Insurance [place] MEDICARE IDPA [facility] PLAN Care Teams Life Coach Relationship Specialty Start Date End Date Robert Bernard MD PCP - General 10/06/16 Mark Mccurdy MD [address] [place] [address] Referring Physician Cardiology 01/21/20
--- OUTSIDE RECORDS SUMMARY | 2024-10-29 20:31 | XMS_ITS | Encounter Summary ---
Author Organization [facility] Address [address] [place] [address] Phone Care Team Providers Care Advanced Manufacturing Vice President Name Role Phone Robert Bernard MD Primary Care Provider Mark Mccurdy MD Unavailable [phone] Encounter Details Date Type Department Care Team (Late st Contact Info) Description 09/26/2014 Orders Only [facility] CAR CLINCONV ProviderToney MD [address] [place], [place] [phone] Social History Tobacco Use Types Packs/Day Years Used Date Smoking Tobacco: Never Assessed Comments Unknown Sex and Gender Information Value Date Recorded Sex Assigned at Not on file Legal Sex Female 5:12 AM INSTRUCTION ASSISTANT PRINCIPAL Gender Identity Not on file Sexual Orientation [...] on filedocumented in this encounter Care Teams Advanced Manufacturing Vice President Relationship Specialty Start Date End Date Robert Bernard MD PCP - General 10/06/16 Mark Mccurdy MD [address] [facility] [address] [place] [address] Referring Physician Cardiology 01/21/20 documented as of this encounter
--- OUTSIDE RECORDS SUMMARY | 2024-10-29 20:31 | XMS_ITS | Encounter Summary ---
Author Organization [facility] Address [address] [place] [address] Phone Care Team Providers Care Electrotype Molder Name Role Phone Robert Bernard MD Primary Care Provider Mark Mccurdy MD Unavailable [phone] Encounter Details Date Type Department Care Team (Late st Contact Info) Description 10/19/2017 Telephone [facility] Cardiology [facility] 8th [place] [address] [place] [id number] Shanique Maharaj, MPH Social History Tobacco Use Types Packs/Day Years Used Date Smoking Tobacco: Former Comments Unknown Sex and Gender Information Value Date Recorded Sex Assigned at Not on file 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
[2024-10-29 22:25] LABS: Add Urine Microscopic? NO; Appearance Urine Clear (Clear); Bilirubin Urine Negative (Negative); Blood Urine Negative (Negative); Color Urine Yellow (Yellow); Glucose Urine UA Negative (Negative); Ketones Urine Negative (Negative); Leukocyte Esterase Ur Negative LEU/UL (Negative); Nitrate Urine Negative (Negative); Protein Urine Negative (Negative); Specific Grav Ur 1.008 (1.001-1.035); Urobilinogen Urine 0.2 mg/dL (<2.0); pH Urine 5.5 (5.0-9.0)
[2024-10-29] MEDS: ACETAMINOPHEN 500 MG TABLET 1000 MG PO (22:40)
[2024-10-29] MEDS: IBUPROFEN 600 MG TABLET PO (22:40)
[2024-10-30] VITALS: BP 104/60; PULSE 76; RESP 13; O2SAT 99
[2024-10-30] MEDS: ASPIRIN 81 MG CHEWABLE TABLET 324 MG PO (00:03)
--- NOTE | 2024-10-30 00:07 | PC.NURSE ---
Pt accepted to [facility] by Dr. Burnett. Room number is 752, number to the unit is [phone]. Report given to Dulce Maria DURÁN.
== END 2024-10-30 00:40 | disposition short-term general hospital (02) ==
PROVIDERS: Physician Assistant; Emergency Provider Emergency Medicine; PCP Family Medicine
DX: R20.2 Paresthesia of skin (principal); Z95.0 Presence of cardiac pacemaker; Z86.73 Personal history of transient ischemic attack (TIA), and cerebral infarction without residual deficits; Z79.02 Long term (current) use of antithrombotics/antiplatelets; Z79.899 Other long term (current) drug therapy; R94.31 Abnormal electrocardiogram [ECG] [EKG]; R93.0 Abnormal findings on diagnostic imaging of skull and head, not elsewhere classified
CPT/HCPCS: 36415; 70450; 71046; 80053; 81003; 84443; 84484; 85025; 85610; 85730; 93005; 96374; 99285; A9270; J2405

== ENCOUNTER 2025-04-17 02:47 | Emergency (ER) | payer MEDICARE, MEDICAID, SELFPAY ==
--- NOTE | 2025-04-17 02:49 | ECG_ITS ---
Test Date: 2025-04-17 02:56:01 Measurements Intervals [place] Rate: 86 P: 60 WY: 162 QRS: 3 QRSD: 83 T: 31 QT: 371 QTc: 445 Interpretive Statements SINUS RHYTHM BASELINE WANDER- V2 NORMAL ECG Compared to ECG 10/29/2024 17:44:00 No significant changes Electronically Signed On 04-17-2025 07:03:31 X RAY OPERATOR by Jose Alejandro Og D.O.
[2025-04-17 02:55] VITALS: PULSE 85; O2SAT 100
[2025-04-17 02:57] VITALS: BP 109/73; PULSE 90; RESP 16; TEMP 36.7; O2SAT 99
[2025-04-17 03:02] VITALS: PULSE 84; RESP 16; O2SAT 99
--- OUTSIDE RECORDS SUMMARY | 2025-04-17 03:12 | XMS_ITS | Encounter Summary ---
Author Organization [facility] Address [address] [place] [address] Phone Care Team Providers Care Lithographers Printer Name Role Phone Robert Bernard MD Primary Care Provider Mark Mccurdy MD Unavailable [phone] Ela Hampton MD Primary Care Provider Encounter Details Date Type Department Care Team (Late st Contact Info) Description 07/16/2016 Orders Only [facility] Provider, MD Toney [address] [place] [address] Social History Tobacco Use Types Packs/Day Years Used Date Smoking Tobacco: Never Assessed Comments Unknown Sex and Gender Information Value Date Recorded Sex Assigned at Not on file Legal Sex Female 5:12 AM AIR 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 us Historical Provider [facility] Final Result * CARDIOLOGY REPORT (07/16/2016) Anatomical Region Laterality Modality Other Narrative 07/16/2016 Ordered by an unspecified provider. us Historical Provider [facility] C[facility] Final Result documented in this encounter Visit Diagnoses Not on filedocumented in this encounter Care Teams Lithographers Printer Relationship Specialty Start Date End Date Robert Bernard MD PCP - General 10/06/16 01/06/25 Ela Hampton MD [address] [place] [address] PCP - General Family Medicine 01/07/25 Mark Mccurdy MD [address] [place] [address] Referring Physician Cardiology 01/21/20 documented as of this encounter
--- OUTSIDE RECORDS SUMMARY | 2025-04-17 03:12 | XMS_ITS | Encounter Summary ---
Author Organization [facility] [facility] Address [address] [place] [address] Phone Care Team Providers Care Window Unit Air Conditioning Mechanic Name Role Phone Robert Bernard MD Primary Care Provider Mark Mccurdy MD Unavailable Ela Hampton MD Primary Care Provider Encounter Details Date Type Department Care Team (Late st Contact Info) Description 02/05/2015 Orders Only [facility] Provider, MD Toney [address] [place] [address] Social History Tobacco Use Types Packs/Day Years Used Date Smoking Tobacco: Never Assessed Comments Unknown Sex and Gender Information Value Date Recorded Sex Assigned at Not on file Legal Sex Female 5:12 AM LABORER PIE BAKERY Gender Identity Not on file Sexual Orientation [...] Narrative 02/05/2015 Ordered by an unspecified provider. us Historical Provider CV CARDIAC [facility] Final Result documented in this encounter Visit Diagnoses Not on filedocumented in this encounter Care Teams Window Unit Air Conditioning Mechanic Relationship Specialty Start Date End Date Robert Bernard MD PCP - General 10/06/16 01/06/25 Ela Hampton MD [address] [place] [address] PCP - General Family Medicine 01/07/25 Mark Mccurdy MD [address] [place] [address] Referring Physician Cardiology 01/21/20 documented as of this encounter
--- OUTSIDE RECORDS SUMMARY | 2025-04-17 03:12 | XMS_ITS | Encounter Summary ---
Author Organization [facility] [employer] [facility] Address [address] [place] [address] Phone Care Team Providers Care Admitting Counselor Name Role Phone Robert Bernard MD Primary Care Provider Mark Mccurdy MD Unavailable [phone] Ela Hampton MD Primary Care Provider Encounter Details Date Type Department Care Team (Late st Contact Info) Description 12/29/2014 Orders Only [facility] Provider, MD Toney [address] [place] [address] Social History Tobacco Use Types Packs/Day Years Used Date Smoking Tobacco: Never Assessed Comments Unknown Sex and Gender Information Value Date Recorded Sex Assigned at Not on file 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 us Historical Provider [facility] Final Result documented in this encounter Visit Diagnoses Not on filedocumented in this encounter Care Teams Admitting Counselor Relationship Specialty Start Date End Date Robert Bernard MD PCP - General 10/06/16 01/06/25 Ela Hampton MD [address] [place] [address] PCP - General Family Medicine 01/07/25 Mark Mccurdy MD [address] [place] [address] Referring Physician Cardiology 01/21/20 documented as of this encounter
--- OUTSIDE RECORDS SUMMARY | 2025-04-17 03:12 | XMS_ITS | Encounter Summary ---
Author Organization [facility] Address [address] [place] [address] Phone Care Team Providers Care Checker Cashier Name Role Phone Robert Bernard MD Primary Care Provider Mark Mccurdy MD Unavailable [phone] Ela Hampton MD Primary Care Provider Encounter Details Date Type Department Care Team (Late st Contact Info) Description 07/15/2014 Orders Only [facility] Provider, MD Toney [address] [place] [address] Social History Tobacco Use Types Packs/Day Years Used Date Smoking Tobacco: Never Assessed Comments Unknown Sex and Gender Information Value Date Recorded Sex Assigned at Not on file 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 us Historical Provider CV CARDIAC SERVICES [facility] Final Result documented in this encounter Visit Diagnoses Not on filedocumented in this encounter Care Teams Checker Cashier Relationship Specialty Start Date End Date Robert Bernard MD PCP - General 10/06/16 01/06/25 Ela Hampton MD [address] [place] [address] PCP - General Family Medicine 01/07/25 Mark Mccurdy MD [address] [place] [address] Referring Physician Cardiology 01/21/20 documented as of this encounter
--- OUTSIDE RECORDS SUMMARY | 2025-04-17 03:12 | XMS_ITS | Encounter Summary ---
Author Organization [facility] [employer] [facility] Address [address] [place] [address] Phone Care Team Providers Care Hydraulic Spinner Name Role Phone Robert Bernard MD Primary Care Provider Mark Mccurdy MD Unavailable [phone] Ela Hampton MD Primary Care Provider Encounter Details Date Type Department Care Team (Late st Contact Info) Description 12/10/2015 Orders Only [facility] Provider, MD Toney [address] [place] [address] Social History Tobacco Use Types Packs/Day Years Used Date Smoking Tobacco: Never Assessed Comments Unknown Sex and Gender Information Value Date Recorded Sex Assigned at Not on file 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
--- OUTSIDE RECORDS SUMMARY | 2025-04-17 03:12 | XMS_ITS | Encounter Summary ---
Author Organization [facility] [employer] [facility] Address [address] [place] [address] Phone Care Team Providers Care Experimental Rocketsled Mechanic Name Role Phone Robert Bernard MD Primary Care Provider Mark Mccurdy MD Unavailable [phone] Ela Hampton MD Primary Care Provider Encounter Details Date Type Department Care Team (Late st Contact Info) Description 09/05/2014 Orders Only [facility] Provider, MD Toney [address] [place] [address] Social History Tobacco Use Types Packs/Day Years Used Date Smoking Tobacco: Never Assessed Comments Unknown Sex and Gender Information Value Date Recorded Sex Assigned at Not on file 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 us Historical Provider CV CARDIAC SERVICES [facility] Final Result documented in this encounter Visit Diagnoses Not on filedocumented in this encounter Care Teams Experimental Rocketsled Mechanic Relationship Specialty Start Date End Date Robert Bernard MD PCP - General 10/06/16 01/06/25 Ela Hampton MD [address] [place] [address] PCP - General Family Medicine 01/07/25 Mark Mccurdy MD [address] [place] [address] Referring Physician Cardiology 01/21/20 documented as of this encounter
--- OUTSIDE RECORDS SUMMARY | 2025-04-17 03:12 | XMS_ITS | Encounter Summary ---
Author Organization [facility] Address [address] [place] [address] Phone Care Team Providers Care Parer Name Role Phone Robert Bernard MD Primary Care Provider Mark Mccurdy MD Unavailable [phone] Ela Hampton MD Primary Care Provider Encounter Details Date Type Department Care Team (Late st Contact Info) Description 09/24/2015 Orders Only [facility] Provider, MD Toney [address] [place] [address] Social History Tobacco Use Types Packs/Day Years Used Date Smoking Tobacco: Never Assessed Comments Unknown Sex and Gender Information Value Date Recorded Sex Assigned at Not on file 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 us Historical Provider [facility] Final Result documented in this encounter Visit Diagnoses Not on filedocumented in this encounter Care Teams Parer Relationship Specialty Start Date End Date Robert Bernard MD PCP - General 10/06/16 01/06/25 Ela Hampton MD [address] [place] [address] PCP - General Family Medicine 01/07/25 Mark Mccurdy MD [address] [place] [address] Referring Physician Cardiology 01/21/20 documented as of this encounter
--- OUTSIDE RECORDS SUMMARY | 2025-04-17 03:12 | XMS_ITS | Encounter Summary ---
Author Organization [facility] Address [address] [place] [address] Care Team Providers Care Licensed Prosthetist/Orthotist Name Role Phone Robert Bernard MD Primary Care Provider [phone] Mark Mccurdy MD Unavailable [phone] Ela Hampton MD Primary Care Provider Reason for Visit * Reason Onset Date Comments Med Refill 10/27/2019 Encounter Details Date Type Department Care Team (Late st Contact Info) Description 10/27/[address] [facility] [address] [facility] [address] [place] [address] Olamide Pruitt MD [address] [place] [address] Med Refill Social History Tobacco Use Types Packs/Day Years Used Date Smoking Tobacco: Former Cigarettes Q uit: 2008 Smokeless Tobacco: Never AUDIT-C Answer Date Recorded Q1: How often do you have a drink containing alc ohol? 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 Never 10/28/2019 1:33 PM CDT Gillian Vela, RN documented as of this encounter Plan of Treatment Not on file documented as of this encounter Goals Goal Patient Goal Type Associated Problems Recent Progress Patient-Stated? Author CCM Chronic Pain Care Plan Chronic Care Management No change(03/30 10:46 AM CABLE DISPATCHER) No Gillian Vela RN Note: Problem: Chronic Pain Goals: 1. Minimize further functional decline 2. Maximize quality of life 3. Control pain Strategies: - Activity/exercise program recommendation - Conservative stepwise pain medicine strategy with multi-disciplinary approach - Recommend healthy lifestyle strategies and compensatory methods as needed documented as of this encounter Visit Diagnoses Not on filedocumented in this encounter Care Teams Licensed Prosthetist/Orthotist Relationship Specialty Start Date End Date Robert Bernard MD PCP - General 10/06/16 01/06/25 Ela Hampton MD [address] [place] [address] PCP - General Family Medicine 01/07/25 Mark Mccurdy MD [address] [place] [address] Referring Physician Cardiology 01/21/20 documented as of this encounter
--- OUTSIDE RECORDS SUMMARY | 2025-04-17 03:12 | XMS_ITS | Clinical Summary ---
Author Organization [facility] Address [address] [place] [address] Care Team Providers Care Lean Manufacturing Specialist Name Role Phone Mark Mccurdy MD Unavailable [phone] Ela Hampton MD Primary Care Provider Allergies No known active allergies Medications atorvastatin (LIPITOR) 10 mg tablet TAKE 1 TABLET BY MOUTH EVERY DAY AT BEDTIME 30 tablet 11 2 Active clopidogreL (PLAVIX) 75 mg tablet TAKE 1 TABLET BY MOUTH DAILY 30 tablet 10 4 Active metoprolol XL (TOPROL-XL) 100 mg 24 hr tablet TAKE 1 TABLET BY MOUTH DAILY 30 tablet 10 4 Active hydrOXYzine (ATARAX) 50 mg tablet Take 1-2 tablets (50-100 mg total) by mouth 3 (three) times a day as needed for anxiety (Pt reports taking 2 tablets every other week (situational)) Active lidocaine (LIDODERM) 5 %Indications:Ne uropathic Pain Place 1 patch on the skin daily for 12 hours Remove & discard patch(es) within 12 hours or as directed by 30 patch 11 5 05/03/20 25 Active gabapentin (NEURONTIN) 300 mg capsuleIndicati ons:Neuropathic Pain Take 1 capsule (300 mg) by mouth at bedtime, take twice daily (in AM and PM) and gradually increase one capsule every 5 days up to 4 capsules (1200mg) BID. 240 capsule 4 5 09/01/19 26 Active Active Problems Problem Noted Date Diagnosed Date Altered mental status 01/08/2025 Altered mental status, unspe cified altered mental status type 01/06/2025 Left arm numbness 01/06/2025 Assessment & Plan (01/08/2025 5:11 PM CDT): History of cryptogenic stroke, secondary to PVM, s/p embolization --Continue home meds: Metoprolol 100 mg QD The patient presented to the ED with 14 days of numbness of her left arm and bilateral facial numbness. Prior right parietal ischemic stroke in April 2024 complicated by residual left-sided weakness and mild cognitive impairment. Etiology thought to be 2/2 a pulmonary arteriovenous malformation (which was embolized). She also had a recurrent stroke in 2014 (left anterior insular cortex) without deficits. She previously followed in [facility] (last visit in 2019). --Continue Plavix and atorvastatin -Patient presented with AMS, bilateral facial and left arm numbness for several days. CT head without contrast showed no acute intracranial hemorrhage, hypoattenuation within right operculum, likely corresponds to T2 FLAIR hyperintensity on prior MRI, chronic encephalomalacia within medial left frontal lobe. -MRI preliminary showed no acute infarcts -Spoke with Neurology, after MRI, they recommended no other interventions. -Ready for discharge -PT OT recommended home Assessment & Plan (01/07/2025 4:03 PM CDT): History of cryptogenic stroke, secondary to PVM, s/p embolization --Continue home meds: Metoprolol 100 mg QD The patient presented to the ED with 14 days of numbness of her left arm and bilateral facial numbness. Prior right parietal ischemic stroke in April 2024 complicated by residual left-sided weakness and mild cognitive impairment. Etiology thought to be 2/2 a pulmonary arteriovenous malformation (which was embolized). She also had a recurrent stroke in 2014 (left anterior insular cortex) without deficits. She previously followed in Stroke Clinic (last visit in 2019). --MRI brain w/wo ordered --Follow up Neurology recommendations --Continue Plavix and atorvastatin Patient presented with AMS, bilateral facial and left arm numbness for several days. CT head without contrast showed no acute intracranial hemorrhage, hypoattenuation within right operculum, likely corresponds to T2 FLAIR hyperintensity on prior MRI, chronic encephalomalacia within medial left frontal lobe. --MRI brain W/WO ordered; Neurology consulted --New infarct likely due to history of ischemic strokes, continued numbness, and hyperlipidemia; less likely due to absence of weakness and speech changes --Infectious etiology less likely given infectious workup negative --Toxicologic etiology less likely due to negative toxicology screen, no elicit drug use reported Assessment & Plan (01/06/2025 3:41 PM CDT): The patient presented to the ED with 14 days of numbness of her left arm and bilateral facial numbness. Prior right parietal ischemic stroke in April 2024 complicated by residual left-sided weakness and mild cognitive impairment. Etiology thought to be 2/2 a pulmonary arteriovenous malformation (which was embolized). She also had a recurrent stroke in 2014 (left anterior insular cortex) without deficits. She previously followed in Stroke Clinic (last visit in 2019). --MRI brain w/wo ordered --Follow up Neurology recommendations --Continue Plavix and atorvastatin Facial numbness 01/06/2025 Assessment & Plan (01/08/2025 5:11 PM CDT): History of cryptogenic stroke, secondary to PVM, s/p embolization --Continue home meds: Metoprolol 100 mg QD The patient presented to the ED with 14 days of numbness of her left arm and bilateral facial numbness. Prior right parietal ischemic stroke in April 2024 complicated by residual left-sided weakness and mild cognitive impairment. Etiology thought to be 2/2 a pulmonary arteriovenous malformation (which was embolized). She also had a recurrent stroke in 2014 (left anterior insular cortex) without deficits. She previously followed in Stroke Clinic (last visit in 2019). --Continue Plavix and atorvastatin -Patient presented with AMS, bilateral facial and left arm numbness for several days. CT head without contrast showed no acute intracranial hemorrhage, hypoattenuation within right operculum, likely corresponds to T2 FLAIR hyperintensity on prior MRI, chronic encephalomalacia within medial left frontal lobe. -MRI preliminary showed no acute infarcts -Spoke with Neurology, after MRI, they recommended no other interventions. -Ready for discharge -PT OT recommended home Assessment & Plan (01/07/2025 4:03 PM CDT): History of cryptogenic stroke, secondary to PVM, s/p embolization --Continue home meds: Metoprolol 100 mg QD The patient presented to the ED with 14 days of numbness of her left arm and bilateral facial numbness. Prior right parietal ischemic stroke in April 2024 complicated by residual left-sided weakness and mild cognitive impairment. Etiology thought to be 2/2 a pulmonary arteriovenous malformation (which was embolized). She also had a recurrent stroke in 2014 (left anterior insular cortex) without deficits. She previously followed in Stroke Clinic (last visit in 2018). --MRI brain w/wo ordered --Follow up Neurology recommendations --Continue Plavix and atorvastatin Patient presented with AMS, bilateral facial and left arm numbness for several days. CT head without contrast showed no acute intracranial hemorrhage, hypoattenuation within right operculum, likely corresponds to T2 FLAIR hyperintensity on prior MRI, chronic encephalomalacia within medial left frontal lobe. --MRI brain W/WO ordered; Neurology consulted --New infarct likely due to history of ischemic strokes, continued numbness, and hyperlipidemia; less likely due to absence of weakness and speech changes --Infectious etiology less likely given infectious workup negative --Toxicologic etiology less likely due to negative toxicology screen, no elicit drug use reported Assessment & Plan (01/06/2025 3:26 PM CDT): Patient presented with AMS, bilateral facial and left arm numbness for several days. CT head without contrast showed no acute intracranial hemorrhage, hypoattenuation within right operculum, likely corresponds to T2 FLAIR hyperintensity on prior MRI, chronic encephalomalacia within medial left frontal lobe. --MRI brain W/WO ordered; Neurology consulted, awaiting their recommendations --New infarct likely due to history of ischemic strokes, continued numbness, and hyperlipidemia; less likely due to absence of weakness and speech changes --Infectious etiology less likely given infectious workup negative --Toxicologic etiology less likely due to negative toxicology screen, no elicit drug use reported Assessment & Plan (01/06/2025 3:41 PM CDT): The patient presented to the ED with 14 days of numbness of her left arm and bilateral facial numbness. Prior right parietal ischemic stroke in April 2024 complicated by residual left-sided weakness and mild cognitive impairment. Etiology thought to be 2/2 a pulmonary arteriovenous malformation (which was embolized). She also had a recurrent stroke in 2015 (left anterior insular cortex) without deficits. She previously followed in Stroke Clinic (last visit in 2018). --MRI brain w/wo ordered --Follow up Neurology recommendations --Continue Plavix and atorvastatin Patent foramen ovale 12/31/2017 SSS (sick sinus syndrome) 12/27/2017 Assessment & Plan (01/08/2025 5:11 PM CDT): Sick sinus syndrome with syncope. Loop recorder revealed proloinged sinus pauses which led to dual chamber pacemaker implantation in July 2014. -Last visit with Dr. Haddad 12/27/2024, pacemaker functioning well -EP consulted and cleared her for MRI. She had an episode of hypotension with pacemaker adjustment for MRI on 01/07 for which ACT was called, she was dizzy, nauseous and had flashes in her vision. Symptoms improved with fluids. Spoke with EP -Patient's symptoms resolved after IV fluids, vitals remained stable, tele with no events Assessment & Plan (01/07/2025 4:03 PM CDT): Sick sinus syndrome with syncope. Loop recorder revealed proloinged sinus pauses which led to dual chamber pacemaker implantation in July 2014. -Last visit with Dr. Haddad 12/27/2024, pacemaker functioning well -EP consulted and cleared her for MRI. She had an episode of hypotension with pacemaker adjustment for MRI on 01/07 for which ACT was called, she was dizzy, nauseous and had flashes in her vision. Symptoms improved with fluids. Spoke with EP -To attempt MRI again tomorrow Assessment & Plan (01/06/2025 2:38 PM CDT): Sick sinus syndrome with syncope. Loop recorder revealed proloinged sinus pauses which led to dual chamber pacemaker implantation in July 2014. -Last visit with Dr. Haddad 12/27/2024, pacemaker functioning well Assessment & Plan (01/06/2025 2:17 PM CDT): Status post pacemaker placement. She follows with [facility]. Assessment & Plan (01/02/2025 9:00 AM CDT): -History of cryptogenic stroke and recurrent syncope. Loop recorder revealed prolonged sinus pauses leading to Medtronic dual chamber pacemaker implantation on 27 July 2014. She also had a history of pulmonary AVM repair. 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 Prior right parietal ischemic stroke in April 2024 complicated by residual left-sided weakness and mild cognitive impairment. Etiology thought to be 2/2 a pulmonary arteriovenous malformation (which was embolized). She also had a recurrent stroke in 2014 (left anterior insular cortex) without deficits. She previously followed in [facility]roke Clinic (last visit in 2018). --Continue Plavix and atorvastatin -Patient presented with AMS, bilateral facial and left arm numbness for several days. CT head without contrast showed no acute intracranial hemorrhage, hypoattenuation within right operculum, likely corresponds to T2 FLAIR hyperintensity on prior MRI, chronic encephalomalacia within medial left frontal lobe. -MRI preliminary showed no acute infarcts -Spoke with Neurology, after MRI, they recommended no other interventions. -Ready for discharge -PT OT recommended home Assessment & Plan (01/07/2025 4:03 PM CDT): History of cryptogenic stroke, secondary to PVM, s/p embolization --Continue home meds: Metoprolol 100 mg QD The patient presented to the ED with 14 days of numbness of her left arm and bilateral facial numbness. Prior right parietal ischemic stroke in April 2024 complicated by residual left-sided weakness and mild cognitive impairment. Etiology thought to be 2/2 a pulmonary arteriovenous malformation (which was embolized). She also had a recurrent stroke in 2015 (left anterior insular cortex) without deficits. She previously followed in [facility] (last visit in 2019). --MRI brain w/wo ordered --Follow up Neurology recommendations --Continue Plavix and atorvastatin Patient presented with AMS, bilateral facial and left arm numbness for several days. CT head without contrast showed no acute intracranial hemorrhage, hypoattenuation within right operculum, likely corresponds to T2 FLAIR hyperintensity on prior MRI, chronic encephalomalacia within medial left frontal lobe. --MRI brain W/WO ordered; Neurology consulted --New infarct likely due to history of ischemic strokes, continued numbness, and hyperlipidemia; less likely due to absence of weakness and speech changes --Infectious etiology less likely given infectious workup negative --Toxicologic etiology less likely due to negative toxicology screen, no elicit drug use reported Assessment & Plan (01/06/2025 2:38 PM CDT): History of cryptogenic stroke, secondary to PVM, s/p embolization --Continue home meds: Metoprolol 100 mg QD Assessment & Plan (01/06/2025 3:41 PM CDT): The patient presented to the ED with 14 days of numbness of her left arm and bilateral facial numbness. Prior right parietal ischemic stroke in April 2024 complicated by residual left-sided weakness and mild cognitive impairment. Etiology thought to be 2/2 a pulmonary arteriovenous malformation (which was embolized). She also had a recurrent stroke in 2015 (left anterior insular cortex) without deficits. She previously followed in [facility] (last visit in 2019). --MRI brain w/wo ordered --Follow up Neurology recommendations --Continue Plavix and atorvastatin Dyslipidemia 11/02/2014 Assessment & Plan (01/08/2025 5:11 PM CDT): Last lipid panel 02/2021 WNL. --Continue Atorvastatin 10mg QD Assessment & Plan (01/07/2025 4:03 PM CDT): Last lipid panel 02/2021 WNL. --Continue Atorvastatin 10mg QD Assessment & Plan (01/06/2025 2:38 PM CDT): Last lipid panel 02/2021 WNL. --Continue Atorvastatin 10mg QD Assessment & Plan (01/06/2025 2:17 PM CDT): --Continue home atorvastatin 10 mg q day Encounters Date Type Department Care Team Description 04/03/2025 9:00 AM ELECTRONIC PREPRESS SYSTEM OPERATOR Office Visit 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 Never 10/28/2019 Average Number of Drinks Not on file 020 Frequency of Binge Drinking Not on file 10/12 Personal Safety Answer Date Recorded Have you ever been in or are you currently in a harmful physical or emotional relationship or is someone making you feel afraid or unsafe? Denies 01/06/2025 Comments No Sex and Gender Information Value Date Recorded Sex Assigned at Not on file Legal Sex Female 5:12 AM ELECTRONIC PREPRESS SYSTEM OPERATOR Gender Identity Not on file Sexual Orientation Not on file Last Filed Vital Signs Vital Sign Reading Time Taken Comments Blood Pressure 120/82 04/03/2025 9:06 AM ELECTRONIC PREPRESS SYSTEM OPERATOR Pulse 90 04/03/2025 9:06 AM ELECTRONIC PREPRESS SYSTEM OPERATOR Temperature 37 C (98.6 F) 01/08/2025 2:14 PM CDT Respiratory Rate 18 01/08/2025 2:14 PM CDT Oxygen Saturation 95% 01/08/2025 4:15 PM CDT Inhaled Oxygen Concentration - - Weight 78.7 kg (173 lb 6.4 oz) 04/03/2025 9:06 A M ELECTRONIC PREPRESS SYSTEM OPERATOR Height 165.1 cm (5' 5) 04/03/2025 9:06 AM ELECTRONIC PREPRESS SYSTEM OPERATOR Body Mass Index 28.86 04/03/2025 9:06 AM ELECTRONIC PREPRESS SYSTEM OPERATOR Plan of Treatment Health Maintenance Due Date Last Done Comments Colon Cancer Screening-Colonoscopy 1976 Depression Screening 1976 Hepatitis C Screening 1976 Hepatitis B Screening 1994 Regular Well Visit/Exam 18-64 1994 Breast Cancer Screening-Mammogram 11/01/2023 10/31/2022 Influenza Vaccine (#1) 2025 8, 02/07/2016 DTaP/Tdap/Td Vaccine (3 - Td or Tdap) 01/10/2026 01/11/2016, 10/03/2011 Pneumococcal vaccine <65 Aged Out No longer eligible based on patient's age to complete this topic Goals Goal Patient Goal Type Associated Problems Recent Progress Patient-Stated? Author CCM Chronic Pain Care Plan Chronic Care Management No change(03/30 10:46 AM ELECTRONIC PREPRESS SYSTEM OPERATOR) No Gillian Vela, LEEANNA Note: Problem: Chronic Pain Goals: 1. Minimize further functional decline 2. Maximize quality of life 3. Control pain Strategies: - Activity/exercise program recommendation - Conservative stepwise pain medicine strategy with multi-disciplinary approach - Recommend healthy lifestyle strategies and compensatory methods as needed Medical Devices Implanted Type Area Research Psychologist Device Identifier Shelf Expiration Date Model / Serial / Lot Embolization Coils .018-12/08/2016 Implanted:2016 by Fortunato Marcus MD PhD (Quantity not on file) Embolization Coil Lung Medtronic Pm Novus Lead 5076 45cm 12/27/2014-2014 Implanted:2014 (Quantity not on file) Lead Chest Medtronic 5076 / [id number] / Medtronic Pm Novus Lead [id number] 52cm 12/27/2014-2014 Implanted:2014 (Quantity not on file) Lead Chest Medtronic 5076 / [id number] / Medtronic Pm. Advisa [id number] 07/27/2014- 015 Implanted:Qty: 1 on 07/27/2014 Pacemaker Chest Medtronic [id number] / [id number] / Insurance [facility] MEDICARE MEDICARE [facility] OTHER Address: [address] [place] [address] MEDICARE IDPA Advance Directives For more information, please contact: [phone] * Full Code (Latest Code Status on File) Date Activated Date Inactivated Comments 01/06/2025 9:02 PM 01/08/2025 10:12 PM Care Teams Lean Manufacturing Specialist Relationship Specialty Start Date End Date Ela Hampton MD [address] [place] [id number] PCP - General Family Medicine 01/07/25 Mark Mccurdy MD [address] [place] [address] Referring Physician Cardiology 01/21/20
--- OUTSIDE RECORDS SUMMARY | 2025-04-17 03:12 | XMS_ITS | Encounter Summary ---
Author Organization [facility] [employer] [facility] Address [address] [place] [address] Phone Care Team Providers Care Extractions Technician Name Role Phone Robert Bernard MD Primary Care Provider Mark Mccurdy MD Unavailable [phone] Ela Hampton MD Primary Care Provider Encounter Details Date Type Department Care Team (Late st Contact Info) Description 07/28/2014 Orders Only [facility]INCONV Provider, MD Toney [address] [place] [id number] Social History Tobacco Use Types Packs/Day Years Used Date Smoking Tobacco: Never Assessed Comments Unknown Sex and Gender Information Value Date Recorded Sex Assigned at Not on file Legal Sex Female 

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
--- OUTSIDE RECORDS SUMMARY | 2025-04-17 03:12 | XMS_ITS | Encounter Summary ---
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
--- OUTSIDE RECORDS SUMMARY | 2025-04-17 03:12 | XMS_ITS | Encounter Summary ---
Author Organization [facility] Address [address] [place] [address] Phone Care Team Providers Care Manager Strategic Marketing Name Role Phone Robert Bernard MD Primary Care Provider Mark Mccurdy MD Unavailable [phone] Ela Hampton MD Primary Care Provider Encounter Details Date Type Department Care Team (Late st Contact Info) Description 11/05/2016 Orders Only [facility] Provider, MD Toney [address] [place] [address] Social History Tobacco Use Types Packs/Day Years Used Date Smoking Tobacco: Never Assessed Comments Unknown Sex and Gender Information Value Date Recorded Sex Assigned at Not on file 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 us Historical Provider [facility] Final Result documented in this encounter Visit Diagnoses Not on filedocumented in this encounter Care Teams Manager Strategic Marketing Relationship Specialty Start Date End Date Robert Bernard MD PCP - General 10/06/16 01/06/25 Ela Hampton MD [address] [place] [address] PCP - General Family Medicine 01/07/25 Mark Mccurdy MD [address] [place] [address] Referring Physician Cardiology 01/21/20 documented as of this encounter
--- OUTSIDE RECORDS SUMMARY | 2025-04-17 03:12 | XMS_ITS | Encounter Summary ---
Author Organization [facility] Address [address] [place] [address] Phone Care Team Providers Care Dry Heat Room Attendant Name Role Phone Robert Bernard MD Primary Care Provider [phone] Mark Mccurdy MD Unavailable [phone] Ela Hampton MD Primary Care Provider Encounter Details Date Type Department Care Team (Late st Contact Info) Description 10/19/2017 Telephone [facility] Cardiology 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
--- OUTSIDE RECORDS SUMMARY | 2025-04-17 03:12 | XMS_ITS | Encounter Summary ---
Author Organization [facility] [employer] [facility] Address [address] [place] [address] Phone Care Team Providers Care Wooden Boat Builder Name Role Phone Robert Bernard MD Primary Care Provider Mark Mccurdy MD Unavailable Ela Hampton MD Primary Care Provider Encounter Details Date Type Department Care Team (Late st Contact Info) Description 06/06/2015 Orders Only [facility] Provider, MD Toney [address] [place] [address] Social History Tobacco Use Types Packs/Day Years Used Date Smoking Tobacco: Never Assessed Comments Unknown Sex and Gender Information Value Date Recorded Sex Assigned at Not on file Legal Sex Female 5:12 AM ACTUARY Gender Identity Not on file Sexual Orientation [...] Narrative 06/06/2015 Ordered by an unspecified provider. us Historical Provider [facility] Final Result documented in this encounter Visit Diagnoses Not on filedocumented in this encounter Care Teams Wooden Boat Builder Relationship Specialty Start Date End Date Robert Bernard MD PCP - General 10/06/16 01/06/25 Ela Hampton MD [address] [place] [address] PCP - General Family Medicine 01/07/25 Mark Mccurdy MD [address] [place] [address] Referring Physician Cardiology 01/21/20 documented as of this encounter
--- OUTSIDE RECORDS SUMMARY | 2025-04-17 03:12 | XMS_ITS | Encounter Summary ---
Author Organization [facility] Address [address] [place] [address] Phone Care Team Providers Care Pencils Washer Name Role Phone Robert Bernard MD Primary Care Provider Mark Mccurdy MD Unavailable [phone] Ela Hampton MD Primary Care Provider Encounter Details Date Type Department Care Team (Late st Contact Info) Description 02/01/2015 Orders Only [facility] Provider, MD Toney [address] [place] [address] Social History Tobacco Use Types Packs/Day Years Used Date Smoking Tobacco: Never Assessed Comments Unknown Sex and Gender Information Value Date Recorded Sex Assigned at Not on file 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 us Historical Provider [facility] Final Result documented in this encounter Visit Diagnoses Not on filedocumented in this encounter Care Teams Pencils Washer Relationship Specialty Start Date End Date Robert Bernard MD PCP - General 10/06/16 01/06/25 Ela Hampton MD [address] [place] [address] PCP - General Family Medicine 01/07/25 Mark Mccurdy MD [address] [place] [address] Referring Physician Cardiology 01/21/20 documented as of this encounter
--- OUTSIDE RECORDS SUMMARY | 2025-04-17 03:12 | XMS_ITS | Encounter Summary ---
Author Organization [facility] Address [address] [place] [address] Phone Care Team Providers Care Crystal Mounter Name Role Phone Robert Bernard MD Primary Care Provider Mark Mccurdy MD Unavailable [phone] Ela Hampotn MD Primary Care Provider Encounter Details Date Type Department Care Team (Late st Contact Info) Description 07/03/2015 Orders Only [facility] Provider, MD Toney [address] [place] [address] Social History Tobacco Use Types Packs/Day Years Used Date Smoking Tobacco: Never Assessed Comments Unknown Sex and Gender Information Value Date Recorded Sex Assigned at Not on file 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 us Historical Provider [facility] Final Result documented in this encounter Visit Diagnoses Not on filedocumented in this encounter Care Teams Crystal Mounter Relationship Specialty Start Date End Date Robert Bernard MD PCP - General 10/06/16 01/06/25 Ela Hampton MD [address] [place] [address] PCP - General Family Medicine 01/07/25 Mark Mccurdy MD [address] [place] [address] Referring Physician Cardiology 01/21/20 documented as of this encounter
--- OUTSIDE RECORDS SUMMARY | 2025-04-17 03:12 | XMS_ITS | Encounter Summary ---
Author Organization [facility] Address [address] [place] [address] Phone Care Team Providers Care Etl Consultant Name Role Phone Robert Bernard MD Primary Care Provider Mark Mccurdy MD Unavailable [phone] Ela Hampton MD Primary Care Provider Encounter Details Date Type Department Care Team (Late st Contact Info) Description 07/30/2014 Orders Only [facility] Provider, MD Toney [address] [place] [address] Social History Tobacco Use Types Packs/Day Years Used Date Smoking Tobacco: Never Assessed Comments Unknown Sex and Gender Information Value Date Recorded Sex Assigned at Not on file 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
--- OUTSIDE RECORDS SUMMARY | 2025-04-17 03:12 | XMS_ITS | Encounter Summary ---
Author Organization [facility] Address [address] [place] [address] Phone Care Team Providers Care Charge Account Clerk Name Role Phone Robert Bernard MD Primary Care Provider [phone] Mark Mccurdy MD Unavailable [phone] Ela Hampton MD Primary Care Provider Encounter Details Date Type Department Care Team (Late st Contact Info) Description 04/14/2015 Orders Only [facility] Provider, MD Toney [address] [place] [address] Social History Tobacco Use Types Packs/Day Years Used Date Smoking Tobacco: Never Assessed Comments Unknown Sex and Gender Information Value Date Recorded Sex Assigned at Not on file 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
--- OUTSIDE RECORDS SUMMARY | 2025-04-17 03:12 | XMS_ITS | Encounter Summary ---
Author Organization [facility] Address [address] [place] [address] Phone Care Team Providers Care Trust Accounts Supervisor Name Role Phone Robert Bernard MD Primary Care Provider Mark Mccurdy MD Unavailable [phone] Ela Hampton MD Primary Care Provider Encounter Details Date Type Department Care Team (Late st Contact Info) Description 09/26/2014 Orders Only [facility] Provider, MD Toney [address] [place] [address] Social History Tobacco Use Types Packs/Day Years Used Date Smoking Tobacco: Never Assessed Comments Unknown Sex and Gender Information Value Date Recorded Sex Assigned at Not on file 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 us Historical Provider [facility] Final Result documented in this encounter Visit Diagnoses Not on filedocumented in this encounter Care Teams Trust Accounts Supervisor Relationship Specialty Start Date End Date Robert Bernard MD PCP - General 10/06/16 01/06/25 Ela Hampton MD [address] [place] [address] PCP - General Family Medicine 01/07/25 Mark Mccurdy MD [address] [place] [address] Referring Physician Cardiology 01/21/20 documented as of this encounter
[2025-04-17 03:15] VITALS: PULSE 85; RESP 14; O2SAT 99
[2025-04-17 03:16] VITALS: BP 108/79; PULSE 89; RESP 19; O2SAT 98
--- NOTE | 2025-04-17 03:21 | ED_ITS ---
HPI - Back Pain/Injury General Chief Complaint: Dizziness Stated Complaint: CHEST PAIN Time Seen by Provider: 04/17/25 03:09 Source: patient and EMS Mode of arrival: EMS Limitations: no limitations History of Present Illness HPI Narrative: This is a 41-year-old female with a history of pacemaker history of CVA presents this morning via EMS because of anxiety and left lower back pain, the patient does attribute her back pain to having done some heavy lifting and moving earlier this afternoon otherwise no chest pain no shortness of breath no fever chills does have some nausea with no vomiting no abdominal pain no dysuria or hematuria no diarrhea constipation. Patient has gotten quite a bit of relief by prior to arrival by using her lidocaine patch and baclofen. But has been anxious and concerned that her pacemaker is not working appropriately MD elicited complaint: back pain Onset (ago): hour(s) Timing: constant Severity: mild Pain scale (0-10): 3 Quality: aching and spasming Related Data Allergies Allergy/AdvReac Type Severity Reaction Status Date / Time No Known Allergies Allergy Verified 04/17/25 03:02 Review of Systems Review of Systems: All systems reviewed & are unremarkable except as noted in HPI and below PMFSH Past Medical History Medical History History of CVA (cerebrovascular accident) Pacemaker Exam Const: General: healthy appearing and no acute distress Nutritional Appearance: well nourished Orientation/consciousness: patient oriented x3 Limitations: no limitations Neck: Neck: normal visual inspection, no lymphadenopathy and no meningeal signs Chest: Chest palpation & inspection: normal inspection of the chest Resp: Effort & Inspection: normal respiratory effort Auscultation: clear to auscultation bilaterally Cardio: Rate: regular rate Rhythm: regular rhythm GI: Auscultation: normal bowel sounds : General: Yes bladder normal to palpation Back/Spine/Pelvis: Back: no CVA tenderness Skin: General skin exam: normal color Rashes: no rashes Neuro: General: patient oriented x3, moves all extremities, no meningeal signs and no focal motor deficits Cranial nerves: Yes Nystagmus not present Speech: normal speech Gait exam (Neuro): Normal gait present Extrem: Other: Left lower back pain elicited with palpation Psych: Affect: Anxious affect present Course Course Emergency Course: Medical decision making nares: The patient was evaluated by myself in the emergency department. History obtained from the patient was independent historian physical exam performed witnessed by nurse. External medical records were reviewed at this time. Patient is currently back to her baseline with no anxiety her pain level has markedly improved with her home medication Patient was concerned about her pacemaker and EKG performed shows normal sinus rhythm with a heart rate of [address] or T changes. Repeat assessment: Patient doing well on repeat exam with no acute distress Symptoms improved since arrival to the emergency department. Repeat vitals are stable Patient agrees with discussion and after shared medical decision-making and agrees with discharge All questions answered to the patient's satisfaction Advised patient to take medication as prescribed and follow-up with primary care physician within next 3 to 5 days. Patient provided with strict return precautions and return to the emergency department if any worsening symptoms. Vital Signs Vital signs: Vital Signs Temperature 36.7 C 04/17/25 02:57 Pulse Rate 90 04/17/25 02:57 Respiratory Rate 16 04/17/25 02:57 Blood Pressure 109/73 04/17/25 02:57 Pulse Oximetry 99 04/17/25 02:57 Oxygen Delivery Room Air 04/17/25 02:57 Temperature 36.7 C 04/17/25 02:57 Pulse Rate 90 04/17/25 02:57 Respiratory Rate 16 04/17/25 02:57 Blood Pressure 109/73 04/17/25 02:57 Pulse Oximetry 99 04/17/25 02:57 Oxygen Delivery Room Air 04/17/25 02:57 MDM Differential Diagnosis Differential Diagnosis: Back strain Critical Care Time Critical Care Time Critical Care Time: No Discharge Plan Discharge Clinical Impression: Back strain Qualifiers: Encounter type: initial encounter Qualified Code(s): S39.012A - Strain of muscle, fascia and tendon of lower back, initial encounter Patient Disposition: Home Condition: Stable Instructions: Antibiotic Form, Low Back Strain (ED) Additional Instructions: Advised patient to take medication as prescribed and to follow with primary care physician within next 3 to 5 days for further evaluation and treatment. Patient Language: Lithuanian Prescriptions: New baclofen 20 mg tablet 20 mg PO DAILY PRN (Reason: back pain) Qty: 30 0RF ondansetron 4 mg tablet,disintegrating 4 mg PO Q6H PRN (Reason: nausea and vomiting) Qty: 20 0RF Follow-up/Referrals: Memo,Ela Marin MD [Primary Care Provider, Unknown] Time of Disposition: 03:30
[2025-04-17] MEDS: ONDANSETRON HCL ODT 4 MG TABLET PO (03:29)
[2025-04-17 03:41] VITALS: BP 106/76; PULSE 79; RESP 18; TEMP 36.6; O2SAT 99
== END 2025-04-17 03:41 | disposition home or self-care (01) ==
PROVIDERS: Emergency Provider Emergency Medicine; PCP Family Medicine
DX: S39.012A Strain of muscle, fascia and tendon of lower back, initial encounter (principal); Z86.73 Personal history of transient ischemic attack (TIA), and cerebral infarction without residual deficits; X50.0XXA Overexertion from strenuous movement or load, initial encounter
CPT/HCPCS: 93005; 99283; 99284; A9270